=== PATIENT | female | born 1950 | race African-American/Black ===

== ENCOUNTER → 2016-12-27 | Outpatient (CLI) | payer MEDICARE ==
--- NOTE | 2016-12-28 09:18 | MM ---
Reason for exam: screening (asymptomatic). Last mammogram was performed 2 years and 7 months ago. History: Patient is postmenopausal. Benign cyst aspiration of the right breast, 2002. Took hormonal contraceptives for 1 year beginning at age 21. Took estrogen for 1 year beginning at age 46. Physical Findings: A clinical breast exam by your physician is recommended on an annual basis and results should be correlated with mammographic findings. MG 3D Screening Mammo W/Cad Bilateral CC and MLO view(s) were taken. Prior study comparison: June 09, 2014, bilateral MG screening mammo w CAD. May 09, 2012, CAD bilateral diagnostic mammogram. The breast tissue is heterogeneously dense. This may lower the sensitivity of mammography. There is chronic nodularity bilaterally. There is no dominant lesion. There is no discrete abnormality. No significant changes when compared with prior studies. ASSESSMENT: Benign, BI-RAD 2 RECOMMENDATION: Routine screening mammogram of both breasts in 1 year.
== END | disposition home or self-care (01) ==
LOC: RADMAMWWP 13:51
PROVIDERS: ATTEND Family Medicine
DX: Z12.31 Encounter for screening mammogram for malignant neoplasm of breast (principal)
CPT/HCPCS: 77063; G0202

== ENCOUNTER → 2017-04-26 | Outpatient (CLI) | payer MEDICARE ==
--- NOTE | 2017-04-26 22:14 | WWHP ---
[facility] - HISTORY AND PHYSICAL CHIEF COMPLAINT: The patient is here for her routine gynecologic exam. HPI: This is a 66-year-old G4, P3-0-1-3 with an LMP of 1996. She is status post TAE for endometriosis. She states it has been approximately 3 years since her last pelvic exam. She states that a cholesterol medication causes her to have urinary symptoms consisting of dysuria. She discontinued that cholesterol medication about 2 years ago and her symptoms improved. She states since then she has noticed some dropping of her bladder into the vagina. She states she can occasionally feel the bulge at the vaginal opening. She has states her urine flow and bowel movements seem to be slower than in the past. She occasionally has to get to the bathroom right away to urinate and sometimes she can leak if she does not get to the bathroom in time. She does not feel that she empties her bladder completely. PAST MEDICAL HISTORY: Anxiety, elevated cholesterol, type 2 diabetes, chronic hypertension, and hiatal hernia. MEDICATIONS: Alprazolam 0.25 mg daily, aspirin 81 mg q.h.s., Centrum Silver vitamin 1 daily, calcium citrate 250 mg b.i.d., fenofibrate 54 mg b.i.d., Jentadueto 2.10/999 mg daily, losartan 25 mg daily, omeprazole 40 mg daily. ALLERGIES: No known drug allergies. PAST SURGICAL HISTORY: Cholecystectomy 2006, ectopic surgery in the past, TAE in 1996, neck surgeries in 1992 and 1996, shoulder surgery 1996 and 2012. Back surgery 2016. Hernia repair 1967. Tubal ligation 1973. PAST HARDSCAPE FOREMAN HISTORY: She is status post hysterectomy for endometriosis. She has no history of STDs. SOCIAL HISTORY: She quit smoking in 2009 and has 0 to 1 alcohol-containing drink per month. She denies drug use. She has been since 1971 and is retired. FAMILY HISTORY: Brother and sister had an NH. Mother had diabetes. She denies family history of cancer of the breast, uterus or ovaries or colon. PAST OB HISTORY: Three vaginal deliveries and she did have 1 ectopic . REVIEW OF SYSTEMS: About a year ago she lost about 10 pounds but gained about 3 pounds back and this was lost with the diet and exercise. She denies respiratory, cardiac or GI problems. She denies maltreatment or falling. : Occasional leakage with coughing and sneezing. She also feels that she has to get to the bathroom right away on occasion, otherwise, she will leak. PHYSICAL EXAM: Blood pressure 141/86, height 5 feet 7 inches, weight 169 pounds, temperature 96.5, pulse 74. This is a well-developed, well-nourished, black female who is alert and oriented x3, in no acute distress. HEENT: Within normal limits. NECK: Supple without mass or thyromegaly. CHEST AND LUNGS: Clear to auscultation. HEART: Regular rate and rhythm. Breasts are without mass or discharge. Axillary exam is negative for adenopathy. Back negative for CVA tenderness. ABDOMEN: Soft, nontender, without palpable masses. PELVIC EXAM: External genitalia reveals moderate atrophy without lesions. At rest, there is vaginal mucosa at the introitus. This is consistent with a grade 3 cystocele. The vaginal cuff is well-supported. There is also grade 2 to 3 rectocele. There is slight thickening of the mucosal tissue overlying the cystocele at the introitus. This is reducible. Bimanual exam is negative for mass or tenderness. Rectovaginal exam confirms a rectocele but is negative for mass or tenderness. Stool was negative for occult blood. EXTREMITIES: Nontender. IMPRESSION: 1. 66-year-old menopausal female, status post TAE with mildly symptomatic grade 3 cystocele and grade 2 to 3 rectocele. 2. Multiple medical problems. PLAN: 1. Pap smears have been discontinued. 2. Self breast examination was discussed. 3. Mammogram was done on 12/27/2016 and was benign. She will repeat this in 1 year. 4. We have had a long discussion regarding her pelvic prolapse. We discussed options including surgical correction, conservative management and pessary use. At this time, we will proceed with conservative management. She will avoid holding her urine or stool longer than necessary. She will also avoid heavy repetitive lifting. She will try negative Valsalva exercises and this was explained to her. 5. The ACOG handout on pelvic relaxation was given to the patient. She will proceed with conservative management. If she would like to proceed with surgical correction, she will call for re-evaluation and referral. 6. She will return in 1 year and p.r.n. 7. Total time spent with the patient 50 minutes. MMODL / IJN: [id number] /
== END ==
LOC: WWCWWP 10:43
PROVIDERS: ATTEND Obstetrics & Gynecology
DX: Z01.419 Encounter for gynecological examination (general) (routine) without abnormal findings (principal)

== ENCOUNTER → 2017-10-04 | Outpatient (CLI) | payer MEDICARE ==
[2017-10-04 08:39] VITALS: BP 154/83; PULSE 88; RESP 18; TEMP 98.7; BMI 26.7
--- NOTE | 2017-10-04 09:46 | P.HPOB ---
History of Present Illness H&P Date: 10/04/17 Chief Complaint: Patient is here for her routine gynecologic exam. This is a 67-year-old with an LMP of 1996. She status post TAE for benign reasons. The patient has a history of a cystocele and rectocele. She believes she is noticing a greater bulge especially when standing for longer periods of time. She states it is difficult to completely empty out her rectum. She also notices some pelvic discomfort when she has been on her feet a long time. Review of Systems Weight has been stable. She denies respiratory or cardiac problems. G.I.: occasional gastric reflux. She denies maltreatment or falling. : it can be difficult to completely empty the bladder. She does have occasional urinary leakage. Past Medical History Past Medical History: Diabetes Mellitus, Hyperlipidemia, Hypertension, Osteoarthritis (OA) Additional Past Medical History / Comment(s): MIGRAINE HEADACHES, hiatal hernia. Past OB history: 3 vaginal deliveries and one ectopic . Past VIRTUAL CUSTOMER ASSISTANT history: she had endometriosis and underwent TAE for this. She has no history of STDs. History of Any Multi-Drug Resistant Organisms: None Reported Past Surgical History: Cholecystectomy, Hernia Repair, Hysterectomy (TAE in 1996 ), Orthopedic Surgery, Tubal Ligation Additional Past Surgical History / Comment(s): NECK FUSION X2, LEFT SHOULDER, UMBILICAL HERNIA. Surgery for ectopic . Colonoscopy 2013. Past Anesthesia/Blood Transfusion Reactions: No Reported Reaction Past Psychological History: No Psychological Hx Reported Smoking Status: Former smoker (Quit in 2009) Past Alcohol Use History: Rare (0-1 drink per month) Past Drug Use History: None Reported - Past Family History Mother Family Medical History: Diabetes Mellitus Brother(s) Family Medical History: Myocardial Infarction ([place]) Sister(s) Family Medical History: Myocardial Infarction ([place]) Medications and Allergies Home Medications Medication Instructions Recorded Confirmed Type ALPRAZolam [Xanax] 0.25 mg PO BID PRN 09/01/14 10/04/17 History Omeprazole 40 mg PO DAILY 09/07/16 10/04/17 History Calcium Citrate 250 mg PO DAILY 10/04/17 10/04/17 History Fenofibrate 54 mg PO BID 10/04/17 10/04/17 History Lisinopril [Zestril] 10/04/17 History Losartan [Cozaar] 25 mg PO DAILY 10/04/17 10/04/17 History Allergies Allergy/AdvReac Type Severity Reaction Status Date / Time No Known Allergies Allergy Verified 09/07/16 13:47 Exam - Vital Signs Vital signs: Vital Signs Temp Pulse Resp BP 10/04/17 08:19 98.7 F 88 18 154/83 Intake and Output 10/03/17 10/04/17 10/04/17 22:59 06:59 14:59 Other: Weight 77.467 kg Height 5'7", BMI 26.7. This is a well-developed well-nourished black female who is alert and oriented times 3 in no acute distress. HEENT: Within normal limits. NECK: Supple without mass or thyromegaly. CHEST AND LUNGS: Clear to auscultation. HEART: Regular rate and rhythm. BREASTS: Are without mass or discharge. AXILLARY EXAM: Negative for adenopathy. BACK: Negative for CVA tenderness. ABDOMEN: Soft, nontender, without palpable masses. PELVIC EXAM: External genitalia shows a bulge protruding to the introitus. The external genitalia reveals mild atrophy without lesions. Vaginal mucosa is slightly thickened in the area that is seen at the introitus. There is no vaginal excoriation or abnormal discharge. At rest there is a grade 3 cystocele and with Valsalva there is a grade 4 cystocele protruding past the introitus about 3 cm. A grade 2-3 rectocele is noted. The vaginal cuff is fairly well supported. Bimanual examination is negative for mass or tenderness. RECTAL EXAM: Rectovaginal exam is negative for mass or tenderness and is negative for occult blood. Rectal exam does confirm the rectocele. There is no evidence of any significant enterocele. EXTREMITIES: Nontender. IMPRESSION: 1. 57-year-old menopausal female status post TAE with symptomatic grade 4 cystocele and grade 2 to 3 rectocele. 2. History of osteopenia PLAN: 1. Pap smears have been discontinued. 2. Self breast awareness was discussed. 3. Screening mammogram will be due in 3 months and an order was given to the patient for this. 4. Bone density screening was recommended and an order slip was given the patient for this. She will do this at the time of her mammogram. 5. Because of her symptomatic cystocele and rectocele, she will be referred for possible surgical correction. 6. She will return in one year.
--- NOTE | 2017-10-24 08:34 | P.PN ---
Progress Note - Text Progress Note Date: 10/24/17 The patient has seen Dr. Blackwell regarding her pelvic prolapse. She was seen on 10/18/2017. She has been scheduled for cystocele and rectocele correction on . Please see her letter for additional details.
== END | disposition home or self-care (01) ==
LOC: WWCWWP 08:19
PROVIDERS: ATTEND Obstetrics & Gynecology
DX: Z53.9 Procedure and treatment not carried out, unspecified reason (principal)

== ENCOUNTER → 2017-11-10 | Outpatient (CLI) | payer MEDICARE ==
[2017-11-10 19:18] LABS: Blood Urea Nitrogen 17 mg/dL (7-17)
--- NOTE | 2017-11-10 23:49 | MR ---
EXAMINATION TYPE: MR lumbar spine wo/w con DATE OF EXAM: 11/10/2017 COMPARISON: 02/17/2011 HISTORY: LBP, LLE radic, surgery 03-07-17 TECHNIQUE: Multiplanar, multisequence images of the lumbar spine were acquired utilizing 7.5 mL intravenous Gada vist gadolinium contrast. The vertebra have fairly normal alignment. There is slight narrowing of the lumbar disc spaces. There is a small posterior disc bulge at L4-5. There is posterior disc bulging at T11-12. There is no lumb ar paraspinal mass. There is laminectomy defect at L5 on the left side. There is some mild epidural e nhancement at the surgery site. There is left-sided neural foraminal narrowing at L4-5 due to facet a rthropathy and disc bulging. IMPRESSION: There is new posterior disc bulging and herniation at L4-5 compared to old exam. There is new left-si ded neural foraminal stenosis due to disc bulging and facet arthropathy. No fracture. There is stable T11-12 disc bulging. There is some epidural scarring at the surgery site at left-sided L5 laminectom y.
== END | disposition home or self-care (01) ==
LOC: RADMRIMAIN 18:41
PROVIDERS: ATTEND Family Medicine
DX: M51.26 Other intervertebral disc displacement, lumbar region (principal); M99.73 Connective tissue and disc stenosis of intervertebral foramina of lumbar region; M46.96 Unspecified inflammatory spondylopathy, lumbar region; M46.86 Other specified inflammatory spondylopathies, lumbar region
CPT/HCPCS: 82565; 84520; 72158; 36415; A9581

== ENCOUNTER → 2017-11-14 | Outpatient (CLI) | payer MEDICARE ==
[2017-11-14 13:10] LABS: Basophils % (A) 1 %; Eosinophils # (A) 0.2 k/uL (0-0.7); Eosinophils % (A) 3 %; HCT 37.3 % (34.0-46.0); HGB 11.8 gm/dL (11.4-16.0); Lymphocytes % (A) 27 %; MCH 28.7 pg (25.0-35.0); MCHC 31.6 g/dL (31.0-37.0); MCV 90.8 fL (80.0-100.0); Monocytes # (A) 0.4 k/uL (0-1.0); Monocytes % (A) 5 %; Neutrophils # (A) 4.7 k/uL (1.3-7.7); Neutrophils % (A) 63 %; Platelet Count 345 k/uL (150-450); RBC 4.11 m/uL (3.80-5.40); RDW 13.2 % (11.5-15.5); WBC 7.4 k/uL (3.8-10.6)
[2017-11-14 13:23] LABS: Anion Gap 15 mmol/L; Blood Urea Nitrogen 17 mg/dL (7-17); Carbon Dioxide 24 mmol/L (22-30); Chloride 104 mmol/L (98-107); Glucose 186 mg/dL (74-99); Potassium 4.4 mmol/L (3.5-5.1); Sodium 143 mmol/L (137-145)
== END | disposition home or self-care (01) ==
LOC: LABPAT 12:13
PROVIDERS: ATTEND Obstetrics & Gynecology
DX: Z01.812 Encounter for preprocedural laboratory examination (principal); N81.6 Rectocele; E11.9 Type 2 diabetes mellitus without complications; I10 Essential (primary) hypertension
CPT/HCPCS: 36415; 80051; 82565; 82947; 84520; 85025; 87086

== ENCOUNTER 2017-11-21 06:03 | Day surgery (SDC) | payer MEDICARE ==
--- NOTE | 2017-11-16 10:48 | HP ---
HISTORY AND PHYSICAL H and P on this patient for surgery this coming November 21. This is a 67-year-old female who presents with an increasingly symptomatic bulge of the perineal body. This has been progressing over the past 2 years. She is status post hysterectomy for benign indications. She was initially seen and evaluated by Dr. Mendieta, and referred here with cystocele and rectocele. The patient is currently symptomatic, she denies dyspareunia. She does report symptoms of increasing pressure and bulge of the perineal body, worse with any activity, walking, lifting, or coughing. She denies vaginal bleeding. No other urinary or rectal symptoms. PAST MEDICAL HISTORY: Past medical history is significant for diabetes, heart murmur, hiatal hernia, hyperlipidemia, hypertension, migraine headaches, osteoarthritis, and ulcer ulcers. PAST SURGICAL HISTORY: Back surgery at the [facility] in 2016, cholecystectomy, colonoscopy, herniorrhaphy, neck surgery 1991 and 1996, shoulder surgery of the left shoulder x2, total abdominal hysterectomy for benign indications in 1996. CURRENT MEDICATIONS: 1. Centrum Silver vitamin daily. 2. Citracal daily. 3. Glipizide metformin 5/500 mg tablets twice daily. 4. Losartan 25 mg daily. 5. Omeprazole 40 mg once daily. 6. Baby aspirin daily. ALLERGIES: None known. FAMILY HISTORY: Significant for diabetes and myocardial infarction. REPRODUCTIVE HISTORY: Significant for 3 full-term vaginal deliveries as well as 1 miscarriage. SOCIAL HISTORY: The patient is a former smoker, quit 2009. She drinks 1 to 2 cups of coffee daily. She admits to social alcohol, denies any illicit drug use. REVIEW OF SYSTEMS: Review of systems is otherwise negative. PHYSICAL EXAMINATION: On exam, this is a pleasant black female, 5 feet 6 inches, 167 pounds, BMI is 27, blood pressure 140/70, afebrile. The HEENT exam reveals no thyromegaly, good dentition, no unusual cervical lymphadenopathy. Chest is clear to auscultation in all murcia anteriorly and posteriorly. Cardiac exam reveals regular rate and rhythm with no murmur, click, or rub. Abdomen is soft, mildly obese, no organosplenomegaly, active bowel sounds. Breast exam reveals them to be bilaterally symmetric to inspection with no skin dimpling, nipple discharge, axillary adenopathy, or discernible lesions or masses. Extremities reveal no edema. There are good peripheral pulses. On genital examination, the external genitalia appear normal for age. No unusual discharge. There is a grade 4 cystocele present, a grade 2 to 3 rectocele, good vaginal vault suspension. Rectal exam confirms the same, FIT negative stool. IMPRESSION: 1. Increasingly symptomatic grade 4 cystocele and grade 2 to 3 rectocele, patient choosing surgical repair. 2. Multiple medical problems including hypertension and diabetes. PLAN: We will proceed with cystocele and rectocele repair. The ACOG pamphlet on this procedure have been given to the patient and I have discussed the risks, benefits, and alternatives with her in detail. We reviewed the risks to include but not be exclusive of bleeding, infection, perforation or damage to bowel, bladder, ureters, or indeed any pelvic or abdominal organs. Second opinion has been offered and declined. I believe she understands the discussion with no further reservation. MMODL / IJN: [id number] /
[2017-11-20 08:28] VITALS: BMI 25.8
[~2017-11-21 06:03] MED LIST: DEXAMETHASONE SOD PHOSPHATE 10 MG/ML 1 ML VIAL IV ONE; LACTATED RINGERS 1,000 ML IV SCH; MIDAZOLAM 2 MG/2 ML VIAL IV PRN; ceFAZolin IN SWFI 2 GM/20 ML SYRINGE IVP ONE; fentaNYL (PF) 50 MCG/ML 2 ML AMP IV PRN
[2017-11-21] MEDS ORDERED: ONDANSETRON 4 MG/2 ML VIAL IVP ONE (06:50)
[2017-11-21] MEDS ORDERED: LIDOCAINE 1% 20 ML VIAL (10MG/ML) FOR IV START INTRADERMA ONE (06:50)
[2017-11-21 07:14] LABS: Glucose,Whole Blood 41 mg/dL (75-99)
[2017-11-21 07:14] LABS: Glucose,Whole Blood 85 mg/dL (75-99)
[2017-11-21] MEDS ORDERED: fentaNYL (PF) 50 MCG/ML 2 ML AMP ONE (07:27)
[2017-11-21] MEDS ORDERED: PROPOFOL 10 MG/ML 20 ML VIAL IV ONE (07:27)
[2017-11-21] MEDS ORDERED: MIDAZOLAM 2 MG/2 ML VIAL ONE (07:27)
[2017-11-21] MEDS ORDERED: BACITRACIN 500 UNIT/GM OINT 28.4 GM TUBE TOPICAL ONE (08:02)
[2017-11-21] MEDS ORDERED: VASOPRESSIN 20 UNIT/ML 1 ML VIAL SQ ONE (08:03)
[2017-11-21] MEDS ORDERED: IBUPROFEN 600 MG TAB PO PRN (08:43)
[2017-11-21] MEDS ORDERED: ZOLPIDEM 5 MG TAB PO PRN (08:43)
[2017-11-21] MEDS ORDERED: METOCLOPRAMIDE 5 MG/ML 2 ML VIAL IVP PRN (08:43)
--- NOTE | 2017-11-21 08:43 | P.OP ---
Date of Procedure: 11/21/17 Preoperative Diagnosis: Increasingly symptomatic grade 2-3 rectocele and grade 4 cystocele. Postoperative Diagnosis: same Procedure(s) Performed: anterior and posterior colporrhaphy Anesthesia: BAILEYA Surgeon: Rhoda Blackwell Command Post Superintendent #1: Elgin Bruno Estimated Blood Loss (ml): 10 IV fluids (ml): 600 Urine output (ml): 50 Pathology: none sent Condition: stable Disposition: PACU Description of Procedure: Patient is brought to the operating suite after a spinal with Duramorph is placed, she is positioned in the dorsal lithotomy position. The appropriate timeout is performed to assure proper patient and procedural identification. Antibiotics are given. The perineal body, vaginal vault, and lower abdomen are all prepped and draped in usual sterile fashion. Bladder is drained for 50 mL of clear yellow urine. Weighted speculum was placed into the vagina and the uterosacral cardinal ligament dimples are identified and grasped with Allis clamps. Scalpel was used to incise between the 2 Allis clamps. Anterior mucosa is injected with dilute Pitressin solution. Metzenbaum scissors are used in the midline to undermine and separate the mucosa from the underlying fascial plane. Metzenbaum scissors are used to incise this tissue to approximately 1.5 cm inferior to the urethra. The mucosal edges are grasped with Allis clamps and a fanlike fashion and a sponge rolled finger is used to separate the mucosa from the underlying fascial plane. 2-0 Vicryl sutures used in the midline to bring the fascial edges together thereby completely obliterating the cystocele. Dodge catheter is placed in the urine is clear. Metzenbaum scissors are used to trim the redundant mucosa and 2 -0 Vicryl is then used in a running locking stitch to repair the anterior vaginal wall. A triangular portion of tissue is then removed from the perineal body. The posterior peritoneum is injected with the same dilute Pitressin solution, Metzenbaum scissors are used in the midline to separate the mucosa from the underlying fascial plane. Metzenbaum scissors are used to trim this mucosa and the edges are grasped with Allis clamps again and a fanlike fashion. Sponge rolled finger is used to separate the fascial plane from the underlying mucosa. 2-0 Vicryl is used to bring the fascial edges together thereby completely obliterating the rectocele. The mucosa is trimmed, 2-0 Vicryl is used in a running locking stitch with an episiotomy-like closure to finish. Rectal exam reveals intact mucosa. Vagina is packed with one-inch iodophor gauze with basic tracing. Dodge is noted to be draining clear urine. All sponge needle and enhancement counts are correct. Patient is brought back to recovery room in excellent condition with stable vital signs, pulse 57, 100% O2 saturation, blood pressure 108/57.
[2017-11-21 09:42] LABS: Glucose,Whole Blood 110 mg/dL (75-99)
[2017-11-21] MEDS ORDERED: HYDROmorphone 0.5 MG/0.5 ML SYRINGE IVP PRN (09:47)
[2017-11-21] MEDS ORDERED: diphenhydrAMINE 50 MG/ML 1 ML VIAL IVP PRN (09:47)
[2017-11-21] MEDS ORDERED: NALOXONE 0.4 MG/ML 1 ML VIAL IV PRN (09:47)
[2017-11-21] MEDS ORDERED: NALBUPHINE 10 MG/ML AMPUL IV PRN (09:47)
[2017-11-21] MEDS ORDERED: LACTATED RINGERS 1,000 ML IV ONE (09:50)
[2017-11-21] MEDS: ONDANSETRON 4 MG/2 ML VIAL IVP ONE ×2 (11:32→16:56)
[2017-11-21] MEDS: diphenhydrAMINE 50 MG/ML 1 ML VIAL IVP PRN (18:43)
[2017-11-21] MEDS ORDERED: BISACODYL 5 MG TABLET.DR PO SCH (21:00)
--- NOTE | 2017-11-22 07:24 | P.PN ---
Progress Note - Text Progress Note Date: 11/22/17 Postoperative day 1 status post cystocele repair, under spinal anesthesia, and intrathecal morphine given for postoperative analgesia, patient doing well, there is no anesthesia related complications, Patient had no headache, vital signs stable , Assessment and plan= postop day 1 , doing well there is no anesthesia related complication.
[2017-11-22] MEDS ORDERED: glipiZIDE 5 MG TAB PO SCH (07:30)
[2017-11-22] MEDS ORDERED: PANTOPRAZOLE 40 MG TABLET PO SCH (07:30)
[2017-11-22] MEDS ORDERED: metFORMIN 500 MG TAB PO SCH (07:30)
[2017-11-22] MEDS: diphenhydrAMINE 50 MG/ML 1 ML VIAL IVP PRN (08:06)
--- NOTE | 2017-11-22 08:07 | P.DS ---
Providers Date of admission: 11/21/17 Expected date of discharge: 11/22/17 Attending physician: Rhoda Blackwell Primary care physician: [facility] Course: This is a 67-year-old black female who presented, status post hysterectomy many years ago, with an increasing perineal bulge. Evaluation was consistent with grade 4 cystocele, grade 2-3 rectocele. After thorough consultation patient elected to proceed with surgical repair. Please see my dictated history and physical for details. Patient was admitted yesterday and underwent an anterior and posterior colporrhaphy. She did very well, a spinal with Duramorph was utilized. Surgery was unremarkable, vagina packed with iodoform gauze, please see dictated operative note for details. This morning the patient is doing very well. Dodge catheter and vaginal packing been removed. She is passing flatus without difficulty, tolerating regular diet, and ambulating. Bladder training has commenced. Vital signs upon stable and the patient is afebrile. The extremities reveal no edema. The chest is clear in all murcia. Pending successful bladder training, my plan is for discharge home later today. She is in very good condition for discharge home. Patient will follow-up with me in the office in 2 weeks. I have reminded her no intercourse, tampons or douching. She will use [id number] ibuprofen products as needed for pain, 200 mg pills, 3 every 6 hours as needed. She will call with any fevers shakes or chills, bloody or copious vaginal drainage, with any issues with her extremities or breathing, or indeed with any questions or concerns. Patient Condition at Discharge: Good Plan - Discharge Summary Discharge Rx Participant: No New Discharge Prescriptions: No Action Losartan [Cozaar] 25 mg PO DAILY Fenofibrate 54 mg PO DAILY Calcium Citrate 250 mg PO DAILY Esomeprazole Magnesium [NexIUM] 40 mg PO DAILY glipiZIDE/METFORMIN HCL [glipiZIDE/METFORMIN HCL 5-500 mg] 1 each PO BID Vitamin E Acetate [Vitamin E] 200 unit PO DAILY Vitamin C/Biotin [Hair, Skin and Nails] 1 tab PO DAILY Multivit/Folic Acid/Vit K1 [One-A-Day Women's 50 Plus Tab] 1 each PO DAILY Discharge Medication List Calcium Citrate 250 mg PO DAILY 10/04/17 [History] Fenofibrate 54 mg PO DAILY 10/04/17 [History] Losartan [Cozaar] 25 mg PO DAILY 10/04/17 [History] Esomeprazole Magnesium [NexIUM] 40 mg PO DAILY 11/20/17 [History] Multivit/Folic Acid/Vit K1 [One-A-Day Women's 50 Plus Tab] 1 each PO DAILY 11/20 [History] Vitamin C/Biotin [Hair, Skin and Nails] 1 tab PO DAILY 11/20/17 [History] Vitamin E Acetate [Vitamin E] 200 unit PO DAILY 11/20/17 [History] glipiZIDE/METFORMIN HCL [glipiZIDE/METFORMIN HCL 5-500 mg] 1 each PO BID [History] Follow up Appointment(s)/Referral(s): Rhoda Blackwell MD [STAFF PHYSICIAN] - 2 Weeks Discharge Disposition: HOME SELF-CARE
[2017-11-22] MEDS ORDERED: GLIPIZIDE PO SCH (09:00)
[2017-11-22] MEDS ORDERED: METFORMIN HCL PO SCH (09:00)
[2017-11-22] MEDS ORDERED: LOSARTAN 25 MG TAB PO SCH (09:00)
[2017-11-22 09:16] VITALS: BP 148/67; PULSE 77; RESP 17; TEMP 98.6
[2017-11-22] MEDS ORDERED: FENOFIBRATE 54 MG TAB PO SCH (21:00)
== END 2017-11-22 10:47 | disposition home or self-care (01) ==
LOC: OR 06:03 → 6PED 08:50 → OR 11-22 10:47
PROVIDERS: ATTEND Obstetrics & Gynecology
DX: E11.9 Type 2 diabetes mellitus without complications (principal); Z79.84 Long term (current) use of oral hypoglycemic drugs; R01.1 Cardiac murmur, unspecified; E78.5 Hyperlipidemia, unspecified; I10 Essential (primary) hypertension; M19.90 Unspecified osteoarthritis, unspecified site; Z87.891 Personal history of nicotine dependence; K21.9 Gastro-esophageal reflux disease without esophagitis; Z79.899 Other long term (current) drug therapy; Z79.82 Long term (current) use of aspirin
CPT/HCPCS: 57260; J2250; J1200 ×2; J1100; J2765; J2405; J3010; J2704; J0690; 86850; 86900; 86901

== ENCOUNTER → 2017-12-06 | Outpatient (CLI) | payer MEDICARE ==
[2017-12-06 14:26] LABS: ALT 28 U/L (9-52); AST 23 U/L (14-36); Cholesterol 220 mg/dL (<200); HDL Cholesterol 41 mg/dL (40-60); LDL Cholesterol,Calculated 157 mg/dL (0-99); Triglycerides 108 mg/dL (<150)
== END | disposition home or self-care (01) ==
LOC: LABWHC1 13:33
PROVIDERS: ATTEND Internal Medicine Cardiovascular Disease
DX: E78.2 Mixed hyperlipidemia (principal)
CPT/HCPCS: 36415; 80061; 84450; 84460

== ENCOUNTER → 2018-02-07 | Outpatient (CLI) | payer MEDICARE ==
--- NOTE | 2018-02-07 17:26 | BD ---
EXAMINATION TYPE: Axial Bone Density DATE OF EXAM: 02/07/2018 COMPARISON: 2014 CLINICAL HISTORY: 67-year-old female post menopausal Height: 5'4 Weight: 163 FRAX RISK QUESTIONS: Secondary Osteoporosis: RISK FACTORS HISTORY OF: Postmenopausal woman: MEDICATIONS: Additional Medications: acid reflux, blood pressure, migraine pills Additional History: EXAM MEASUREMENTS: Bone mineral densitometry was performed using the RAREFORM System. Bone mineral density as measured about the Lumbar spine is: ----- L1-L4(G/cm2): 1.208 T Score Values are as follows: ----- L2: -0.7 ----- L3: 0.1 ----- L4: 1.9 ----- L1-L4:0.2 Bone mineral density has: Increased 6.5% since study of: 10/29/2014 Bone mineral density about the R hip (g/cm2): 0.947 Bone mineral density about the L hip (g/cm2): 0.787 T Score values are as follows: -----R Neck: -0.7 -----L Neck: -1.8 -----R Total: -1.1 -----L Total: -1.8 Bone mineral density has: Decreased -3.2% since study of: 10/29/2014 IMPRESSION: Osteopenia (T Score between -2.5 and -1). There is slightly increased risk of fracture and the patient may be considered for treatment. Re-Screen 2-5 years. NOTE: T-SCORE=SD OF THE YOUNG ADULT MEAN.
--- NOTE | 2018-02-13 12:03 | P.PN ---
Progress Note - Text Progress Note Date: 02/13/18 OUTPATIENT FOLLOW-UP NOTE TEST(S)/RESULTS: bone density test done on 02/07/2018 shows osteopenia. METHOD OF NOTIFICATION: the patient was notified by phone. PATIENT COMMENTS: the patient understands the results. DIAGNOSIS: osteopenia DISCUSSION: PLAN: I recommended that she worked hard on getting adequate amounts of calcium , vitamin D and regular exercise. A handout on calcium and vitamin D intake was mailed to the patient. We will plan on repeating the bone density testing in 2 to 3 years.
--- NOTE | 2018-02-13 17:16 | MM ---
Reason for exam: screening (asymptomatic). Last mammogram was performed 1 year and 1 month ago. History: Patient is postmenopausal. Benign cyst aspiration of the right breast, 2002. Took hormonal contraceptives for 1 year beginning at age 21. Took estrogen for 1 year beginning at age 46. MG 3D Screening Mammo W/Cad Bilateral CC and MLO view(s) were taken. Prior study comparison: December 27, 2016, bilateral MG 3d screening mammo w/cad. June 09, 2014, bilateral MG screening mammo w CAD. May 09, 2012, CAD bilateral diagnostic mammogram. The breast tissue is heterogeneously dense. This may lower the sensitivity of mammography. No suspicious abnormality. No significant new finding since prior exam. ASSESSMENT: Negative, BI-RAD 1 RECOMMENDATION: Routine screening mammogram of both breasts in 1 year.
== END | disposition home or self-care (01) ==
LOC: RADMAMWWP 13:55
PROVIDERS: ATTEND Obstetrics & Gynecology
DX: Z12.31 Encounter for screening mammogram for malignant neoplasm of breast (principal); M85.80 Other specified disorders of bone density and structure, unspecified site; Z78.0 Asymptomatic menopausal state
CPT/HCPCS: 77063; 77067; 77080

== ENCOUNTER → 2018-05-28 | Outpatient (CLI) | payer MEDICARE ==
--- NOTE | 2018-05-28 23:55 | CT ---
EXAMINATION TYPE: CT abdomen wo con DATE OF EXAM: 05/28/2018 COMPARISON: None HISTORY: 67-year-old female Epigastric pain, GERD TECHNIQUE: Contiguous axial scanning of the abdomen without IV contrast. Coronal and sagittal reconst ructions performed. CT DLP: 265.5 mGycm Automated exposure control for dose reduction was used. FINDINGS: The heart is normal size without pericardial effusion. Calcified granuloma posterior right base. Tiny calcified lymph node in the lower left paraesophageal region, also in keeping with prior granulomato us disease.. No pleural effusion. Tiny calcified granuloma in the hepatic dome. Otherwise, noncontrast appearance of the liver, adrenal glands, kidneys, and spleen show no gross abnormality. Lack of IV contrast decreases sensitivity. Ca lcified granuloma within the spleen with a hilar splenule noted. Gallbladder surgically absent. Mixture of ingested debris and oral contrast within the stomach. No dilated small bowel, free fluid, or free air. No mesenteric or retroperitoneal lymphadenopathy. Moderate stool burden without pericolonic inflammatory change seen within the upper abdomen. Postsurgical changes of L4-L5 posterior fusion with laminectomy. Fixed grade 1 anterolisthesis at thi s level. Degenerative disc disease lower thoracic spine. Note that the pelvis is not imaged study. IMPRESSION: 1. MODERATE STOOL BURDEN. 2. STATUS POST CHOLECYSTECTOMY. NO ACUTE INFLAMMATORY PROCESS IDENTIFIED IN THE UPPER ABDOMEN TO EXPL AIN THE PATIENT'S SYMPTOMS. LACK OF IV CONTRAST DECREASES SENSITIVITY.
== END | disposition home or self-care (01) ==
LOC: RADCTMAIN 13:38
PROVIDERS: ATTEND Family Medicine
DX: R10.13 Epigastric pain (principal); K21.9 Gastro-esophageal reflux disease without esophagitis; Z90.49 Acquired absence of other specified parts of digestive tract; Z88.8 Allergy status to other drugs, medicaments and biological substances
CPT/HCPCS: 74150

== ENCOUNTER → 2018-11-23 | Outpatient (CLI) | payer MEDICARE ==
--- NOTE | 2018-11-23 13:34 | CT ---
EXAMINATION TYPE: CT abdomen pelvis wo con DATE OF EXAM: 11/23/2018 COMPARISON: 05/28/2018 HISTORY: Left flank pain CT DLP: 563 mGycm Automated exposure control for dose reduction was used. TECHNIQUE: Helical acquisition of images was performed from the lung bases through the pelvis. FINDINGS: LUNG BASES: Lung bases are clear. Calcified lymph node in the paraesophageal region stable. Trace of pericardial fluid noted LIVER/GB: Calcified granuloma at the hepatic dome level is stable. Postcholecystectomy changes noted. PANCREAS: Slight fullness to the body of the pancreas and there is ill-definition the peripancreatic fat. SPLEEN: Tiny splenic granuloma noted. ADRENALS: Stable chronic thickening of left adrenal gland. KIDNEYS: No hydronephrosis or nephrolithiasis. Minimal cortical loss on the left is stable. ADENOPATHY: None visualized. OSSEOUS STRUCTURES: Postsurgical changes of L4-L5 posterior fusion with laminectomy. Fixed grade 1 a nterolisthesis at this level. Degenerative disc disease lower thoracic spine. BOWEL: Bowel gas pattern nonspecific. Retained: Content throughout the bowel. OTHER: Atherosclerotic change of the aorta. No evidence of aneurysm. Bladder somewhat low in position correlate for cystocele. IMPRESSION: 1. There is fullness to the pancreatic body and questionable ill definition the fat. No IV contrast w as administered. Recommend assessment with pancreatic enzymes to exclude a mild pancreatitis. Follow- up IVP study could be obtained to assess the pancreas to exclude underlying mass. 2. No hydronephrosis or nephrolithiasis. 3. Correlate for constipation. A [place] level critical message alert has been initiated for Fernandez Iraheta Jr, DO via the [employer] Critical Results System on 11/23/2018 1:31 PM. This message alert has been sent to Fernandez garcia Jr, DO via the preferences provided by the clinician for the receipt of Radiology Critical Finding s. Message ID [id number].
== END | disposition home or self-care (01) ==
LOC: RADCTMAIN 12:16
PROVIDERS: ATTEND Family Medicine
DX: R93.5 Abnormal findings on diagnostic imaging of other abdominal regions, including retroperitoneum (principal); R10.9 Unspecified abdominal pain
CPT/HCPCS: 74176

== ENCOUNTER → 2018-11-28 | Day surgery (SDC) | payer MEDICARE ==
[2018-11-27 13:18] VITALS: BMI 23.8
[~2018-11-28] MED LIST changes: -DEXAMETHASONE SOD PHOSPHATE 10 MG/ML 1 ML VIAL IV ONE; +LACTATED RINGERS 1,000 ML IV ONE; +LIDOCAINE 1% 20 ML VIAL (10MG/ML) FOR IV START INTRADERMA PRN; +LIDOCAINE 1% INJ 10MG/ML (20 ML MDV) ONE; -MIDAZOLAM 2 MG/2 ML VIAL IV PRN; +PROPOFOL 10 MG/ML 20 ML VIAL IV ONE; -ceFAZolin IN SWFI 2 GM/20 ML SYRINGE IVP ONE; -fentaNYL (PF) 50 MCG/ML 2 ML AMP IV PRN
[2018-11-28 07:40] VITALS: TEMP 97.9
[2018-11-28 07:53] LABS: Glucose,Whole Blood 77 mg/dL (75-99)
--- NOTE | 2018-11-28 08:24 | P.PCN ---
Date of Procedure: 11/28/18 Procedure(s) Performed: Brief history: Patient is a pleasant 68-year-old female, scheduled for an elective upper endoscopy as well as colonoscopy as a part of evaluation of abdominal pain, change in bowel habits, long-standing history of GERD. Procedure performed: Esophagogastroduodenoscopy with biopsy Colonoscopy Preoperative diagnosis: Chronic epigastric pain/GERD Change in bowel habits Anesthesia: MAC Procedure: After informed consent was obtained from the patient was brought into the endoscopy unit and IV sedation was administered by anesthesia under continuous monitoring. Initially upper endoscopy was done. The Olympus GF 160 video endoscope was inserted inserted into the mouth and esophagus intubated without any difficulty and was gradually advanced into the stomach and duodenum and carefully examined. The bulb and second part of the duodenum appeared normal. The scope was then withdrawn into the stomach adequately insufflated with air and upon careful examination the antrum and body, cardia and fundus appeared normal. Small gastric polyps noted in the proximal body which was biopsied. The scope was then withdrawn into the esophagus. The GE junction was located at 40 cm to the incisors. It appeared regular with no erythema erosions or ulcerations. Rest of the esophagus appeared normal. Patient tolerated the procedure well. At this time the patient continued to remain sedation. Initial digital rectal examination was normal. Olympus CF 160 video colonoscope was then inserted into the rectum and gradually advanced to the cecum without any difficulty. Careful examination was performed as the scope was gradually being withdrawn. The prep was excellent. The cecum, ascending colon, transverse colon, descending colon, sigmoid colon and rectum appeared normal. Retroflexion was performed in the rectum and grade 2 internal hemorrhoids were noted. Patient tolerated the procedure well. Impression: 1. Upper endoscopy revealed small gastric polyps. 2. Colonoscopy was essentially within normal limits with no evidence of colitis or colorectal neoplasia. Recommendations: Findings of this examination were discussed with the patient as well as a family. She was advised to follow with the biopsy results. She can have a repeat screening colonoscopy in 10 years
[2018-11-28 08:42] VITALS: BP 120/69; PULSE 57; RESP 18
== END | disposition home or self-care (01) ==
LOC: ORWHC2ENDO 07:21
PROVIDERS: ATTEND Internal Medicine Gastroenterology
DX: K31.7 Polyp of stomach and duodenum (principal); K64.8 Other hemorrhoids; R19.4 Change in bowel habit; G89.29 Other chronic pain; K21.9 Gastro-esophageal reflux disease without esophagitis; I10 Essential (primary) hypertension; Z79.899 Other long term (current) drug therapy
CPT/HCPCS: 88305; 43239; 45378; J2001; J2704

== ENCOUNTER → 2019-01-23 | Outpatient (CLI) | payer MEDICARE ==
--- NOTE | 2019-01-23 15:07 | US ---
EXAMINATION TYPE: US transvaginal DATE OF EXAM: 01/23/2019 COMPARISON: CT 11/23/2018 CLINICAL HISTORY: R10.2 Pelvic and perineal pain. Bowel issues. Patient states she had a hysterectomy but cannot remember if they took her ovaries out. TECHNIQUE: . Transvaginal sonographic images of the pelvis were acquired. Date of LMP: EXAM MEASUREMENTS: Uterus: Surgically absent Endometrial Stripe: Surgically absent Right Ovary: Not visualized Left Ovary: Not visualized 1. Uterus: Surgically absent 2. Endometrium: Surgically absent 3. Right Ovary: Not visualized 4. Left Ovary: Not visualized 5. Bilateral Adnexa: Within the right adnexa, there is an anechoic area visualized measuring 1.4 x 0 .5 x 1.1 cm of unknown etiology 6. Posterior cul-de-sac: wnl IMPRESSION: Oval hypoechoic anechoic area right adnexa favors remnant normal size right ovary. No def initive CT correlate identified but no suspicious lesions right adnexa noted on recent CT. Consider p recautionary follow-up ultrasound in 6 months time to reassess.
== END | disposition home or self-care (01) ==
LOC: RADUSWWP 14:11
PROVIDERS: ATTEND Nurse Practitioner Family
DX: R10.2 Pelvic and perineal pain (principal)
CPT/HCPCS: 76830

== ENCOUNTER → 2019-02-06 | Outpatient (CLI) | payer MEDICARE | END | disposition home or self-care (01) | LOC: LABWHC1 15:43 | PROVIDERS: ATTEND Obstetrics & Gynecology | DX: N83.201 Unspecified ovarian cyst, right side (principal) | CPT/HCPCS: 36415; 86304 ==

== ENCOUNTER 2019-02-07 08:52 | Observation (INO) | payer MEDICARE ==
[2019-02-07] MEDS ORDERED: ONDANSETRON 4 MG/2 ML VIAL IVP STA (09:27)
[2019-02-07] MEDS ORDERED: SODIUM CHLORIDE 0.9% 500 ML 500 ML IV STA (09:27)
--- NOTE | 2019-02-07 09:30 | ED ---
General Adult HPI - General Chief complaint: Abdominal Pain Stated complaint: Abd Pain Time Seen by Provider: 02/07/19 09:10 Source: patient, RN notes reviewed Mode of arrival: ambulatory Limitations: no limitations - History of Present Illness Initial comments: This is a 68-year-old female presents emergency Department complaining of abdominal pain. Patient states started back in May. Patient states it was coming once or twice a month and now is becoming much more frequent. Patient states she seen her primary medical care doctor but he has not been able to figure out what the problem is. Patient states she woke up this morning with severe lower abdominal pain and she says it radiates up her left flank. Patient states she vomited times one and is nauseated. Patient also had one episode of diarrhea today. Patient denies any fever chills. Patient states she's had hernia repair in her abdomen in the past and a cholecystectomy. Patient denies any chest pain difficulty breathing shortness of breath. Patient denies any dysuria hematuria urinary frequency. - Related Data Home Medications Medication Instructions Recorded Confirmed Calcium Citrate 250 mg PO DAILY 10/04/17 02/07/19 Fenofibrate 54 mg PO DAILY 10/04/17 02/07/19 Losartan [Cozaar] 25 mg PO DAILY 10/04/17 02/07/19 Multivit/Folic Acid/Vit K1 1 tab PO DAILY 11/20/17 02/07/19 [One-A-Day Women's 50 Plus Tab] Vitamin E Acetate [Vitamin E] 200 unit PO DAILY 11/20/17 02/07/19 Insulin Glargine [Lantus] 22 unit SQ HS 02/07/19 02/07/19 Allergies Allergy/AdvReac Type Severity Reaction Status Date / Time Dobhbut-Ekg-Zkz Reductase Allergy Swelling Verified 02/07/19 09:39 Inhibitor Review of Systems ROS Statement: Those systems with pertinent positive or pertinent negative responses have been documented in the HPI. ROS Other: All systems not noted in ROS Statement are negative. Past Medical History Past Medical History: Diabetes Mellitus, GERD/Reflux, Hyperlipidemia, Hypertension, Osteoarthritis (OA) Additional Past Medical History / Comment(s): MIGRAINE HEADACHES, hiatal hernia, weight loss, abd. pain after eating, constipation History of Any Multi-Drug Resistant Organisms: None Reported Past Surgical History: Back Surgery, Bladder Surgery, Cholecystectomy, Hernia Repair, Hysterectomy, Orthopedic Surgery, Tubal Ligation Additional Past Surgical History / Comment(s): NECK FUSION X2, LEFT SHOULDER,UMBILICAL HERNIA. Surgery for ectopic . back surg. x2 Past Anesthesia/Blood Transfusion Reactions: No Reported Reaction Past Psychological History: No Psychological Hx Reported Smoking Status: Former smoker Past Alcohol Use History: None Reported Past Drug Use History: None Reported - Past Family History Mother Family Medical History: Diabetes Mellitus Brother(s) Family Medical History: Myocardial Infarction ([place]) Sister(s) Family Medical History: Myocardial Infarction ([place]) General Exam - General Exam Comments Initial Comments: GENERAL: Patient is well-developed and well-nourished. Patient is nontoxic and well- hydrated and is in mild distress. ENT: Neck is soft and supple. No significant lymphadenopathy is noted. Oropharynx is clear. Moist mucous membranes. Neck has full range of motion without eliciting any pain. EYES: The sclera were anicteric and conjunctiva were pink and moist. Extraocular movements were intact and pupils were equal round and reactive to light. Eyelids were unremarkable. PULMONARY: Unlabored respirations. Good breath sounds bilaterally. No audible rales rhonchi or wheezing was noted. CARDIOVASCULAR: There is a regular rate and rhythm without any murmurs gallops or rubs. ABDOMEN: Soft and nontender with normal bowel sounds. No palpable organomegaly was noted. There is no palpable pulsatile mass. I was unable to palpate any area that elicited pain SKIN: Skin is clear with no lesions or rashes and otherwise unremarkable. NEUROLOGIC: Patient is alert and oriented x3. Cranial nerves II through XII are grossly intact. Motor and sensory are also intact. Normal speech, volume and content. Symmetrical smile. MUSCULOSKELETAL: Normal extremities with adequate strength and full range of motion. No lower extremity swelling or edema. No calf tenderness. LYMPHATICS: No significant lymphadenopathy is noted PSYCHIATRIC: Normal psychiatric evaluation. Limitations: no limitations Course Vital Signs 02/07/19 02/07/19 09:11 11:52 Temperature 98.1 F Pulse Rate 65 60 Respiratory 18 16 Rate Blood Pressure 170/74 149/74 O2 Sat by Pulse 99 97 Oximetry Medical Decision Making - Medical Decision Making Computed tomography scan showed possible pink tightness versus pancreatic mass. I spoke with Dr. Iraheta he agreed to admit the patient. I admitted the patient I wrote admitting orders I consult to GI. - Lab Data Result diagrams: 02/07/19 09:53 02/07/19 09:53 Lab Results 02/07/19 02/07/19 02/07/19 Range/Units 09:34 09:53 09:53 WBC 6.6 (3.8-10.6) k/uL RBC 3.81 (3.80-5.40) m/uL Hgb 10.7 L (11.4-16.0) gm/dL Hct 33.5 L (34.0-46.0) % MCV 87.9 (80.0-100.0) fL MCH 28.2 (25.0-35.0) pg MCHC 32.1 (31.0-37.0) g/dL RDW 14.1 (11.5-15.5) % Plt Count 235 (150-450) k/uL Neutrophils % 60 % Lymphocytes % 28 % Monocytes % 7 % Eosinophils % 2 % Basophils % 0 % Neutrophils # 3.9 (1.3-7.7) k/uL Lymphocytes # 1.9 (1.0-4.8) k/uL Monocytes # 0.5 (0-1.0) k/uL Eosinophils # 0.2 (0-0.7) k/uL Basophils # 0.0 (0-0.2) k/uL Sodium 140 (137-145) mmol/L Potassium 4.3 (3.5-5.1) mmol/L Chloride 102 (98-107) mmol/L Carbon Dioxide 29 (22-30) mmol/L Anion Gap 9 mmol/L BUN 18 H (7-17) mg/dL Creatinine 0.70 (0.52-1.04) mg/dL Est GFR (CKD-EPI)AfAm >90 (>60 ml/min/1.73 sqM) Est GFR (CKD-EPI)NonAf 89 (>60 ml/min/1.73 sqM) Glucose 242 H (74-99) mg/dL Calcium 10.6 H (8.4-10.2) mg/dL Total Bilirubin 0.3 (0.2-1.3) mg/dL AST 25 (14-36) U/L ALT 20 (9-52) U/L Alkaline Phosphatase 88 (38-126) U/L Total Protein 7.7 (6.3-8.2) g/dL Albumin 4.3 (3.5-5.0) g/dL Amylase 59 (30-110) U/L Lipase 322 H (23-300) U/L Urine Color Yellow Urine Appearance Cloudy H (Clear) Urine pH 7.0 (5.0-8.0) Ur Specific [place] 1.021 (1.001-1.035) Urine Protein Negative (Negative) Urine Glucose (UA) 4+ H (Negative) Urine Ketones Negative (Negative) Urine Blood Negative (Negative) Urine Nitrite Negative (Negative) Urine Bilirubin Negative (Negative) Urine Urobilinogen <2.0 (<2.0) mg/dL Ur Leukocyte Esterase Negative (Negative) Urine WBC 2 (0-5) /hpf Ur Squamous Epith Cells <1 (0-4) /hpf Amorphous Sediment Occasional H (None) /hpf Urine Mucus Rare H (None) /hpf Disposition Clinical Impression: Abdominal pain, Pancreatic mass Disposition: ADMITTED IP TO THIS HOSP Referrals: Fernandez Iraheta Jr, [Primary Care Provider] - 1-2 days Time of Disposition: 12:54
[2019-02-07 10:09] LABS: Basophils % (A) 0 %; Eosinophils # (A) 0.2 k/uL (0-0.7); Eosinophils % (A) 2 %; HCT 33.5 % (34.0-46.0); HGB 10.7 gm/dL (11.4-16.0); Lymphocytes # (A) 1.9 k/uL (1.0-4.8); Lymphocytes % (A) 28 %; MCH 28.2 pg (25.0-35.0); MCHC 32.1 g/dL (31.0-37.0); MCV 87.9 fL (80.0-100.0); Mean Platelet Volume 7.7; Monocytes # (A) 0.5 k/uL (0-1.0); Monocytes % (A) 7 %; Neutrophils # (A) 3.9 k/uL (1.3-7.7); Neutrophils % (A) 60 %; Platelet Count 235 k/uL (150-450); RBC 3.81 m/uL (3.80-5.40); RDW 14.1 % (11.5-15.5); WBC 6.6 k/uL (3.8-10.6)
[2019-02-07 10:09] LABS: Amorphous Sediment,Urine Occasional /hpf; Appearance,Urine Cloudy (Clear); Bilirubin,Urine Negative (Negative); Blood,Urine Negative (Negative); Color,Urine Yellow; Glucose,Urine (UA) 4+ (Negative); Ketones,Urine Negative (Negative); Leukocyte Esterase,Urine Negative (Negative); Mucus,Urine Rare /hpf; Nitrite,Urine Negative (Negative); Protein,Urine Negative (Negative); Specific Gravity,Urine 1.021 (1.001-1.035); Squamous Epithelial Cell,Urine <1 /hpf (0-4); Urobilinogen,Urine <2.0 mg/dL (<2.0); WBC,Urine 2 /hpf (0-5)
[2019-02-07 10:19] LABS: ALT 20 U/L (9-52); AST 25 U/L (14-36); African American GFR (CKD) >90 (>60 ml/min/1.73 sqM); Albumin 4.3 g/dL (3.5-5.0); Alkaline Phosphatase 88 U/L (38-126); Amylase 59 U/L (30-110); Anion Gap 9 mmol/L; Blood Urea Nitrogen 18 mg/dL (7-17); Calcium 10.6 mg/dL (8.4-10.2); Carbon Dioxide 29 mmol/L (22-30); Chloride 102 mmol/L (98-107); Glucose 242 mg/dL (74-99); Non-African American GFR(CKD) 89 (>60 ml/min/1.73 sqM); Potassium 4.3 mmol/L (3.5-5.1); Sodium 140 mmol/L (137-145); Total Bilirubin 0.3 mg/dL (0.2-1.3); Total Protein 7.7 g/dL (6.3-8.2)
--- NOTE | 2019-02-07 11:04 | CT ---
EXAMINATION TYPE: CT abdomen pelvis w con DATE OF EXAM: 02/07/2019 COMPARISON: 11/23/2018 HISTORY: Generalized pain with nausea, vomiting and diarrhea CT DLP: 646.6 mGycm Automated exposure control for dose reduction was used. CONTRAST: CT scan of the abdomen pelvis is performed with IV Contrast, patient injected with 100 mL of Isovue 3 00. FINDINGS- LUNG BASES-5 mm nodule posterior segment right lower lobe. Heart is enlarged.. LIVER/GB-surgical clips involving the gallbladder fossa noted. Tiny hepatic granuloma incidentally no saundra. PANCREAS-there is thickening and marked ill-definition of the body of the pancreas. Pancreatitis or p ancreatic neoplasm differential diagnosis. Soft tissue attenuation surrounds the celiac axis and may represent adjacent mass or adenopathy. SPLEEN-splenic granuloma noted there is an accessory spleen. ADRENALS- No gross abnormality is seen. KIDNEYS/BLADDER- no hydronephrosis nephrolithiasis or renal mass. BOWEL-bowel gas pattern is nonspecific. There is mild prominence of the gastric wall. Correlate for g astritis. LYMPH NODES- No greater than 1cm abdominal or pelvic lymph nodes areappreciated. OSSEOUS STRUCTURES-surgical change involving the vertebral column with multilevel hypertrophic and de generative disc disease. Grade 1 anterolisthesis L4 on L5. OTHER- atherosclerotic change of the aorta with no evidence of aneurysm. IMPRESSION- 1. As noted on the recent previous CT there is enlargement and abnormal attenuation involving the bod y of the pancreas. Differential diagnosis includes pancreatitis as well as pancreatic malignancy. 2. Thickening of the wall the stomach can be associated with gastritis correlate clinically.
[2019-02-07] MEDS ORDERED: HYDROmorphone 0.5 MG/0.5 ML SYRINGE IVP STA (11:48)
[2019-02-07] MEDS ORDERED: traMADol 50 MG TAB PO PRN (14:52)
--- NOTE | 2019-02-07 15:09 | P.CONS ---
History of Present Illness - Reason for Consult Consult date: 02/07/19 Pancreatic mass Requesting physician: Fernandez Iraheta Jr - Chief Complaint Abdominal pain - History of Present Illness 68-year-old female history of cholecystectomy, diabetes mellitus, GERD, admitted with persistent abdominal pain constipation unintentional weight loss for at least 9 months but has exacerbated 3 months. Pain is described as very generalized sharp radiating along midline sometimes in the upper abdomen over to the left flank region. White count 6.6. Hemoglobin 10.7. Platelet 235. CEA 125 111.9. Lipase 322. Amylase 59. LFTs normal. Calcium 10.6. Glucose 242. History of known pancreatic or liver disorders. No history of alcoholism. No history of pancreatic surgery. Noncontrast CT abdomen May 2018 reported moderate stool burden lack of IV contrast decreased the sensitivity of the exam. No acute inflammatory process identified in the upper abdomen. Noncontrast CT abdomen October 2018 reported slight fullness to the body of the sin creas questionable ill-defined peripancreatic fat. EGD colonoscopy October 2018 upper endoscopy small gastric polyps. Colonoscopy normal limits. Patient reports undergoing an MRI of the pancreas December 2018 at [facility] and was told it was within normal limits. Contrast CT abdomen today reported thickening and marked ill-definition of the body of the pancreas. Pancreatic neoplasm or pancreatitis within the differential. Soft tissue attenuation surrounding the celiac axis and may represent adjacent mass or adenopathy. 5 mm posterior segment right lower lobe lung nodule. Transvaginal ultrasound December 2018 no suspicious lesions. Review of Systems Constitutional: Denies fever, chills, sweats, unintentional weight loss. HEENT: Negative for migraines, blurred vision or loss, earaches, drainage, tinnitus, oral mucosal lesions, dysphagia, or odynophagia. CARDIAC: Negative for chest pain, arrhythmias, or palpitation. RESPIRATORY: Negative for shortness of breath, hemoptysis, cough, or sputum production. GI: See HPI for pertinent findings. : Negative for hematuria, urgency, frequency, polyuria, or dysuria. GYNc: Negative vaginal discharge. MUSCULOSKELETAL: Negative for muscle aches, swelling, arthritis, and arthralgias. NEUROLOGIC: Negative for stroke or TIA. ENDOCRINE: Negative for thyroid problems. SKIN: Negative for rash or itching. PSYCHIATRIC: Negative history for depression and anxiety Past Medical History Past Medical History: Diabetes Mellitus, GERD/Reflux, Hyperlipidemia, Hypertension, Osteoarthritis (OA) Additional Past Medical History / Comment(s): MIGRAINE HEADACHES, hiatal hernia, weight loss, abd. pain after eating, constipation History of Any Multi-Drug Resistant Organisms: None Reported Past Surgical History: Back Surgery, Bladder Surgery, Cholecystectomy, Hernia Repair, Hysterectomy, Orthopedic Surgery, Tubal Ligation Additional Past Surgical History / Comment(s): NECK FUSION X2, LEFT SHOULDER,UMBILICAL HERNIA. Surgery for ectopic . back surg. x2 Past Anesthesia/Blood Transfusion Reactions: No Reported Reaction Past Psychological History: No Psychological Hx Reported Smoking Status: Former smoker Past Alcohol Use History: None Reported Past Drug Use History: None Reported - Past Family History Mother Family Medical History: Diabetes Mellitus Brother(s) Family Medical History: Myocardial Infarction ([place]) Sister(s) Family Medical History: Myocardial Infarction ([place]) Medications and Allergies Home Medications Medication Instructions Recorded Confirmed Type Calcium Citrate 250 mg PO DAILY 10/04/17 02/07/19 History Fenofibrate 54 mg PO DAILY 10/04/17 02/07/19 History Losartan [Cozaar] 25 mg PO DAILY 10/04/17 02/07/19 History Multivit/Folic Acid/Vit K1 1 tab PO DAILY 11/20/17 02/07/19 History [One-A-Day Women's 50 Plus Tab] Vitamin E Acetate [Vitamin E] 200 unit PO DAILY 11/20/17 02/07/19 History Insulin Glargine [Lantus] 22 unit SQ HS 02/07/19 02/07/19 History Allergies Allergy/AdvReac Type Severity Reaction Status Date / Time Qvcwwuu-[id number]-Vbz Reductase Allergy Swelling Verified 02/07/19 09:39 Inhibitor Physical Exam Vitals: Vital Signs Temp Pulse Pulse Resp BP BP Pulse Ox 02/07/19 14:15 98.4 F 56 L 15 147/71 99 02/07/19 14:07 98.1 F 60 16 149/74 97 02/07/19 11:52 60 16 149/74 97 02/07/19 09:11 98.1 F 65 18 170/74 99 Intake and Output 02/07/19 02/07/19 02/07/19 06:59 14:59 22:59 Intake Total 500 Balance 500 Intake: Amount of Fluid Infused ( 500 ml) Other: Weight 65.408 kg General appearance: The patient is alert, oriented, in no acute distress. HET: Head is normocephalic and atraumatic. Pupils are equal and reactive. Oropharynx is clear without lesions. Neck: Supple without lymphadenopathy. Trachea midline. Heart: S1 S2. Regular rate and rhythm. Lungs: No crackles or wheezes are heard. Abdomen: Soft, diffuse mild tenderness along midline of the abdomen as well as left upper abdomen extending to the left flank, nondistended with bowel sounds. No peritoneal signs. No palpable organomegaly or masses. Extremities: Normal skin color and turgor. No cyanosis, rash, ulceration, clubbing, or edema. Radial and pedal pulses are 2/4 bilaterally. Neurological: No focal deficits. Strength and sensation are grossly intact. Results CBC & Chem 7: 02/07/19 09:53 02/07/19 09:53 Labs: Abnormal Lab Results - Last 24 Hours (Table) 02/07/19 02/07/19 02/07/19 Range/Units 09:34 09:53 09:53 Hgb 10.7 L (11.4-16.0) gm/dL Hct 33.5 L (34.0-46.0) % BUN 18 H (7-17) mg/dL Glucose 242 H (74-99) mg/dL Calcium 10.6 H (8.4-10.2) mg/dL Lipase 322 H (23-300) U/L Urine Appearance Cloudy H (Clear) Urine Glucose (UA) 4+ H (Negative) Amorphous Sediment Occasional H (None) /hpf Urine Mucus Rare H (None) /hpf CT scan - abdomen: report reviewed (Dr. De Anda) Assessment and Plan (1) Abdominal pain Narrative/Plan: 68-year-old female admitted with persistent abdominal pain and unintentional weight loss at least 6 months duration with current CT of the abdomen reporting abnormality within the pancreatic body underlying neoplasm could not be excluded possible pancreatitis. Current Visit: Yes Status: Acute Code(s): R10.9 - UNSPECIFIED ABDOMINAL PAIN SNOMED Code(s): 94414421 (2) Abnormal CT of the abdomen Current Visit: Yes Status: Acute Code(s): R93.5 - ABN FINDINGS ON DX IMAGING OF ABD REGIONS, INC RETROPERITON SNOMED Code(s): [id number] Plan: 1. Outpatient [facility] office has initiated referral. CA-19-9. GI prophylaxis Supportive measures. IV hydration. Thank you for this kind referral and the opportunity to participate in the care of your patient. This consultation was discussed with Dr. De Anda. The impression and plan of care have been directed as dictated.
[2019-02-07] MEDS: PANTOPRAZOLE 40 MG/10 ML VIAL IVP SCH (16:26)
[2019-02-07] MEDS: SODIUM CHLORIDE 0.9% 1,000 ML IV ONE (16:28)
[2019-02-07 16:49] VITALS: BMI 22.6
[2019-02-07 17:19] LABS: Glucose,Whole Blood 111 mg/dL (75-99)
[2019-02-07] MEDS: INSULIN ASPART (NovoLOG) 100 UNIT/ML VIAL SQ SCH ×2 (17:25→21:11)
[2019-02-07 20:54] LABS: Glucose,Whole Blood 165 mg/dL (75-99)
[2019-02-07] MEDS ORDERED: INSULIN DETEMIR (LEVEMIR) 100 UNIT/ML SYR SQ SCH (21:00)
[2019-02-07] MEDS: ONDANSETRON 4 MG/2 ML VIAL IVP PRN (21:11)
[2019-02-07] MEDS: HYDROmorphone 0.5 MG/0.5 ML SYRINGE IVP PRN (21:12)
[2019-02-08] MEDS: SODIUM CHLORIDE 0.9% 1,000 ML IV ONE (01:45)
[2019-02-08] MEDS: ONDANSETRON 4 MG/2 ML VIAL IVP PRN (03:35)
[2019-02-08] MEDS: HYDROmorphone 0.5 MG/0.5 ML SYRINGE IVP PRN (03:36)
[2019-02-08 07:31] LABS: Glucose,Whole Blood 169 mg/dL (75-99)
[2019-02-08] MEDS: INSULIN ASPART (NovoLOG) 100 UNIT/ML VIAL SQ SCH ×2 (08:25→12:03)
[2019-02-08] MEDS: PANTOPRAZOLE 40 MG/10 ML VIAL IVP SCH (08:25)
[2019-02-08] MEDS ORDERED: LOSARTAN 25 MG TAB PO SCH (09:00)
[2019-02-08 09:12] VITALS: BP 146/77; PULSE 62; RESP 14; TEMP 98.6
[2019-02-08 10:05] LABS: Basophils % (A) 1 %; Eosinophils # (A) 0.1 k/uL (0-0.7); Eosinophils % (A) 2 %; HCT 31.6 % (34.0-46.0); HGB 9.8 gm/dL (11.4-16.0); Hypochromasia Moderate; Lymphocytes # (A) 2.2 k/uL (1.0-4.8); Lymphocytes % (A) 33 %; MCH 28.4 pg (25.0-35.0); MCHC 31.1 g/dL (31.0-37.0); MCV 91.3 fL (80.0-100.0); Mean Platelet Volume 8.1; Monocytes # (A) 0.4 k/uL (0-1.0); Monocytes % (A) 6 %; Neutrophils # (A) 3.7 k/uL (1.3-7.7); Neutrophils % (A) 56 %; Platelet Count 224 k/uL (150-450); RBC 3.46 m/uL (3.80-5.40); RDW 14.4 % (11.5-15.5); WBC 6.6 k/uL (3.8-10.6)
[2019-02-08 10:08] LABS: ALT 18 U/L (9-52); AST 23 U/L (14-36); African American GFR (CKD) >90 (>60 ml/min/1.73 sqM); Albumin 3.7 g/dL (3.5-5.0); Alkaline Phosphatase 71 U/L (38-126); Anion Gap 8 mmol/L; Blood Urea Nitrogen 12 mg/dL (7-17); Calcium 9.7 mg/dL (8.4-10.2); Carbon Dioxide 26 mmol/L (22-30); Chloride 108 mmol/L (98-107); Glucose 119 mg/dL (74-99); Non-African American GFR(CKD) >90 (>60 ml/min/1.73 sqM); Sodium 142 mmol/L (137-145); Total Bilirubin 0.3 mg/dL (0.2-1.3); Total Protein 6.8 g/dL (6.3-8.2)
[2019-02-08 11:35] LABS: Glucose,Whole Blood 125 mg/dL (75-99)
--- NOTE | 2019-02-08 12:13 | P.PN ---
Subjective Progress Note Date: 02/08/19 Principal diagnosis: Abdominal pain 68-year-old female admitted with acute upper abdominal pain with CT imaging reporting abnormality within the body of the pancreas, pancreas versus neoplasm. Feels better this point. Afebrile. CA-19-9 pending. LFTs within normal limits. Objective - Vital Signs Vital signs: Vital Signs Temp 98.6 F 02/08/19 07:00 Pulse 62 02/08/19 07:00 Resp 14 02/08/19 07:00 BP 146/77 02/08/19 07:00 Pulse Ox 99 02/08/19 07:00 Intake & Output 02/07/19 02/08/19 02/08/19 18:59 06:59 18:59 Intake Total 1400 995 296 Balance 1400 995 296 Weight 65.408 kg Intake: Amount of Fluid Infused ( 500 ml) Intake, IV Titration 300 875 Amount Sodium Chloride 0.9% 1, 300 875 000 ml @ 75 mls/hr IV . [id number] ONE Rx#:[id number] Oral 600 120 296 Other: Voiding Method Toilet Toilet # Voids 1 2 - Exam General appearance: The patient is alert, oriented, in no acute distress. HET: Head is normocephalic and atraumatic. Pupils are equal and reactive. Ellen pharynx is clear without lesions. Neck: Supple without lymphadenopathy. Trachea midline. Heart: S1 S2. Regular rate and rhythm. Lungs: No crackles or wheezes are heard. Abdomen: Soft, mildly tender left upper abdomen extending down to left flank, nondistended with bowel sounds. No peritoneal signs. No palpable organomegaly or masses. Extremities: Normal skin color and turgor. No cyanosis, rash, ulceration, clubbing, or edema. Radial and pedal pulses are 2/4 bilaterally. Neurological: No focal deficits. Strength and sensation are grossly intact. - Labs CBC & Chem 7: 02/08/19 09:27 02/08/19 09:27 Labs: Abnormal Lab Results - Last 24 Hours (Table) 02/07/19 02/07/19 02/08/19 Range/Units 17:18 20:53 07:30 RBC (3.80-5.40) m/uL Hgb (11.4-16.0) gm/dL Hct (34.0-46.0) % Chloride (98-107) mmol/L Glucose (74-99) mg/dL POC Glucose (mg/dL) 111 H 165 H 169 H (75-99) mg/dL 02/08/19 02/08/19 02/08/19 Range/Units 09:27 09:27 11:34 RBC 3.46 L (3.80-5.40) m/uL Hgb 9.8 L (11.4-16.0) gm/dL Hct 31.6 L (34.0-46.0) % Chloride 108 H (98-107) mmol/L Glucose 119 H (74-99) mg/dL POC Glucose (mg/dL) 125 H (75-99) mg/dL Assessment and Plan (1) Abdominal pain Narrative/Plan: 68-year-old female admitted with persistent abdominal pain and unintentional weight loss at least 6 months [address] with current [address] of the abdomen reporting abnormality within the pancreatic body underlying neoplasm could not be excluded possible pancreatitis. Current Visit: Yes Status: Acute Code(s): R10.9 - UNSPECIFIED ABDOMINAL PAIN SNOMED Code(s): 74567079 (2) Abnormal CT of the abdomen Current Visit: Yes Status: Acute Code(s): R93.5 - ABN FINDINGS ON DX IMAGING OF ABD REGIONS, INC RETROPERITON SNOMED Code(s): 50105687480622863 Plan: 1. Outpatient EUS referral has been initiated by the GI office. Plan of care discussed with attending Dr. Mendoza. Discharge per medicine. Follow up in GI office in 4-6 weeks. Assessment and plan a care discussed with Dr. De Anda
--- NOTE | 2019-02-08 17:57 | P.HPIM ---
History of Present Illness H&P Date: 02/08/19 Chief Complaint: Abdominal pain History and Physical and Discharge Summary This is a pleasant 68-year-old female with history of known pancreatic / liver disorders cholecystectomy, hernia repair, hypertension, hyperlipidemia , prior nicotine dependence ,gastroesophageal reflux disease, diabetes mellitus, and multiple other medical issues complaining of worsening abdominal pain that originated in May with unintentional weight loss of 25 pounds since July 2018. States in July she weighed 168 pounds and is now down to 143 pounds. Reports worsening sharp umbilical area abdominal pain since this morning radiating to left flank, accompanied by nausea vomiting and diarrhea 1. Denies fever or chills. Denies any chest pain, palpitations or shortness of breath. Denies any lightheadedness dizziness or focal deficits. CT of abdomen without contrast May 2018 reported lack of IV contrast decreases sensitivity, moderate stool burden without pericolonic inflammatory changes within the upper abdomen. Patient reports PCP, Dr. Iraheta had recommended she proceed to [facility] specialist at that time. She reports that she requested to follow-up with GI first. Another CT of abdomen without contrast performed October 2018 reported slight fullness to the body of the pancreas questionable ill-defined, peripancreatic fat. Patient completed EGD and colonoscopy in October 2018; reported as small gastric polyps, essentially normal colonoscopy with no evidence of colitis or colorectal neoplasia. Patient reports recently completed MRI of the pancreas December 2018 at [facility] and was told that it was within normal limits .CT of abdomen and pelvis today, reporting 5 mm nodule right lower lobe, liver with hepatic granuloma, thickening, marked ill definition of the body of the pancreas -pancreatitis or pancreatic neoplasm within the differential,soft tissue attenuation surrounds the celiac axis and possibly representing adjacent mass or adenopathy, splenic granuloma nonspecific bowel gas pattern, mild prominence of the gastric wall possible gastritis, no greater than 1 cm abdominal or pelvic lymph nodes, WBC 6.6, hemoglobin 10.7, platelets 235, CA 199 4372.5 , lipase 322, amylase 59, LFTs normal, calcium 10.6. GI consulted. IV fluids and pain management initiated. Significant clinical improvement. Review of Systems ROS Statement: Those systems with pertinent positive or pertinent negative responses have been documented in the HPI. ROS Other: All systems not noted in ROS Statement are negative. Past Medical History Past Medical History: Diabetes Mellitus, GERD/Reflux, Hyperlipidemia, Hypertension, Osteoarthritis (OA) Additional Past Medical History / Comment(s): MIGRAINE HEADACHES, hiatal hernia, weight loss, abd. pain after eating, constipation History of Any Multi-Drug Resistant Organisms: None Reported Past Surgical History: Back Surgery, Bladder Surgery, Cholecystectomy, Hernia Repair, Hysterectomy, Orthopedic Surgery, Tubal Ligation Additional Past Surgical History / Comment(s): NECK FUSION X2, LEFT SHOULDER,UMBILICAL HERNIA. Surgery for ectopic . back surg. x2 Past Anesthesia/Blood Transfusion Reactions: No Reported Reaction Past Psychological History: No Psychological Hx Reported Smoking Status: Former smoker Past Alcohol Use History: None Reported Past Drug Use History: None Reported - Past Family History Mother Family Medical History: Diabetes Mellitus Brother(s) Family Medical History: Myocardial Infarction (AL) Sister(s) Family Medical History: Myocardial Infarction (AL) Medications and Allergies Home Medications Medication Instructions Recorded Confirmed Type Calcium Citrate 250 mg PO DAILY 10/04/17 02/07/19 History Fenofibrate 54 mg PO DAILY 10/04/17 02/07/19 History Losartan [Cozaar] 25 mg PO DAILY 10/04/17 02/07/19 History Multivit/Folic Acid/Vit K1 1 tab PO DAILY 11/20/17 02/07/19 History [One-A-Day Women's 50 Plus Tab] Vitamin E Acetate [Vitamin E] 200 unit PO DAILY 11/20/17 02/07/19 History Insulin Glargine [Lantus] 22 unit SQ HS 02/07/19 02/07/19 History Acetaminophen with Codeine 1 tab PO Q6H PRN 3 Days #12 tab 02/08/19 Rx [Tylenol w/codeine #3] Pantoprazole [Protonix] 40 mg PO DAILY #30 tablet. 02/08/19 Rx Allergies Allergy/AdvReac Type Severity Reaction Status Date / Time Vcowrdz-Kiw-Ojo Reductase Allergy Swelling Verified 02/07/19 09:39 Inhibitor Physical Exam Vitals: Vital Signs Temp Pulse Pulse Resp BP BP Pulse Ox 02/07/19 14:15 98.4 F 56 L 15 147/71 99 02/07/19 14:07 98.1 F 60 16 149/74 97 02/07/19 11:52 60 16 149/74 97 02/07/19 09:11 98.1 F 65 18 170/74 99 Intake and Output 02/06/19 02/07/19 02/07/19 22:59 06:59 14:59 Intake Total 500 Balance 500 Intake: Amount of Fluid Infused ( 500 ml) Other: Weight 65.408 kg PHYSICAL EXAM: VITAL SIGNS: As above GENERAL: Sitting up in bed, no acute distress HEENT: Conjunctivae normal. eyes normal. NECK: No JVD. No thyroid enlargement. No lymphadenopathy CARDIOVASCULAR: S1, S2 regular. No murmur RESPIRATION: Breath sounds diminished in the bases. No rhonchi or crackles. No bronchial breathing. ABDOMEN: Soft, mild mid periumbilical tenderness extending to left upper quadrant extending to left flank. Nondistended .No guarding. no masses palpable. Bowel sounds heard. LEGS: No edema. no swelling. No clubbing, no cyanosis PSYCHIATRY: Alert and oriented X3, mood and affect normal. NERVOUS SYSTEM: Cranial N 2-12 grossly normal. Moves all 4 limbs. No focal deficits. Strength and sensation grossly intact.. Skin: no lesions, no rash. Results CBC & Chem 7: 02/08/19 09:27 02/08/19 09:27 Labs: Abnormal Lab Results - Last 24 Hours (Table) 02/07/19 02/07/19 02/07/19 Range/Units 09:34 09:53 09:53 Hgb 10.7 L (11.4-16.0) gm/dL Hct 33.5 L (34.0-46.0) % BUN 18 H (7-17) mg/dL Glucose 242 H (74-99) mg/dL Calcium 10.6 H (8.4-10.2) mg/dL Lipase 322 H (23-300) U/L Urine Appearance Cloudy H (Clear) Urine Glucose (UA) 4+ H (Negative) Amorphous Sediment Occasional H (None) /hpf Urine Mucus Rare H (None) /hpf Assessment and Plan Assessment: -Abdominal pain, with abnormal CT of the abdomen reporting possible pancreatic mass, neoplasm. -5 mm nodule right lower lobe - liver with hepatic granuloma -Hypertension -Hyperlipidemia -Diabetes mellitus Plan: Continue current medication regime ,monitoring and symptomatic treatment. Pain management, IV fluid hydration. Advance diet as tolerated. Recommend Adrian Olivier outpatient EUS; GI consulted, evaluated patient with referral initiated. Rajeev Olivier will contact patient for appointment.Significant clinical improvement, pain subsided, Cleared by GI for discharge. Patient is being discharged home in a stable condition with guarded prognosis. Patient to follow-up with PCP in 2-3 days after EUS completed at [facility]. Patient to follow-up with GI in 4 -6 weeks. Discharge Medication List Calcium Citrate 250 mg PO DAILY 10/04/17 [History] Fenofibrate 54 mg PO DAILY 10/04/17 [History] Losartan [Cozaar] 25 mg PO DAILY 10/04/17 [History] Multivit/Folic Acid/Vit K1 [One-A-Day Women's 50 Plus Tab] 1 tab PO DAILY 11/20/17 [History] Vitamin E Acetate [Vitamin E] 200 unit PO DAILY 11/20/17 [History] Insulin Glargine [Lantus] 22 unit SQ HS 02/07/19 [History] Acetaminophen with Codeine [Tylenol w/codeine #3] 1 tab PO Q6H PRN 3 Days #12 tab 02/08/19 [Rx] Pantoprazole [Protonix] 40 mg PO DAILY #30 tablet. 02/08/19 [Rx] The impression and plan of care has been dictated as directed. .: I performed a history and examination of this patient, discussed the same with the dictator. I agree with the dictator's note ,documented as a scribe. Any additional findings or plans will be noted. Time taken: 35 minutes
[2019-02-08 21:43] LABS: Hemoglobin A1C 5.7 % (4.0-6.0)
[2019-02-09] MEDS ORDERED: PANTOPRAZOLE 40 MG TABLET PO SCH (09:00)
== END 2019-02-08 16:09 ==
LOC: EC 08:52 → 4SSUR 12:55
PROVIDERS: ADMIT Family Medicine; ATTEND Family Medicine
DX: R10.10 Upper abdominal pain, unspecified (principal); R10.33 Periumbilical pain; R11.2 Nausea with vomiting, unspecified; R19.7 Diarrhea, unspecified; R63.4 Abnormal weight loss; I10 Essential (primary) hypertension; E78.5 Hyperlipidemia, unspecified; E11.9 Type 2 diabetes mellitus without complications; K21.9 Gastro-esophageal reflux disease without esophagitis; K75.3 Granulomatous hepatitis, not elsewhere classified; R94.8 Abnormal results of function studies of other organs and systems; K59.00 Constipation, unspecified; G43.909 Migraine, unspecified, not intractable, without status migrainosus; R91.1 Solitary pulmonary nodule; M19.90 Unspecified osteoarthritis, unspecified site; Z88.8 Allergy status to other drugs, medicaments and biological substances; Z79.899 Other long term (current) drug therapy; Z79.4 Long term (current) use of insulin; Z87.891 Personal history of nicotine dependence; Z90.49 Acquired absence of other specified parts of digestive tract; Z98.1 Arthrodesis status; Z82.49 Family history of ischemic heart disease and other diseases of the circulatory system; Z83.3 Family history of diabetes mellitus
CPT/HCPCS: 96376 ×2; 96375 ×2; 96361; 96374; 99285; 36415; 80053 ×2; 82150; 83690 ×2; 85025 ×2; 81001; 86301; 83036; 74177; G0378 ×2; J2405 ×2; C9113 ×2; J1170 ×2; Q9967

== ENCOUNTER → 2019-04-05 | Outpatient (CLI) | payer MEDICARE ==
--- NOTE | 2019-04-05 14:36 | US ---
EXAMINATION TYPE: US transvaginal DATE OF EXAM: 04/05/2019 COMPARISON: 01/23/2019 CLINICAL HISTORY: N83.201 right ovarian cyst. Partial hysterectomy TECHNIQUE: Transvaginal (TV). Date of LMP: unknown EXAM MEASUREMENTS: Uterus: Surgically absent Endometrial Stripe: Surgically absent Right Ovary: unable to visualize Left Ovary: unable to visualize 1. Uterus: Surgically absent 2. Endometrium: Surgically absent 3. Right Ovary: Obscured by overlying bowel gas 4. Left Ovary: Obscured by overlying bowel gas 5. Bilateral Adnexa: appears wnl IMPRESSION: Uterus is surgically absent. The ovaries are not identified likely partially due to atrop hy and partially due to overlying bowel gas. No solid or cystic masses seen on the current exam.
== END | disposition home or self-care (01) ==
LOC: RADUSWWP 13:44
PROVIDERS: ATTEND Obstetrics & Gynecology
DX: N83.201 Unspecified ovarian cyst, right side (principal); Z90.710 Acquired absence of both cervix and uterus
CPT/HCPCS: 76830

== ENCOUNTER → 2020-01-07 | Outpatient (CLI) | payer MEDICARE ==
[2020-01-07 14:04] LABS: African American GFR (CKD) >90 (>60 ml/min/1.73 sqM); Blood Urea Nitrogen 12 mg/dL (7-17); Non-African American GFR(CKD) >90 (>60 ml/min/1.73 sqM)
--- NOTE | 2020-01-07 15:49 | CT ---
EXAMINATION TYPE: CT abdomen w con DATE OF EXAM: 01/07/2020 COMPARISON: 02/07/2019 HISTORY: 69-year-old female Generalized abdominal pain, stomach pains TECHNIQUE: Contiguous axial scanning of the abdomen following administration of 100 ml Isovue 300 IV contrast. Delayed images through the kidneys and coronal/sagittal reconstructions performed. CT DLP: 647.7 mGycm Automated exposure control for dose reduction was used. FINDINGS: Mild generalized anasarca change, new from prior exam. Heart normal size without pericardial effusion. Lung bases clear without pleural effusion. Calcified granuloma right hepatic dome. New suspicious hypodense lesion left liver lobe measuring 2.0 cm and in the right liver lobe measurin g 1.4 cm. There is a stenosis involving the lower portal vein down to 3 mm no improvement from 02/07/2019. Soft tissue density along the upper retroperitoneum with some surgical clips. There seems to have bee n interval resection of the pancreatic body and tail. Interval splenectomy. Small-caliber celiac axis is visualized. The proper hepatic artery branch is not well seen and there may be prominent collateralization from SMA pancreaticoduodenal branches. Gallbladder surgically absent. Adrenal glands and kidneys appear within normal limits. No dilated small bowel, free fluid, or free air. Large stool burden. No definite suspicious mesenteric or retroperitoneal lymphadenopathy. Moderate apical scarring calcifications infrarenal abdominal aorta and visualized common iliac arteri es. Pelvis is not imaged. Bones: Degenerative changes at the SI joints. Status post L4-L5 posterior fusion with a fixed grade 1 anterolisthesis here. Moderate degenerative disc disease lower thoracic spine. IMPRESSION: 1. INTERVAL RESECTION OF THE PANCREATIC BODY AND TAIL. THERE IS SOFT TISSUE DENSITY IN THE PORTAHEPAT IC AND PERICELIAC REGION, PROBABLY POSTSURGICAL CHANGE. FOLLOW-UP IS RECOMMENDED TO REASSESS THIS ARE A. SATISFACTORY APPEARANCE TO THE RESIDUAL PANCREATIC HEAD. 2. SEVERE FOCAL STENOSIS LOWER PORTAL VEIN WITH THE PATENT LUMEN REDUCED DOWN TO 3 MM. THIS IS IMPROV ED FROM THE PRIOR 02/07/2019 EXAM. 3. NOW DIMINUTIVE APPEARANCE TO THE CELIAC AXIS. THE PROPER HEPATIC ARTERY BRANCH IS NOT WELL VISUALI ZED. THERE MAY BE PROMINENT COLLATERALIZATION FROM SMA PANCREATICODUODENAL BRANCHES. 4. NOTE TWO NEW HYPODENSE LESIONS IN THE LIVER MEASURING UP TO 2.0 CM. UNABLE TO EXCLUDE NEW HEPATIC METASTASES. 5. LARGE STOOL BURDEN. INTERVAL SPLENECTOMY.
== END | disposition home or self-care (01) ==
LOC: RADCTMAIN 13:13
PROVIDERS: ATTEND Internal Medicine
DX: K76.89 Other specified diseases of liver (principal); I87.8 Other specified disorders of veins; Z90.81 Acquired absence of spleen; Z90.410 Acquired total absence of pancreas
CPT/HCPCS: 82565; 84520; 74160; 36415; Q9967

== ENCOUNTER 2020-02-10 08:46 | Day surgery (SDC) | payer MEDICARE ==
[2020-02-10 09:29] VITALS: RESP 16; TEMP 98.7
[2020-02-10] MEDS ORDERED: ALPRAZolam 0.25 MG TAB PO STA (09:33)
[2020-02-10 09:47] LABS: Mean Platelet Volume 7.8; Platelet Count 323 k/uL (150-450)
[2020-02-10 09:50] LABS: Prothrombin Time 10.7 sec (9.0-12.0)
[2020-02-10] MEDS ORDERED: HYDROmorphone 0.5 MG/0.5 ML SYRINGE IVP STA (10:24)
--- NOTE | 2020-02-10 10:51 | CT ---
EXAMINATION TYPE: CT biopsy liver DATE OF EXAM: 02/10/2020 COMPARISON: 01/07/2020 HISTORY: Liver mass and pancreatic mass CT DLP: 909mGycm The procedure was explained to the patient. The risks, complications, benefits, and alternatives wer e discussed and any questions were answered. Informed consent was obtained. Patient was placed supi ne on the CT table and prepped and draped in the usual sterile fashion. All elements of maximal barrier and sterile technique utilized. Utilizing CT guidance, an 18 gauge core biopsy needle access into the right lobe of the liver was ac hieved and a single 18 gauge core sample was obtained. The patient was stable throughout the procedu re and remained stable upon discharge. IMPRESSION: 1. Successful 18 gauge core biopsy of the liver. Note is made the mass appears necrotic which may low er diagnostic yield.
[2020-02-10 14:56] VITALS: BP 132/62; PULSE 63
== END 2020-02-10 14:37 | disposition home or self-care (01) ==
LOC: RADPROMAIN 08:46
PROVIDERS: ATTEND Internal Medicine Hematology & Oncology
DX: C78.7 Secondary malignant neoplasm of liver and intrahepatic bile duct (principal)
CPT/HCPCS: 82947; 85049; 85610; 88342; 88307; 88341; 96374; 36415; 47000; 77012; J1170

== ENCOUNTER → 2020-03-06 | Outpatient (CLI) | payer MEDICARE ==
--- NOTE | 2020-03-06 14:30 | US ---
EXAMINATION TYPE: US carotid duplex BILAT DATE OF EXAM: 03/06/2020 COMPARISON: NONE CLINICAL HISTORY: F03.90 Dementia. EXAM MEASUREMENTS: RIGHT: Peak Systolic Velocity (PSV) cm/sec ----- Right CCA: 102.2 ----- Right ICA: 167.4 ----- Right ECA: 144.0 ICA/CCA ratio: 1.6 RIGHT: End Diastole cm/sec ----- Right CCA: 23.9 ----- Right ICA: 28.2 ----- Right ECA: 10.0 LEFT: Peak Systolic Velocity (PSV) cm/sec ----- Left CCA: 56.6 ----- Left ICA: 129.2 ----- Left ECA: 291.7 ICA/CCA ratio: 2.3 LEFT: End Diastole cm/sec ----- Left CCA: 12.1 ----- Left ICA: 25.2 ----- Left ECA: 24.2 VERTEBRALS (direction of flow): Right Vertebral: Antegrade Left Vertebral: Antegrade Rhythm: Normal Mild to moderate atherosclerotic changes with slight velocity increase seen on left. Grayscale, color Doppler, spectral Doppler imaging performed of the carotid arteries. Waveform analys is does not show significant stenosis of the proximal internal carotid arteries, elevated velocity ma y be technical within the proximal right internal carotid artery which shows a deep appearance, poor angle signal to the probe. IMPRESSION: No hemodynamic significant stenosis the proximal internal carotid arteries by Doppler cr iteria, an indirect measurement of carotid stenosis with technical limitations as described. CTA or M RA could be confirmatory. Criteria for Assigning % of Stenosis / Diameter reduction (Estimation based on the indirect measurements of the internal carotid artery velocities (ICA PSV). 1. Normal (no stenosis)=ICA PSV < 125 cm/s: ratio < 2.0: ICA EDV<40 cm/s. 2. Less than 50% stenosis=ICA PSV < 125 cm/s: ratio < 2.0: ICA EDV<40 cm/s. 3. 50 to 69% stenosis=ICA PSV of 125 to 230 cm/s: ration 2.0 ? 4.0: ICA EDV 40-100 cm/s. 4. Greater than 70% stenosis to near occlusion= ICA PSV > 230 cm/s: ratio > 4.0: ICA EDV > 100 cm/s. 5. Near occlusion= ICA PSV velocities may be low or undetectable: variable ratio and ICA EDV. 6. Total occlusion=unable to detect flow.
--- NOTE | 2020-03-06 16:31 | CT ---
EXAMINATION TYPE: CT brain wo con DATE OF EXAM: 03/06/2020 HISTORY: Dementia. CT DLP: 1004.1 mGycm. Automated Exposure Control for Dose Reduction was Utilized. TECHNIQUE: CT scan of the head is performed without contrast. COMPARISON: None FINDINGS: There is no acute intracranial hemorrhage, midline shift, or mass effect identified. Generalized volu me loss. Patchy periventricular white matter hypodensities likely sequela of chronic microvascular is chemic change. The ventricles, sulci, and cisterns are normal in size and configuration. No extra-axial fluid collection. Bones and extracranial soft tissues are intact. The globes are gross ly symmetric. Visualized sinuses and mastoid air cells are clear. IMPRESSION: 1. No acute intracranial hemorrhage, midline shift, or mass effect. 2. Generalized volume loss and periventricular white matter hypodensities likely sequela of chronic m icrovascular ischemic change.
== END | disposition home or self-care (01) ==
LOC: RADCTMAIN 12:43
PROVIDERS: ATTEND Internal Medicine
DX: F03.90 Unspecified dementia, unspecified severity, without behavioral disturbance, psychotic disturbance, mood disturbance, and anxiety (principal)
CPT/HCPCS: 70450; 93880

== ENCOUNTER 2020-03-26 15:59 | Inpatient (IN) | payer MEDICARE ==
[2020-03-26] MEDS ORDERED: HYDROmorphone 0.5 MG/0.5 ML SYRINGE IVP STA (16:38)
[2020-03-26] MEDS ORDERED: SODIUM CHLORIDE 0.9% 500 ML 500 ML IV STA (16:38)
--- NOTE | 2020-03-26 17:28 | ED ---
General Adult HPI - General Source: patient, RN notes reviewed Mode of arrival: wheelchair Limitations: no limitations <Hira Meeks - Last Filed: 03/26/20 18:28> <Alen Pruitt - Last Filed: 03/26/20 19:52> - General Chief complaint: Abdominal Pain Stated complaint: abd pain Time Seen by Provider: 03/26/20 16:29 - History of Present Illness Initial comments: 69-year-old female with a past medical history of pancreatic cancer with resection followed by liver cancer presents to the emergency room for nausea vomiting diarrhea. Patient states she received her third round of chemo yesterday. She states that after chemo she always gets nausea vomiting and diarrhea. She reports she also has abdominal pain with this. Patient saw her doctor who thought she was dehydrated and needed fluids. She was sent to the emergency room. Patient has not had fevers at home.Patient has no other complaints at this time including shortness of breath, chest pain, nausea or vomiting, headache, or visual changes. (Hira Meeks) - Related Data Home Medications Medication Instructions Recorded Confirmed Fenofibrate 54 mg PO DAILY 10/04/17 03/26/20 Losartan [Cozaar] 25 mg PO DAILY 10/04/17 03/26/20 Apixaban [Eliquis] 5 mg PO BID 01/31/20 03/26/20 Dicyclomine [Bentyl] 20 mg PO QID 03/26/20 03/26/20 Fluconazole [Diflucan] 150 mg PO ONCE 03/26/20 03/26/20 Latanoprost/Pf [Latanoprost 0.005% 1 drop BOTH EYES HS 03/26/20 03/26/20 Eye Drop] Lidocaine-Prilocaine Cream [Emla 1 applic TOPICAL DAILY PRN 03/26/20 03/26/20 Cream 2.5%/2.5%] Lipase/Protease/Amylase [Jose Francisco Gibbs 12,000 units PO DAILY PRN 03/26/20 03/26/20 6,000 Units Capsule] Lipase/Protease/Amylase [Jose Francisco Gibsb 18,000 units PO AC-TID 03/26/20 03/26/20 6,000 Units Capsule] Magic Mouthwash 15 ml PO QID PRN 03/26/20 03/26/20 Megestrol [Megace] 400 mg PO BID 03/26/20 03/26/20 Metoprolol Tartrate [Lopressor] 25 mg PO BID 03/26/20 03/26/20 Mirtazapine 7.5 mg PO HS 03/26/20 03/26/20 Ondansetron HCl [Zofran] 4 mg PO Q6H PRN 03/26/20 03/26/20 Pioglitazone [Actos] 15 mg PO DAILY 03/26/20 03/26/20 Sucralfate [Carafate] 1 gm PO ACHS 03/26/20 03/26/20 oxyCODONE HCL [OxyIR] 5 mg PO TID 03/26/20 03/26/20 Previous Rx's Medication Instructions Recorded Pantoprazole [Protonix] 40 mg PO DAILY #30 tablet. 02/08/19 Allergies Allergy/AdvReac Type Severity Reaction Status Date / Time lisinopril Allergy Unknown Verified 03/26/20 19:29 Zamnkps-Chz-Fij Reductase Allergy Swelling Verified 03/26/20 19:29 Inhibitor Review of Systems ROS Other: All systems not noted in ROS Statement are negative. <Hira Meeks P - Last Filed: 03/26/20 18:28> ROS Other: All systems not noted in ROS Statement are negative. <Alen Pruitt - Last Filed: 03/26/20 19:52> ROS Statement: Those systems with pertinent positive or pertinent negative responses have been documented in the HPI. Past Medical History Past Medical History: Cancer, Diabetes Mellitus, GERD/Reflux, Hyperlipidemia, Hypertension, Osteoarthritis (OA) Additional Past Medical History / Comment(s): MIGRAINE HEADACHES, hiatal hernia, weight loss, abd. pain after eating, constipation, cancer pancreatic History of Any Multi-Drug Resistant Organisms: None Reported Past Surgical History: Back Surgery, Bladder Surgery, Cholecystectomy, Hernia Repair, Hysterectomy, Orthopedic Surgery, Tubal Ligation Additional Past Surgical History / Comment(s): NECK FUSION X2, LEFT SHOULDER,UMBILICAL HERNIA. Surgery for ectopic . back surg. x2, pancreatic surgery 2019. Past Anesthesia/Blood Transfusion Reactions: No Reported Reaction Past Psychological History: No Psychological Hx Reported Smoking Status: Former smoker Past Alcohol Use History: None Reported Past Drug Use History: None Reported - Past Family History Mother Family Medical History: Diabetes Mellitus Brother(s) Family Medical History: Myocardial Infarction ([place]) Sister(s) Family Medical History: Myocardial Infarction ([place]) <Hira Meeks - Last Filed: 03/26/20 18:28> General Exam Limitations: no limitations General appearance: alert, in no apparent distress Head exam: Present: atraumatic, normocephalic, normal inspection Eye exam: Present: normal appearance, PERRL, EOMI. Absent: scleral icterus, conjunctival injection, periorbital swelling ENT exam: Present: normal exam, mucous membranes moist Neck exam: Present: normal inspection, full ROM. Absent: tenderness, meningismus Respiratory exam: Present: normal lung sounds bilaterally. Absent: respiratory distress, wheezes, rales, rhonchi, stridor Cardiovascular Exam: Present: regular rate, normal rhythm, normal heart sounds. Absent: systolic murmur, diastolic murmur, rubs, gallop, clicks GI/Abdominal exam: Present: soft, tenderness (generalized abdominal tenderness), normal bowel sounds. Absent: distended, guarding, rebound, rigid Neurological exam: Present: alert <Hira Meeks - Last Filed: 03/26/20 18:28> Course <Hira Meeks - Last Filed: 03/26/20 18:28> Vital Signs 03/26/20 03/26/20 16:14 18:43 Temperature 100.7 F H Pulse Rate 66 67 Respiratory 20 18 Rate Blood Pressure 126/65 145/79 O2 Sat by Pulse 99 100 Oximetry - Reevaluation(s) Reevaluation #1: 03/26/20 18:27 Dr. Velez did call the emergency room to mention to me that patient did have a positive E. coli urine culture 2 days ago (Hira Meeks) Medical Decision Making - Lab Data Result diagrams: 03/26/20 16:55 03/26/20 16:55 <Hira Meeks - Last Filed: 03/26/20 18:28> - Lab Data Result diagrams: 03/26/20 16:55 03/26/20 16:55 <Alen Pruitt - Last Filed: 03/26/20 19:52> - Medical Decision Making Chest x-ray shows no acute process. (Jeanna,Hira P) CT showing enlarged hepatic lesion, constipation, no specific infectious findings. Patient is pancytopenic although her absolute neutrophil count is 1.5. She started on broad-spectrum antibiotics. According to the patient's primary care physician she did have a positive urine culture. She is covered with vancomycin and Zosyn. I discussed case with Dr. Ocampo who will admit. (Alen Pruitt) - Lab Data Lab Results 03/26/20 03/26/20 03/26/20 Range/Units 16:55 16:55 16:55 WBC 2.3 L (3.8-10.6) k/uL RBC 3.05 L (3.80-5.40) m/uL Hgb 9.2 L (11.4-16.0) gm/dL Hct 29.0 L (34.0-46.0) % MCV 95.1 (80.0-100.0) fL MCH 30.1 (25.0-35.0) pg MCHC 31.7 (31.0-37.0) g/dL RDW 13.8 (11.5-15.5) % Plt Count 127 L D (150-450) k/uL Neutrophils % 65 % Lymphocytes % 27 % Monocytes % 6 % Eosinophils % 0 % Basophils % 0 % Neutrophils # 1.5 (1.3-7.7) k/uL Lymphocytes # 0.6 L (1.0-4.8) k/uL Monocytes # 0.1 (0-1.0) k/uL Eosinophils # 0.0 (0-0.7) k/uL Basophils # 0.0 (0-0.2) k/uL Sodium 134 L (137-145) mmol/L Potassium 4.9 (3.5-5.1) mmol/L Chloride 102 (98-107) mmol/L Carbon Dioxide 21 L (22-30) mmol/L Anion Gap 11 mmol/L BUN 16 (7-17) mg/dL Creatinine 0.73 (0.52-1.04) mg/dL Est GFR (CKD-EPI)AfAm >90 (>60 ml/min/1.73 sqM) Est GFR (CKD-EPI)NonAf 85 (>60 ml/min/1.73 sqM) Glucose 253 H (74-99) mg/dL Plasma Lactic Acid Zeyad (0.7-2.0) mmol/L Calcium 9.7 (8.4-10.2) mg/dL Total Bilirubin 0.6 (0.2-1.3) mg/dL AST 28 (14-36) U/L ALT 14 (4-34) U/L Alkaline Phosphatase 78 (38-126) U/L Total Protein 7.8 (6.3-8.2) g/dL Albumin 4.5 (3.5-5.0) g/dL Amylase 46 (30-110) U/L Lipase 16 L (23-300) U/L Urine Color Yellow Urine Appearance Clear (Clear) Urine pH 5.5 (5.0-8.0) Ur Specific [place] 1.018 (1.001-1.035) Urine Protein Trace H (Negative) Urine Glucose (UA) 4+ H (Negative) Urine Ketones Negative (Negative) Urine Blood Negative (Negative) Urine Nitrite Negative (Negative) Urine Bilirubin Negative (Negative) Urine Urobilinogen <2.0 (<2.0) mg/dL Ur Leukocyte Esterase Negative (Negative) 03/26/20 Range/Units 16:55 WBC (3.8-10.6) k/uL RBC (3.80-5.40) m/uL Hgb (11.4-16.0) gm/dL Hct (34.0-46.0) % MCV (80.0-100.0) fL MCH (25.0-35.0) pg MCHC (31.0-37.0) g/dL RDW (11.5-15.5) % Plt Count (150-450) k/uL Neutrophils % % Lymphocytes % % Monocytes % % Eosinophils % % Basophils % % Neutrophils # (1.3-7.7) k/uL Lymphocytes # (1.0-4.8) k/uL Monocytes # (0-1.0) k/uL Eosinophils # (0-0.7) k/uL Basophils # (0-0.2) k/uL Sodium (137-145) mmol/L Potassium (3.5-5.1) mmol/L Chloride (98-107) mmol/L Carbon Dioxide (22-30) mmol/L Anion Gap mmol/L BUN (7-17) mg/dL Creatinine (0.52-1.04) mg/dL Est GFR (CKD-EPI)AfAm (>60 ml/min/1.73 sqM) Est GFR (CKD-EPI)NonAf (>60 ml/min/1.73 sqM) Glucose (74-99) mg/dL Plasma Lactic Acid Zeyad 3.3 H* (0.7-2.0) mmol/L Calcium (8.4-10.2) mg/dL Total Bilirubin (0.2-1.3) mg/dL AST (14-36) U/L ALT (4-34) U/L Alkaline Phosphatase (38-126) U/L Total Protein (6.3-8.2) g/dL Albumin (3.5-5.0) g/dL Amylase (30-110) U/L Lipase (23-300) U/L Urine Color Urine Appearance (Clear) Urine pH (5.0-8.0) Ur Specific [place] (1.001-1.035) Urine Protein (Negative) Urine Glucose (UA) (Negative) Urine Ketones (Negative) Urine Blood (Negative) Urine Nitrite (Negative) Urine Bilirubin (Negative) Urine Urobilinogen (<2.0) mg/dL Ur Leukocyte Esterase (Negative) Disposition <Hira Meeks P - Last Filed: 03/26/20 18:28> Is patient prescribed a controlled substance at d/c from ED?: No Decision to Admit Reason: Admit from EC Decision Date: 03/26/20 Decision Time: 19:52 <Alen Pruitt - Last Filed: 03/26/20 19:52> Clinical Impression: Abdominal pain, Liver mass, Pancytopenia Disposition: ADMITTED IP TO THIS HOSP Condition: Stable Referrals: Glenny Velez MD [Primary Care Provider] - 1-2 days
[2020-03-26 17:38] LABS: ALT 14 U/L (4-34); AST 28 U/L (14-36); African American GFR (CKD) >90 (>60 ml/min/1.73 sqM); Albumin 4.5 g/dL (3.5-5.0); Alkaline Phosphatase 78 U/L (38-126); Amylase 46 U/L (30-110); Anion Gap 11 mmol/L; Blood Urea Nitrogen 16 mg/dL (7-17); Calcium 9.7 mg/dL (8.4-10.2); Carbon Dioxide 21 mmol/L (22-30); Chloride 102 mmol/L (98-107); Glucose 253 mg/dL (74-99); Lipase 16 U/L (23-300); Non-African American GFR(CKD) 85 (>60 ml/min/1.73 sqM); Potassium 4.9 mmol/L (3.5-5.1); Sodium 134 mmol/L (137-145); Total Bilirubin 0.6 mg/dL (0.2-1.3); Total Protein 7.8 g/dL (6.3-8.2)
[2020-03-26 17:44] LABS: Basophils % (A) 0 %; Eosinophils % (A) 0 %; HGB 9.2 gm/dL (11.4-16.0); Lymphocytes # (A) 0.6 k/uL (1.0-4.8); Lymphocytes % (A) 27 %; MCH 30.1 pg (25.0-35.0); MCHC 31.7 g/dL (31.0-37.0); MCV 95.1 fL (80.0-100.0); Monocytes # (A) 0.1 k/uL (0-1.0); Monocytes % (A) 6 %; Neutrophils # (A) 1.5 k/uL (1.3-7.7); Neutrophils % (A) 65 %; RBC 3.05 m/uL (3.80-5.40); RDW 13.8 % (11.5-15.5); WBC 2.3 k/uL (3.8-10.6)
[2020-03-26 17:47] LABS: Platelet Count 127 k/uL (150-450)
--- NOTE | 2020-03-26 18:00 | XR ---
EXAMINATION: XR chest 2V DATE AND TIME: 03/26/2020 5:28 PM CLINICAL INDICATION: PHH; abdominal pain, nausea TECHNIQUE: PA and lateral COMPARISON: 10/28/2015 FINDINGS: Right IJ portacatheter tip superimposed over the cavoatrial junction. The lungs are clear. The pleural spaces are negative. The cardiac silhouette is not enlarged. The remainder of the mediastinal silhouette is unremarkable. The skeletal structures and soft tissues are negative for acute findings. IMPRESSION: NO ACUTE PROCESS.
[2020-03-26 18:12] LABS: Appearance,Urine Clear (Clear); Bilirubin,Urine Negative (Negative); Blood,Urine Negative (Negative); Color,Urine Yellow; Glucose,Urine (UA) 4+ (Negative); Ketones,Urine Negative (Negative); Leukocyte Esterase,Urine Negative (Negative); Nitrite,Urine Negative (Negative); PH, Urine 5.5 (5.0-8.0); Protein,Urine Trace (Negative); Specific Gravity,Urine 1.018 (1.001-1.035); Urobilinogen,Urine <2.0 mg/dL (<2.0)
[2020-03-26] MEDS ORDERED: VANCOMYCIN IV PER PHARMACY 1 EACH MISC MISCELLANE PRN (18:13)
[2020-03-26] MEDS ORDERED: PIPERACILLIN-TAZOBACTAM 3.375 GM in SODIUM CHLORIDE 0.9% 100 ML IVPB STA (18:13)
[2020-03-26] MEDS ORDERED: VANCOMYCIN 750 MG in SODIUM CHLORIDE 0.9% 250 ML IVPB STA (18:21)
--- NOTE | 2020-03-26 19:37 | CT ---
EXAMINATION TYPE: CT abdomen pelvis w con DATE OF EXAM: 03/26/2020 COMPARISON: 01/07/2020 CT HISTORY: ABDOMINAL PAIN CT DLP: 500.2 mGycm Automated exposure control for dose reduction was used. TECHNIQUE: Helical acquisition of images was performed from the lung bases through the pelvis. CONTRAST: Performed without Oral Contrast and with IV Contrast, patient injected with 100 mL of Isovu e 300. FINDINGS: LUNG BASES: No acute findings. No pulmonary nodules. LIVER/GB: The previously seen right hepatic lobe 1.4 cm lesion now measures 3.7 x 3.0 cm (axial image ). Previously seen left hepatic lobe lesion is similar in appearance. No definite new CT liver lesions. PANCREAS: Post procedural architectural distortion is redemonstrated. On the current study scanned th e stomach is not particularly distended. Oral contrast was not utilized. SPLEEN: No significant abnormality is seen. ADRENALS: No significant abnormality is seen. KIDNEYS: No significant abnormality is seen. PERITONEAL CAVITY: No pneumoperitoneum or peritoneal fluid. RETROPERITONEAL ADENOPATHY: None visualized REPRODUCTIVE ORGANS: No significant abnormality is seen URINARY BLADDER: No significant abnormality is seen. PELVIC ADENOPATHY: None visualized. OSSEOUS STRUCTURES: No significant abnormality is seen. BOWEL: There is no bowel obstruction. There is prominent fecal material seen throughout the colon. T here is a gas distended loop of bowel deep in the midline pelvis, just caudal to the sacral promontor y. Would suggest consideration of follow-up oral contrast with [address] oral contrast CT scanning of the abdomen and pelvis to delineate the bowel. OTHER: No acute vascular findings. IMPRESSION: 1. PROMINENT ENLARGEMENT OF THE RIGHT HEPATIC LESION SINCE THE 01/20/2020 CT. 2. FINDINGS SUGGEST CONSTIPATION; NONSPECIFIC GAS DISTENDED BOWEL LOOP IN THE PELVIS DISCUSSED.
[2020-03-26] MEDS ORDERED: NALOXONE 0.4 MG/ML 1 ML VIAL IV PRN (19:49)
[2020-03-26] MEDS ORDERED: ACETAMINOPHEN TAB 325 MG TAB PO PRN (19:49)
[2020-03-26] MEDS: SODIUM CHLORIDE 0.9% 1,000 ML IV SCH (23:08)
[2020-03-26 23:10] LABS: Glucose,Whole Blood 202 mg/dL (75-99)
[2020-03-27] MEDS: PIPERACILLIN-TAZOBACTAM 3.375 GM in SODIUM CHLORIDE 0.9% 100 ML IVPB SCH ×3 (00:11→17:48)
[2020-03-27] MEDS: HYDROmorphone 0.5 MG/0.5 ML SYRINGE IVP PRN ×5 (00:21→22:28)
[2020-03-27 07:23] LABS: Glucose,Whole Blood 137 mg/dL (75-99)
[2020-03-27] MEDS ORDERED: LIPASE 5,000/PROTEASE 17,000/AMYLASE 24,000 PO PRN (07:43)
[2020-03-27] MEDS ORDERED: ONDANSETRON 4 MG TAB PO PRN (07:43)
[2020-03-27] MEDS ORDERED: MAGIC MOUTHWASH PO PRN (07:43)
[2020-03-27] MEDS: VANCOMYCIN 750 MG in SODIUM CHLORIDE 0.9% 250 ML IVPB SCH ×2 (08:45→18:18)
[2020-03-27] MEDS: LIPASE 5,000/PROTEASE 17,000/AMYLASE 24,000 PO SCH ×3 (08:48→17:42)
[2020-03-27] MEDS: PANTOPRAZOLE 40 MG TABLET PO SCH (08:48)
[2020-03-27] MEDS: PIOGLITAZONE 15 MG TAB PO SCH (08:48)
[2020-03-27] MEDS: METOPROLOL TARTRATE 25 MG TAB PO SCH ×2 (08:48→21:44)
[2020-03-27] MEDS: LOSARTAN 25 MG TAB PO SCH (08:50)
[2020-03-27] MEDS: DICYCLOMINE 20 MG TAB PO SCH ×4 (08:50→21:43)
[2020-03-27] MEDS: FENOFIBRATE 54 MG TAB PO SCH (08:50)
[2020-03-27] MEDS: APIXABAN 5 MG TAB PO SCH ×2 (08:51→21:45)
[2020-03-27] MEDS: SUCRALFATE 1 GM TAB PO SCH ×4 (08:53→21:43)
[2020-03-27] MEDS: MEGESTROL 40 MG TAB PO SCH ×2 (08:55→21:45)
[2020-03-27] MEDS ORDERED: MEGESTROL 400 MG/10 ML CUP PO SCH (09:00)
[2020-03-27 09:12] LABS: African American GFR (CKD) 87.2 (60.0-200.0); Non-African American GFR(CKD) 75.2 (60.0-200.0)
--- NOTE | 2020-03-27 11:45 | P.HPIM ---
History of Present Illness H&P Date: 03/27/20 Chief Complaint: abdominal pain HISTORY OF PRESENT ILLNESS This is a 69-year-old black female patient of Dr. Velez with past medical history of pancreatic cancer initially diagnosed in the fall of 2018 status post Whipple procedure done in October 2019 at [facility] in [place]. She was subsequently diagnosed with metastatic disease to the liver, under the care of Dr. Herman and undergoing chemotherapy. History of diabetes mellitus type 2, hyperlipidemia, hypertension, paroxysmal atrial fibrillation on eliquis, gastroesophageal reflux disease, osteoarthritis, migraine headaches, remote history of tobacco use and dependence. Patient states that she was at clinic to have chemotherapy yesterday and was thought to be dehydrated and also expe riencing abdominal pain for the past week along with nausea and vomiting. Pain located in the lower suprapubic area and then radiated to the upper right quadrant. She also developed diarrhea over the past week and was instructed to come in the hospital for evaluation. Patient is also treated for E. coli UTI recently. She has had some mental status changes since diagnosis of cancer and CAT scan of the brain done as an outpatient on March 06 revealed no acute intracranial hemorrhage, midline shift or mass. Chronic microvascular ischemic changes only. Patient presented to [facility] emergency center found to have a temperature 100.7, heart rate 66, blood pressure 126/65, pulse ox 99% on room air. WBC 2.3, hemoglobin 9.2, platelet count 127. Sodium 134, potassium 4.9, chloride 102, CO2 21, BUN 16, creatinine 0.73. Blood sugar 253. Liver function tests were normal. Lipase 16. Urinalysis clear with nitrate and leukoesterase negative. Lactic acid 3.3. CAT scan of the abdomen and pelvis revealed prominent enlargement of the right hepatic lesions since CAT scan of January 20, 2020. Findings suggestive of constipation. Nonspecific distended bowel loop in the pelvis. Patient was admitted to the MedSurg floor, consult added for oncol iesha. She is on antibiotics in form of Zosyn and vancomycin. Blood culture and urine culture are in progress. She is on a regular diet and Glucerna added. Patient states that her abdominal pain is improved REVIEW OF SYSTEMS Constitutional: No fever, no chills, no night sweats. Reports weight change. Reports weakness, Reports fatigue. EENT: No headache. No blurred vision or double vision, no loss of vision. No loss of Hearing, no dizziness. No epistaxis. No sore throat. Lungs: No shortness of breath, cough, no sputum production. No wheezing. Cardiovascular: No chest pain, no lower extremity edema. No palpitations. No paroxysmal nocturnal dyspnea. No orthopnea. No lightheadedness or dizziness. No syncopal episodes. Abdominal: Reports abdominal pain. Reports nausea, Reportsvomiting. Reports diarrhea. No constipation. No bloody or tarry stools. Reports loss of appetite. Genitourinary: No dysuria, increased frequency, urgency. No urinary retention. Musculoskeletal: No myalgias. Reports muscle weakness, no gait dysfunction, no frequent falls. No back pain. No neck pain. Integumentary: No wounds, no lesions. No rash or pruritus. No unusual bruising. No change in hair or nails. Neurologic: No aphasia. No facial droop. No change in mentation. No head injury. No headache. No paralysis. No paresthesia. Psychiatric: No depression. No anxiety. No mood swings. Endocrine: No abnormal blood sugars. SOCIAL HISTORY Patient was a smoker for 20-30 years and quit 11 years ago. She denies any marijuana or illicit drug use. No alcohol use. She is and lives at home with her . FAMILY HISTORY Mother at age 62 from diabetes complications. Father in his late 60s from some type of cancer. Patient has a total of 4 siblings and one brother has from a myocardial infarction. Patient has 3 children one daughter and son are alive with no major medical problems. One son has passed due to complications from [place] war. PHYSICAL EXAMINATION Gen: This is a 69-year-old black female. She is resting in bed and appears to be comfortable and in no acute distress. HEENT: Head is atraumatic, normocephalic. Pupils equal, round. Sclerae is anicteric. NECK: Supple. No JVD. No lymphadenopathy. No thyromegaly. LUNGS: Clear to auscultation. No wheezes or rhonchi. No intercostal retractions. HEART: Regular rate and rhythm. No murmur. ABDOMEN: Soft. Bowel sounds are present. No masses. Generalized tenderness. EXTREMITIES: No pedal edema. No calf tenderness. Dorsalis pedis +2 bilaterally. NEUROLOGICAL: Patient is awake, alert and oriented x3. Cranial nerves 2 through 12 are grossly intact. ASSESSMENT AND PLAN 1. Abdominal pain, nausea, vomiting, diarrhea with dehydration secondary to chemotherapy. Patient admitted to the MedSur floor, IV fluids 0.9 normal saline. 2. Febrile neutropenia. Patient is on Zosyn and vancomycin. Consult with oncology. Urinalysis negative and chest x-ray negative. Blood culture is in progress. 3. Lactic acidosis secondary to dehydration. 4. Pancreatic cancer status post Whipple procedure, metastatic disease to the liver, currently undergoing chemotherapy. CAT scan shows progression of hepatic lesions. Continue Zenpep at home dosing. 6 GERD 5. Diabetes mellitus type 2. Continue Actos 15 mg daily, add NovoLog scale before meals and at bedtime. 6. Hyperlipidemia. Continue fenofibrate. 7. Hypertension. Continue losartan 25 mg daily, Lopressor 8. Paroxysmal atrial fibrillation. Continue eliquis, Lopressor. 9. GERD. Continue Protonix 40 mg daily and Carafate. 10. Severe protein calorie malnutrition. Continue Megace 40 mg twice daily, Glucerna twice daily. 11. DVT prophylaxis. Eliquis. Patient will be admitted to the hospital for a minimum of 2 night stay. Discharge plan: Most likely return home. Impression and plan of care have been directed as dictated by the signing physician. Ellie Subramanian nurse practitioner acting as scribe for signing physician. Past Medical History Past Medical History: Atrial Fibrillation, Cancer, Diabetes Mellitus, GERD/Reflux, Hyperlipidemia, Hypertension, Osteoarthritis (OA) Additional Past Medical History / Comment(s): MIGRAINE HEADACHES, , weight loss, abd. pain after eating, constipation, cancer pancreatic mets to 2 spots on liver History of Any Multi-Drug Resistant Organisms: None Reported Past Surgical History: Back Surgery, Bladder Surgery, Cholecystectomy, Hernia Repair, Hysterectomy, Orthopedic Surgery, Tubal Ligation Additional Past Surgical History / Comment(s): NECK FUSION X2, LEFT SHOULDERx 2,UMBILICAL HERNIA. Surgery for ectopic . back surg. x2, pancreatic surgery 2019, whipple October 15 2019. Past Anesthesia/Blood Transfusion Reactions: No Reported Reaction Past Psychological History: Anxiety, Depression Additional Psychological History / Comment(s): "chemo brain" Smoking Status: Former smoker Past Alcohol Use History: None Reported Additional Past Alcohol Use History / Comment(s): STARTED SMOKING AT AGE 18 QUIT IN 2009 Past Drug Use History: None Reported - Past Family History Mother Family Medical History: Diabetes Mellitus Brother(s) Family Medical History: Myocardial Infarction ([place]) Sister(s) Family Medical History: Myocardial Infarction ([place]) Medications and Allergies Home Medications Medication Instructions Recorded Confirmed Type Fenofibrate 54 mg PO DAILY 10/04/17 03/26/20 History Losartan [Cozaar] 25 mg PO DAILY 10/04/17 03/26/20 History Pantoprazole [Protonix] 40 mg PO DAILY #30 tablet. 02/08/19 03/26/20 Rx Apixaban [Eliquis] 5 mg PO BID 01/31/20 03/26/20 History Dicyclomine [Bentyl] 10 mg PO QID 03/26/20 03/26/20 History Fluconazole [Diflucan] 150 mg PO ONCE 03/26/20 03/26/20 History Latanoprost/Pf [Latanoprost 0.005% 1 drop BOTH EYES HS 03/26/20 03/26/20 History Eye Drop] Lidocaine-Prilocaine Cream [Emla 1 applic TOPICAL DAILY PRN 03/26/20 03/26/20 History Cream 2.5%/2.5%] Lipase/Protease/Amylase [Jose Francisco Gibbs 12,000 units PO DAILY PRN 03/26/20 03/26/20 History 6,000 Units Capsule] Lipase/Protease/Amylase [Jose Francisco Gibbs 18,000 units PO AC-TID 03/26/20 03/26/20 History 6,000 Units Capsule] Magic Mouthwash 15 ml PO QID PRN 03/26/20 03/26/20 History Megestrol [Megace] 40 mg PO BID 03/26/20 03/26/20 History Metoprolol Tartrate [Lopressor] 25 mg PO BID 03/26/20 03/26/20 History Mirtazapine 7.5 mg PO HS 03/26/20 03/26/20 History Ondansetron HCl [Zofran] 4 mg PO Q6H PRN 03/26/20 03/26/20 History Pioglitazone [Actos] 15 mg PO DAILY 03/26/20 03/26/20 History Sucralfate [Carafate] 1 gm PO ACHS 03/26/20 03/26/20 History oxyCODONE HCL [OxyIR] 5 mg PO TID 03/26/20 03/26/20 History Allergies Allergy/AdvReac Type Severity Reaction Status Date / Time lisinopril Allergy Unknown Verified 03/26/20 19:29 Jcxcfez-Nsm-Moh Reductase Allergy Swelling Verified 03/26/20 19:29 Inhibitor Physical Exam Vitals: Vital Signs Temp Pulse Pulse Resp BP BP Pulse Ox 03/27/20 05:00 98.4 F 68 18 156/68 100 03/26/20 23:13 171/74 03/26/20 22:01 98.9 F 70 18 165/73 100 03/26/20 20:51 99.6 F 67 19 149/59 100 03/26/20 19:40 81 19 126/77 100 03/26/20 18:43 67 18 145/79 100 03/26/20 16:14 100.7 F H 66 20 126/65 99 Intake and Output 03/26/20 03/27/20 03/27/20 22:59 06:59 14:59 Intake Total 490 950 Balance 490 950 Intake: Intake, IV Titration 650 Amount Piperacillin-Tazobactam 3 100 .375 gm In Sodium Chloride 0.9% 100 ml @ 25 mls/hr IVPB Q8HR RACHANA Rx# :[id number] Sodium Chloride 0.9% 1, 550 000 ml @ 50 mls/hr IV . Q20H RACHANA Rx#:[id number] Oral 490 300 Other: Voiding Method Toilet # Voids 1 2 Weight 49.442 kg Results CBC & Chem 7: 03/26/20 16:55 03/27/20 06:15 Labs: Abnormal Lab Results - Last 24 Hours (Table) 03/26/20 03/26/20 03/26/20 Range/Units 16:55 16:55 16:55 WBC 2.3 L (3.8-10.6) k/uL RBC 3.05 L (3.80-5.40) m/uL Hgb 9.2 L (11.4-16.0) gm/dL Hct 29.0 L (34.0-46.0) % Plt Count 127 L D (150-450) k/uL Lymphocytes # 0.6 L (1.0-4.8) k/uL Sodium 134 L (137-145) mmol/L Carbon Dioxide 21 L (22-30) mmol/L Glucose 253 H (74-99) mg/dL POC Glucose (mg/dL) (75-99) mg/dL Plasma Lactic Acid Zeyad (0.7-2.0) mmol/L Lipase 16 L (23-300) U/L Urine Protein Trace H (Negative) Urine Glucose (UA) 4+ H (Negative) 03/26/20 03/26/20 03/27/20 Range/Units 16:55 23:06 07:20 WBC (3.8-10.6) k/uL RBC (3.80-5.40) m/uL Hgb (11.4-16.0) gm/dL Hct (34.0-46.0) % Plt Count (150-450) k/uL Lymphocytes # (1.0-4.8) k/uL Sodium (137-145) mmol/L Carbon Dioxide (22-30) mmol/L Glucose (74-99) mg/dL POC Glucose (mg/dL) 202 H 137 H (75-99) mg/dL Plasma Lactic Acid Zeyad 3.3 H* (0.7-2.0) mmol/L Lipase (23-300) U/L Urine Protein (Negative) Urine Glucose (UA) (Negative) Microbiology - Last 24 Hours (Table) 03/26/20 16:55 Urine Culture - Preliminary Urine,Clean Catch Thrombosis Risk Factor Assmnt - Choose All That Apply Any of the Below Risk Factors Present?: No Other Risk Factors: Yes Each Risk Factor Represents 2 Points: Age 61-74 years, Malignancy Other congenital or acquired thrombophilia - If yes, enter type in comment: No Thrombosis Risk Factor Assessment Total Risk Factor Score: 4 Thrombosis Risk Factor Assessment Level: Moderate Risk
[2020-03-27 12:12] LABS: Glucose,Whole Blood 160 mg/dL (75-99)
[2020-03-27] MEDS: INSULIN ASPART (NovoLOG) 100 UNIT/ML VIAL SQ SCH ×3 (12:23→21:38)
[2020-03-27 14:15] VITALS: BMI 18.7
--- NOTE | 2020-03-27 14:54 | P.CONS ---
History of Present Illness - Reason for Consult Consult date: 03/27/20 Pancreatic Cancer, Pancytopenia Requesting physician: Ellie Subramanian - History of Present Illness Mrs. Carrera is a pleasant female patient known to Dr. Herman as primary Oncologist for treatment of metastatic Pancreatic cancer. She was recently started on second line therapy with Gemsar and Abraxane and status post cycle one on 03/25/20. No growth factor was given after this treatment. Review of Systems All systems: negative (hpi) Past Medical History Past Medical History: Atrial Fibrillation, Cancer, Diabetes Mellitus, GERD/Reflux, Hyperlipidemia, Hypertension, Osteoarthritis (OA) Additional Past Medical History / Comment(s): MIGRAINE HEADACHES, , weight loss, abd. pain after eating, constipation, cancer pancreatic mets to 2 spots on liver History of Any Multi-Drug Resistant Organisms: None Reported Past Surgical History: Back Surgery, Bladder Surgery, Cholecystectomy, Hernia Repair, Hysterectomy, Orthopedic Surgery, Tubal Ligation Additional Past Surgical History / Comment(s): NECK FUSION X2, LEFT SHOULDERx 2,UMBILICAL HERNIA. Surgery for ectopic . back surg. x2, pancreatic surgery 2019, whipple October 15 2019. Past Anesthesia/Blood Transfusion Reactions: No Reported Reaction Past Psychological History: Anxiety, Depression Additional Psychological History / Comment(s): "chemo brain" Smoking Status: Former smoker Past Alcohol Use History: None Reported Additional Past Alcohol Use History / Comment(s): STARTED SMOKING AT AGE 18 QUIT IN 2009 Past Drug Use History: None Reported - Past Family History Mother Family Medical History: Diabetes Mellitus Brother(s) Family Medical History: Myocardial Infarction ([place]) Sister(s) Family Medical History: Myocardial Infarction ([place]) Medications and Allergies Home Medications Medication Instructions Recorded Confirmed Type Fenofibrate 54 mg PO DAILY 10/04/17 03/26/20 History Losartan [Cozaar] 25 mg PO DAILY 10/04/17 03/26/20 History Pantoprazole [Protonix] 40 mg PO DAILY #30 tablet. 02/08/19 03/26/20 Rx Apixaban [Eliquis] 5 mg PO BID 01/31/20 03/26/20 History Dicyclomine [Bentyl] 10 mg PO QID 03/26/20 03/26/20 History Fluconazole [Diflucan] 150 mg PO ONCE 03/26/20 03/26/20 History Latanoprost/Pf [Latanoprost 0.005% 1 drop BOTH EYES HS 03/26/20 03/26/20 History Eye Drop] Lidocaine-Prilocaine Cream [Emla 1 applic TOPICAL DAILY PRN 03/26/20 03/26/20 History Cream 2.5%/2.5%] Lipase/Protease/Amylase [Jose Francisco Gibbs 12,000 units PO DAILY PRN 03/26/20 03/26/20 History 6,000 Units Capsule] Lipase/Protease/Amylase [Jose Francisco Gibbs 18,000 units PO AC-TID 03/26/20 03/26/20 History 6,000 Units Capsule] Magic Mouthwash 15 ml PO QID PRN 03/26/20 03/26/20 History Megestrol [Megace] 40 mg PO BID 03/26/20 03/26/20 History Metoprolol Tartrate [Lopressor] 25 mg PO BID 03/26/20 03/26/20 History Mirtazapine 7.5 mg PO HS 03/26/20 03/26/20 History Ondansetron HCl [Zofran] 4 mg PO Q6H PRN 03/26/20 03/26/20 History Pioglitazone [Actos] 15 mg PO DAILY 03/26/20 03/26/20 History Sucralfate [Carafate] 1 gm PO ACHS 03/26/20 03/26/20 History oxyCODONE HCL [OxyIR] 5 mg PO TID 03/26/20 03/26/20 History Allergies Allergy/AdvReac Type Severity Reaction Status Date / Time lisinopril Allergy Unknown Verified 03/26/20 19:29 [id number] Reductase Allergy Swelling Verified 03/26/20 19:29 Inhibitor Physical Exam Vitals: Vital Signs Temp Pulse Pulse Resp BP BP Pulse Ox 03/27/20 12:10 98.9 F 60 16 124/66 100 03/27/20 08:00 68 18 03/27/20 05:00 98.4 F 68 18 156/68 100 03/26/20 23:13 171/74 03/26/20 22:01 98.9 F 70 18 165/73 100 03/26/20 20:51 99.6 F 67 19 149/59 100 03/26/20 19:40 81 19 126/77 100 03/26/20 18:43 67 18 145/79 100 03/26/20 16:14 100.7 F H 66 20 126/65 99 Intake and Output 03/26/20 03/27/20 03/27/20 22:59 06:59 14:59 Intake Total 490 950 Balance 490 950 Intake: Intake, IV Titration 650 Amount Piperacillin-Tazobactam 3 100 .375 gm In Sodium Chloride 0.9% 100 ml @ 25 mls/hr IVPB Q8HR [facility] Rx# :[id number] Sodium Chloride 0.9% 1, 550 000 ml @ 50 mls/hr IV . Q20H [facility] Rx#:[id number] Oral 490 300 Other: Voiding Method Toilet Toilet # Voids 1 2 1 Weight 49.442 kg 49.442 kg - Constitutional General appearance: cooperative, no acute distress - EENT Eyes: EOMI, PERRLA ENT: NA/AT, normal oropharynx - Respiratory Respiratory: bilateral: diminished - Cardiovascular Rhythm: regular Heart sounds: normal: S1, S2 leg Peripheral Edema: bilateral: Trace - Gastrointestinal General gastrointestinal: distended, soft, tenderness - Integumentary Integumentary: pale - Neurologic Neurologic: CNII-XII intact - Musculoskeletal Musculoskeletal: generalized weakness - Psychiatric Psychiatric: A&O x's 3, appropriate affect, intact judgment & insight Results CBC & Chem 7: 03/27/20 15:13 03/27/20 15:13 Labs: Abnormal Lab Results - Last 24 Hours (Table) 03/26/20 03/26/20 03/26/20 Range/Units 16:55 16:55 16:55 WBC 2.3 L (3.8-10.6) k/uL RBC 3.05 L (3.80-5.40) m/uL Hgb 9.2 L (11.4-16.0) gm/dL Hct 29.0 L (34.0-46.0) % Plt Count 127 L D (150-450) k/uL Lymphocytes # 0.6 L (1.0-4.8) k/uL Sodium 134 L (137-145) mmol/L Carbon Dioxide 21 L (22-30) mmol/L Glucose 253 H (74-99) mg/dL POC Glucose (mg/dL) (75-99) mg/dL Plasma Lactic Acid Zeyad (0.7-2.0) mmol/L Lipase 16 L (23-300) U/L Urine Protein Trace H (Negative) Urine Glucose (UA) 4+ H (Negative) 03/26/20 03/26/20 03/27/20 Range/Units 16:55 23:06 07:20 WBC (3.8-10.6) k/uL RBC (3.80-5.40) m/uL Hgb (11.4-16.0) gm/dL Hct (34.0-46.0) % Plt Count (150-450) k/uL Lymphocytes # (1.0-4.8) k/uL Sodium (137-145) mmol/L Carbon Dioxide (22-30) mmol/L Glucose (74-99) mg/dL POC Glucose (mg/dL) 202 H 137 H (75-99) mg/dL Plasma Lactic Acid Zeyad 3.3 H* (0.7-2.0) mmol/L Lipase (23-300) U/L Urine Protein (Negative) Urine Glucose (UA) (Negative) 03/27/20 Range/Units 11:51 WBC (3.8-10.6) k/uL RBC (3.80-5.40) m/uL Hgb (11.4-16.0) gm/dL Hct (34.0-46.0) % Plt Count (150-450) k/uL Lymphocytes # (1.0-4.8) k/uL Sodium (137-145) mmol/L Carbon Dioxide (22-30) mmol/L Glucose (74-99) mg/dL POC Glucose (mg/dL) 160 H (75-99) mg/dL Plasma Lactic Acid Zeyad (0.7-2.0) mmol/L Lipase (23-300) U/L Urine Protein (Negative) Urine Glucose (UA) (Negative) Microbiology - Last 24 Hours (Table) 03/26/20 16:55 Urine Culture - Preliminary Urine,Clean Catch Chest x-ray: report reviewed CT scan - abdomen: report reviewed CT scan - pelvis: report reviewed Assessment and Plan Plan: Assessment and recommendations: Metastatic Pancreatic Cancer - Liver - Status Post Cycle 1 (3 treatments) of Gemsar and Abraxane (2nd line) - No Growth Factor noted prophylaxic - Last infusion on 03/25/20 Abdominal Pain/Nausea/Vomiting/Diarrhea: - Initial Presentation with above - CT scan noted Constipation PLan: Monitor conservatively and with aggressive supportive care Will see prior to next treatment and defer change in treatment or dose reduction to primary oncologist Physician Attest: I have completed full history andp hysical and agree with above dictation, dictated as a scribe.
[2020-03-27 15:31] LABS: Basophils % (A) 0 %; Eosinophils % (A) 1 %; HCT 25.8 % (34.0-46.0); HGB 8.4 gm/dL (11.4-16.0); Lymphocytes # (A) 0.9 k/uL (1.0-4.8); Lymphocytes % (A) 32 %; MCHC 32.4 g/dL (31.0-37.0); MCV 95.6 fL (80.0-100.0); Mean Platelet Volume 9.9; Monocytes # (A) 0.1 k/uL (0-1.0); Monocytes % (A) 3 %; Neutrophils # (A) 1.8 k/uL (1.3-7.7); Neutrophils % (A) 63 %; Platelet Count 119 k/uL (150-450); RDW 13.8 % (11.5-15.5); WBC 2.9 k/uL (3.8-10.6)
[2020-03-27 15:44] LABS: ALT 10 U/L (4-34); AST 25 U/L (14-36); African American GFR (CKD) >90 (>60 ml/min/1.73 sqM); Albumin 3.7 g/dL (3.5-5.0); Albumin/Globulin Ratio 1.2; Alkaline Phosphatase 67 U/L (38-126); Anion Gap 5 mmol/L; Blood Urea Nitrogen 9 mg/dL (7-17); Calcium 9.4 mg/dL (8.4-10.2); Carbon Dioxide 25 mmol/L (22-30); Chloride 104 mmol/L (98-107); Glucose 164 mg/dL (74-99); Magnesium 1.9 mg/dL (1.6-2.3); Non-African American GFR(CKD) >90 (>60 ml/min/1.73 sqM); Potassium 4.2 mmol/L (3.5-5.1); Sodium 134 mmol/L (137-145); Total Bilirubin 0.7 mg/dL (0.2-1.3); Total Protein 6.7 g/dL (6.3-8.2)
[2020-03-27 17:05] LABS: Glucose,Whole Blood 168 mg/dL (75-99)
[2020-03-27] MEDS: SODIUM CHLORIDE 0.9% 1,000 ML IV SCH ×2 (17:49→22:29)
[2020-03-27] MEDS ORDERED: MIRTAZAPINE 15 MG TAB PO SCH (21:00)
[2020-03-27 21:35] LABS: Glucose,Whole Blood 99 mg/dL (75-99)
[2020-03-27] MEDS: LATANOPROST 0.005% OPHTH DROPS 2.5 ML BTL BOTH EYES SCH (22:17)
[2020-03-28] MEDS: PIPERACILLIN-TAZOBACTAM 3.375 GM in SODIUM CHLORIDE 0.9% 100 ML IVPB SCH ×3 (00:40→16:16)
[2020-03-28 05:45] LABS: Basophils % (A) 1 %; Eosinophils # (A) 0.1 k/uL (0-0.7); Eosinophils % (A) 2 %; HCT 26.5 % (34.0-46.0); HGB 8.5 gm/dL (11.4-16.0); Lymphocytes # (A) 0.9 k/uL (1.0-4.8); Lymphocytes % (A) 26 %; MCH 30.5 pg (25.0-35.0); MCV 95.2 fL (80.0-100.0); Mean Platelet Volume 9.2; Monocytes # (A) 0.1 k/uL (0-1.0); Monocytes % (A) 2 %; Neutrophils # (A) 2.3 k/uL (1.3-7.7); Neutrophils % (A) 69 %; Platelet Count 128 k/uL (150-450); RBC 2.78 m/uL (3.80-5.40); RDW 14.1 % (11.5-15.5); WBC 3.3 k/uL (3.8-10.6)
[2020-03-28] MEDS ORDERED: VANCOMYCIN TROUGH DUE 1 EACH MISC MISCELLANE ONE (06:00)
[2020-03-28 07:05] LABS: Glucose,Whole Blood 149 mg/dL (75-99)
[2020-03-28] MEDS: APIXABAN 5 MG TAB PO SCH ×2 (07:25→21:10)
[2020-03-28] MEDS: VANCOMYCIN 750 MG in SODIUM CHLORIDE 0.9% 250 ML IVPB SCH (07:25)
[2020-03-28] MEDS: DICYCLOMINE 20 MG TAB PO SCH ×4 (07:25→20:56)
[2020-03-28] MEDS: PANTOPRAZOLE 40 MG TABLET PO SCH (07:26)
[2020-03-28] MEDS: LOSARTAN 25 MG TAB PO SCH (07:26)
[2020-03-28] MEDS: METOPROLOL TARTRATE 25 MG TAB PO SCH ×2 (07:26→21:10)
[2020-03-28] MEDS: SUCRALFATE 1 GM TAB PO SCH ×4 (07:27→21:10)
[2020-03-28] MEDS: INSULIN ASPART (NovoLOG) 100 UNIT/ML VIAL SQ SCH ×4 (07:27→22:33)
[2020-03-28] MEDS: LIPASE 5,000/PROTEASE 17,000/AMYLASE 24,000 PO SCH ×3 (07:28→18:07)
[2020-03-28] MEDS: MEGESTROL 40 MG TAB PO SCH ×2 (07:28→21:10)
[2020-03-28] MEDS: PIOGLITAZONE 15 MG TAB PO SCH (07:29)
[2020-03-28] MEDS: FENOFIBRATE 54 MG TAB PO SCH (07:29)
[2020-03-28] MEDS: HYDROmorphone 0.5 MG/0.5 ML SYRINGE IVP PRN (07:35)
[2020-03-28 09:35] LABS: African American GFR (CKD) 87.2 (60.0-200.0); Albumin 3.7 g/dL (3.80-4.90); Albumin/Globulin Ratio 1.76 (1.60-3.17); Anion Gap 7.7 mmol/L (4.00-12.00); BUN/Creat Ratio 8.75 Ratio (12.00-20.00); Calcium 9.2 mg/dL (8.7-10.3); Carbon Dioxide 23.3 mmol/L (21.6-31.8); Globulin 2.1 g/dL (1.6-3.3); Magnesium 1.6 mg/dL (1.5-2.4); Non-African American GFR(CKD) 75.2 (60.0-200.0); Potassium 3.7 mmol/L (3.5-5.5); Total Bilirubin 0.6 mg/dL (0.2-1.2); Total Protein 5.8 g/dL (6.2-8.2)
[2020-03-28 11:42] LABS: Glucose,Whole Blood 175 mg/dL (75-99)
[2020-03-28] MEDS ORDERED: bisacodyL 10 MG SUPP RECTAL STA (11:52)
--- NOTE | 2020-03-28 12:34 | P.PN ---
Subjective Progress Note Date: 03/28/20 Principal diagnosis: Chemotherapy induced intractable vomiting and diarrhea Nausea/vomiting and diarrhea much improved. Continues to have abdominal pain especially with PO intake. Objective - Vital Signs Vital signs: Vital Signs Temp 98.7 F 03/28/20 05:54 Pulse 70 03/28/20 05:54 Resp 16 03/28/20 05:54 BP 153/70 03/28/20 05:54 Pulse Ox 100 03/28/20 05:54 Intake & Output 03/27/20 03/28/20 03/28/20 18:59 06:59 18:59 Intake Total 1470 840 Balance 1470 840 Weight 49.442 kg Intake: Intake, IV Titration 550 Amount Piperacillin-Tazobactam 3 100 .375 gm In Sodium Chloride 0.9% 100 ml @ 25 mls/hr IVPB Q8HR [facility] Rx# :[id number] Sodium Chloride 0.9% 1, 450 000 ml @ 50 mls/hr IV . Q20H [facility] Rx#:[id number] Oral 1470 290 Other: Voiding Method Toilet Toilet # Voids 1 1 1 - Exam Gen.: No acute distress HEENT: No conjunctival pallor or scleral icterus. Neck: Supple. Lungs: No respiratory distress. Heart: Regular rate. No lower extremity edema. Abdomen: Soft. MSK: 4/4 strength in all 4 extremities. Neuro: Alert and oriented. Skin: No jaundice. Psych: Appropriate affect. - Labs CBC & Chem 7: 03/28/20 05:40 03/28/20 05:40 Labs: Abnormal Lab Results - Last 24 Hours (Table) 03/27/20 03/27/20 03/27/20 Range/Units 15:13 15:13 17:03 WBC 2.9 L (3.8-10.6) k/uL RBC 2.70 L (3.80-5.40) m/uL Hgb 8.4 L (11.4-16.0) gm/dL Hct 25.8 L (34.0-46.0) % Plt Count 119 L (150-450) k/uL Lymphocytes # 0.9 L (1.0-4.8) k/uL Sodium 134 L (137-145) mmol/L BUN (9.0-27.0) mg/dL BUN/Creatinine Ratio (12.00-20.00) Ratio Glucose 164 H (74-99) mg/dL POC Glucose (mg/dL) 168 H (75-99) mg/dL Total Protein (6.2-8.2) g/dL Albumin (3.80-4.90) g/dL 03/28/20 03/28/20 03/28/20 Range/Units 05:40 05:40 07:03 WBC 3.3 L (3.8-10.6) k/uL RBC 2.78 L (3.80-5.40) m/uL Hgb 8.5 L (11.4-16.0) gm/dL Hct 26.5 L (34.0-46.0) % Plt Count 128 L (150-450) k/uL Lymphocytes # 0.9 L (1.0-4.8) k/uL Sodium (137-145) mmol/L BUN 7.0 L (9.0-27.0) mg/dL BUN/Creatinine Ratio 8.75 L (12.00-20.00) Ratio Glucose 153 H (74-99) mg/dL POC Glucose (mg/dL) 149 H (75-99) mg/dL Total Protein 5.8 L (6.2-8.2) g/dL Albumin 3.70 L (3.80-4.90) g/dL 03/28/20 Range/Units 11:38 WBC (3.8-10.6) k/uL RBC (3.80-5.40) m/uL Hgb (11.4-16.0) gm/dL Hct (34.0-46.0) % Plt Count (150-450) k/uL Lymphocytes # (1.0-4.8) k/uL Sodium (137-145) mmol/L BUN (9.0-27.0) mg/dL BUN/Creatinine Ratio (12.00-20.00) Ratio Glucose (74-99) mg/dL POC Glucose (mg/dL) 175 H (75-99) mg/dL Total Protein (6.2-8.2) g/dL Albumin (3.80-4.90) g/dL Microbiology - Last 24 Hours (Table) 03/26/20 16:55 Blood Culture - Preliminary Blood No Growth after 24 hours 03/26/20 16:55 Urine Culture - Final Urine,Clean Catch Assessment and Plan Assessment: Pancreatic cancer Chemotherapy induced intractable vomiting and diarrhea Abdominal pain due to cancer and chemotherapy Plan: Ms. Carrera is a very pleasant 69-year-old female with a history of pancreatic cancer on chemotherapy with second line Gemzar and Abraxane. Status post cycle 1. Here for intractable vomiting and diarrhea. Also with abdominal pain and fevers. Most of her symptoms have resolved however she continues to have abdominal pain. Especially with PO intake. Continue supportive care. CBC without neutropenia. No G-CSF needed. She will need to follow-up prior to cycle 2. Discussed with patient and she is agreeable to the plan. All of her questions were answered.
[2020-03-28] MEDS: polyethylene glycoL 3350 17 GM POWD.PACK PO SCH (14:07)
[2020-03-28] MEDS ORDERED: VANCOMYCIN 750 MG in SODIUM CHLORIDE 0.9% 250 ML IVPB SCH (16:00)
--- NOTE | 2020-03-28 16:00 | P.PN ---
Subjective Progress Note Date: 03/28/20 (Abdominal pain, nausea and vomiting) HISTORY OF PRESENT ILLNESS This is a 69-year-old black female patient of Dr. Velez with past medical history of pancreatic cancer initially diagnosed in the fall of 2018 status post Whipple procedure and chemoradiation done in October 2019 at [facility] in [place]. She was subsequently diagnosed with metastatic pancreatic disease to the liver, under the care of Dr. Herman and undergoing chemotherapy with second line therapy with Gemzar and Abraxane status post cycle 1 on 03/25. History of diabetes mellitus type 2, hyperlipidemia, hypertension, paroxysmal atrial fibrillation on eliquis, gastroesophageal reflux disease, osteoarthritis, migraine headaches, remote history of tobacco use and dependence. Patient states that she was at clinic to have chemotherapy yesterday and was thought to be dehydrated and also experiencing abdominal pain for the past week along with nausea and vomiting. Pain located in the lower suprapubic area and then radiated to the upper right quadrant. She also developed diarrhea over the past week and was instructed to come in the hospital for evaluation. Patient is also treated for E. coli UTI recently. She has had some mental status changes since diagnosis of cancer and CAT scan of the brain done as an outpatient on March 06 revealed no acute intracranial hemorrhage, midline shift or mass. Chronic microvascular ischemic changes only. Patient presented to [facility] emergency center found to have a temperature 100.7, heart rate 66, blood pressure 126/65, pulse ox 99% on room air. WBC 2.3, hemoglobin 9.2, platelet count 127. Sodium 134, potassium 4.9, chloride 102, CO2 21, BUN 16, creatinine 0.73. Blood sugar 253. Liver function tests were normal. Lipase 16. Urinalysis clear with nitrate and leukoesterase negative. Lactic acid 3.3. CAT scan of the abdomen and pelvis revealed prominent enlargement of the right hepatic lesions since CAT scan of January 20, 2020. Findings suggestive of constipation. Nonspecific distended bowel loop in the pelvis. Patient was admitted to the MedSurg floor, consult added for oncology. She is on antibiotics in form of Zosyn and vancomycin. Blood culture and urine culture are in progress. She is on a regular diet and Glucerna added. Patient states that her abdominal pain is improved 03/28 no episodes of fever noted overnight. Patient continues to have abdominal pain and nausea. Pain is controlled with dilaudid and OxyContin. Patient had no bowel movement. She does take MiraLAX at home but has not had any bowel movement for the past few days. Abdominal x-ray ordered. Dulcolax suppository ordered with MiraLAX to be given daily. Vancomycin will be discontinued as no episodes of fever noted. No source of infection found blood cultures and urine culture has been negative so far. According to the at bedside patient did not get any antibiotic for the urinary tract infection but did have positive urine cultures on 03/24 done at the oncology office. REVIEW OF SYSTEMS Constitutional: No fever, no chills, no night sweats. Reports weight change. Reports weakness, Reports fatigue. EENT: No headache. No blurred vision or double vision, no loss of vision. No loss of Hearing, no dizziness. No epistaxis. No sore throat. Lungs: No shortness of breath, cough, no sputum production. No wheezing. Cardiovascular: No chest pain, no lower extremity edema. No palpitations. No paroxysmal nocturnal dyspnea. No orthopnea. No lightheadedness or dizziness. No syncopal episodes. Abdominal: Reports abdominal pain. Reports nausea, Reportsvomiting. Reports diarrhea. No constipation. No bloody or tarry stools. Reports loss of appetite. Genitourinary: No dysuria, increased frequency, urgency. No urinary retention. Musculoskeletal: No myalgias. Reports muscle weakness, no gait dysfunction, no frequent falls. No back pain. No neck pain. Integumentary: No wounds, no lesions. No rash or pruritus. No unusual br uising. No change in hair or nails. Neurologic: No aphasia. No facial droop. No change in mentation. No head injury. No headache. No paralysis. No paresthesia. Psychiatric: No depression. No anxiety. No mood swings. Endocrine: No abnormal blood sugars. Objective - Vital Signs Vital signs: Vital Signs Temp 99.5 F 03/28/20 12:48 Pulse 63 03/28/20 12:48 Resp 18 03/28/20 12:48 BP 157/64 03/28/20 12:48 Pulse Ox 100 03/28/20 12:48 Intake & Output 03/27/20 03/28/20 03/28/20 18:59 06:59 18:59 Intake Total 1470 840 Balance 1470 840 Weight 49.442 kg Intake: Intake, IV Titration 550 Amount Piperacillin-Tazobactam 3 100 .375 gm In Sodium Chloride 0.9% 100 ml @ 25 mls/hr IVPB Q8HR [facility] Rx# :[id number] Sodium Chloride 0.9% 1, 450 000 ml @ 50 mls/hr IV . Q20H [facility] Rx#:[id number] Oral 1470 290 Other: Voiding Method Toilet Toilet # Voids 1 1 1 - Exam - Constitutional General appearance: cooperative, no acute distress, cachectic - EENT Eyes: anicteric sclerae, PERRLA, normal appearance ENT: hearing grossly normal - Neck Neck: no lymphadenopathy, normal ROM, no other, no rigidity, no stridor, no thyromegaly - Respiratory Respiratory: bilateral: CTA, negative: diminished, dullness, rales, rhonchi - Cardiovascular Rhythm: regular Heart sounds: normal: S1, S2 Abnormal Heart Sounds: no systolic murmur, no diastolic murmur, no rub, no S3 Gallop, no S4 Gallop, no click, no other - Gastrointestinal General gastrointestinal: normal bowel sounds, soft tender to palpate diffusely - Integumentary Integumentary: no rash - Neurologic Neurologic: CNII-XII intact - Musculoskeletal Musculoskeletal: gait normal, strength equal bilaterally - Psychiatric Psychiatric: A&O x's 3, appropriate affect - Labs CBC & Chem 7: 03/28/20 05:40 03/28/20 05:40 Labs: Abnormal Lab Results - Last 24 Hours (Table) 03/27/20 03/28/20 03/28/20 Range/Units 17:03 05:40 05:40 WBC 3.3 L (3.8-10.6) k/uL RBC 2.78 L (3.80-5.40) m/uL Hgb 8.5 L (11.4-16.0) gm/dL Hct 26.5 L (34.0-46.0) % Plt Count 128 L (150-450) k/uL Lymphocytes # 0.9 L (1.0-4.8) k/uL BUN 7.0 L (9.0-27.0) mg/dL BUN/Creatinine Ratio 8.75 L (12.00-20.00) Ratio Glucose 153 H (70-110) mg/dL POC Glucose (mg/dL) 168 H (75-99) mg/dL Total Protein 5.8 L (6.2-8.2) g/dL Albumin 3.70 L (3.80-4.90) g/dL 03/28/20 03/28/20 Range/Units 07:03 11:38 WBC (3.8-10.6) k/uL RBC (3.80-5.40) m/uL Hgb (11.4-16.0) gm/dL Hct (34.0-46.0) % Plt Count (150-450) k/uL Lymphocytes # (1.0-4.8) k/uL BUN (9.0-27.0) mg/dL BUN/Creatinine Ratio (12.00-20.00) Ratio Glucose (70-110) mg/dL POC Glucose (mg/dL) 149 H 175 H (75-99) mg/dL Total Protein (6.2-8.2) g/dL Albumin (3.80-4.90) g/dL Microbiology - Last 24 Hours (Table) 03/26/20 16:55 Blood Culture - Preliminary Blood No Growth after 24 hours 03/26/20 16:55 Urine Culture - Final Urine,Clean Catch Assessment and Plan Plan: 1. Abdominal pain, nausea, vomiting, diarrhea with dehydration secondary to chemotherapy. Patient admitted to the MedSur floor, IV fluids 0.9 normal saline. 2. Febrile neutropenia. Possible source urinary tract infection and a urine culture has been negative Patient is on Zosyn. Vancomycin will be discontinued Consult with oncology. Urinalysis negative and chest x-ray negative. Blood culture is in progress. 3. Lactic acidosis secondary to dehydration. 4. Pancreatic cancer status post Whipple procedure and chemoradiation in October 2019 , with recent diagnosis of metastatic pancreatic disease to the liver, cu rrently undergoing chemotherapy. Has completed cycle 1 on 03/25 CAT scan shows progression of hepatic lesions. Continue Zenpep at home dosing. 5. Diabetes mellitus type 1 post subtotal pancreatectomy for the pancreatic surgery. C-peptide low Continue Actos 15 mg daily and has recently been s tarted on insulin as outpatient by her wool dyer Dr. Velez, add NovoLog scale before meals and at bedtime. 6. Hyperlipidemia. Continue fenofibrate. 7. Hypertension. Continue losartan 25 mg daily, Lopressor 8. Paroxysmal atrial fibrillation. Continue eliquis, Lopressor. 9. GERD. Continue Protonix 40 mg daily and Carafate. 10. Severe protein calorie malnutrition. Continue Megace 40 mg twice daily, Glucerna twice daily. 11. DVT prophylaxis. Eliquis. 12 Pancytopenia secondary to chemotherapy no growth factor received after completion of cycle 1 on chemotherapy continue to monitor patient will follow with oncology as outpatient 13. Loss of appetite with depression. Continue Remeron at 15 mg at bedtime 14 acute on chronic abdominal pain on OxyContin 1 tab 3 times a day at home. Pain worsened with constipation. Continue diet added 0.5 mg every 3 hours for pain control. Dulcolax suppository given today. MiraLAX added for constipation 15. Constipation MiraLAX added. Abdominal x-ray to rule out obstruction Dulcolax suppository start Discharge plan: Most likely return home.
--- NOTE | 2020-03-28 17:01 | XR ---
EXAMINATION TYPE: XR abdomen 1V DATE OF EXAM: 03/28/2020 COMPARISON: 10/28/2015 HISTORY: Abdominal pain TECHNIQUE: Single view FINDINGS: There is no sign of intestinal obstruction or pneumoperitoneum. Fecal pattern is normal. Th ere are clips from cholecystectomy. Lung bases appear clear. There is lower lumbar spine fusion surge ry. Bony structures are intact. IMPRESSION: Nonacute abdomen. No adverse change.
[2020-03-28 17:26] LABS: Glucose,Whole Blood 86 mg/dL (75-99)
[2020-03-28] MEDS ORDERED: MIRTAZAPINE 15 MG TAB PO SCH (21:00)
[2020-03-28] MEDS: LATANOPROST 0.005% OPHTH DROPS 2.5 ML BTL BOTH EYES SCH (21:10)
[2020-03-28 22:01] LABS: Glucose,Whole Blood 80 mg/dL (75-99)
[2020-03-28] MEDS: SODIUM CHLORIDE 0.9% 1,000 ML IV SCH (22:37)
[2020-03-29] MEDS: PIPERACILLIN-TAZOBACTAM 3.375 GM in SODIUM CHLORIDE 0.9% 100 ML IVPB SCH ×2 (00:21→08:23)
[2020-03-29] MEDS: HYDROmorphone 0.5 MG/0.5 ML SYRINGE IVP PRN (00:24)
[2020-03-29 04:42] VITALS: RESP 16
[2020-03-29 07:21] LABS: Glucose,Whole Blood 87 mg/dL (75-99)
[2020-03-29] MEDS: DICYCLOMINE 20 MG TAB PO SCH (08:08)
[2020-03-29] MEDS: INSULIN ASPART (NovoLOG) 100 UNIT/ML VIAL SQ SCH ×2 (08:08→12:29)
[2020-03-29] MEDS: PIOGLITAZONE 15 MG TAB PO SCH (08:23)
[2020-03-29] MEDS: FENOFIBRATE 54 MG TAB PO SCH (08:23)
[2020-03-29] MEDS: LIPASE 5,000/PROTEASE 17,000/AMYLASE 24,000 PO SCH ×2 (08:24→12:29)
[2020-03-29] MEDS: polyethylene glycoL 3350 17 GM POWD.PACK PO SCH (08:24)
[2020-03-29] MEDS: APIXABAN 5 MG TAB PO SCH (08:25)
[2020-03-29] MEDS: LOSARTAN 25 MG TAB PO SCH (08:26)
[2020-03-29] MEDS: METOPROLOL TARTRATE 25 MG TAB PO SCH (08:26)
[2020-03-29] MEDS: PANTOPRAZOLE 40 MG TABLET PO SCH (08:26)
[2020-03-29] MEDS: SUCRALFATE 1 GM TAB PO SCH ×2 (08:26→12:30)
[2020-03-29] MEDS: MEGESTROL 40 MG TAB PO SCH (08:26)
[2020-03-29 09:42] LABS: African American GFR (CKD) 102.5 (60.0-200.0); Non-African American GFR(CKD) 88.4 (60.0-200.0)
[2020-03-29 11:51] LABS: Glucose,Whole Blood 156 mg/dL (75-99)
[2020-03-29] MEDS ORDERED: MAG HYDROX/AL HYDROX/SIMETH 30 ML CUP PO PRN (12:31)
--- NOTE | 2020-03-29 13:21 | P.DS ---
Providers Date of admission: 03/26/20 19:50 Attending physician: Kendell Ocampo Consults: 03/27/20 08:03 Consult Physician Routine Consulting Provider: Geovany Flores Consult Reason/Comments: panreatic ca, pancytopenia Do you want consulting provider notified?: Yes Primary care physician: Glenny Velez MD Hospital Course: This is a 69-year-old black female patient of Dr. Velez with past medical history of pancreatic cancer initially diagnosed in the fall of 2018 status post Whipple procedure and chemoradiation done in October 2019 at [facility] in [place]. She was subsequently diagnosed with metastatic pancreatic disease to the liver, under the care of Dr. Herman and undergoing chemotherapy with second line therapy with Gemzar and Abraxane status post cycle 1 on 03/25. History of diabetes mellitus type 2, hyperlipidemia, hypertension, paroxysmal atrial fibrillation on eliquis, gastroesophageal reflux disease, osteoarthritis, migraine headaches, remote history of tobacco use and dependence. Patient states that she was at clinic to have chemotherapy yesterday and was thought to be dehydrated and also experiencing abdominal pain for the past week along with nausea and vomiting. Pain located in the lower suprapubic area and then radiated to the upper right quadrant. She also developed diarrhea over the past week and was instructed to come in the hospital for evaluation. Patient is also treated for E. coli UTI recently. She has had some mental status changes since diagnosis of cancer and CAT scan of the brain done as an outpatient on March 06 revealed no acute intracranial hemorrhage, midline shift or mass. Chronic microvascular ischemic changes only. Patient presented to [facility] emergency center found to have a temperature 100.7, heart rate 66, blood pressure 126/65, pulse ox 99% on room air. WBC 2.3, hemoglobin 9.2, platelet count 127. Sodium 134, potassium 4.9, chloride 102, CO2 21, BUN 16, creatinine 0.73. Blood sugar 253. Liver function tests were normal. Lipase 16. Urinalysis clear with nitrate and leukoesterase negative. Lactic acid 3.3. CAT scan of the abdomen and pelvis revealed prominent enlargement of the right hepatic lesions since CAT scan of January 20, 2020. Findings suggestive of constipation. Nonspecific distended bowel loop in the pelvis. Patient was admitted to the [facility] floor, consult added for oncology. She is on antibiotics in form of Zosyn and vancomycin. Blood culture and urine culture are in progress. She is on a regular diet and Glucerna added. Patient states that her abdominal pain is improved 03/28 no episodes of fever noted overnight. Patient continues to have abdominal pain and nausea. Pain is controlled with dilaudid and OxyContin. Patient had no bowel movement. She does take MiraLAX at home but has not had any bowel movement for the past few days. Abdominal x-ray ordered. Dulcolax suppository ordered with MiraLAX to be given daily. Vancomycin will be discontinued as no episodes of fever noted. No source of infection found blood cultures and urine culture has been negative so far. According to the at bedside patient did not get any antibiotic for the urinary tract infection but did have positive urine cultures on 03/24 done at the oncology office. evaluated the patient bedside. Appears comfortable but does complain of 7 out of 10 pain in the left lower quadrant. Abdominal x-ray obtained yesterday did not suggest any sign of obstruction. Patient has some improvement of pain with Dilaudid and OxyContin. She did have a bowel movement yesterday with improvement in symptoms. Will try Maalox to help with gas relief. Patient has not been eating as much due to concern for burning in her abdomen. Abdominal pain is nonspecific and is diffuse in nature. Abdomen exam. We will increase pantoprazole to 40 mg twice a day with plans to set patient up for EGD as outpatient. Continue MiraLAX 17 g daily to help with constipation. Continue sucralfate 4 times a day. Urine culture and blood culture has been negative. No antibiotics on discharge needed Discharge exam - Constitutional General appearance: cooperative, no acute distress, cachectic - EENT Eyes: anicteric sclerae, pupil are equal and round , normal appearance ENT: hearing grossly normal - Neck Neck: no lymphadenopathy, normal ROM - Respiratory Respiratory: bilateral: CTA, negative: diminished, dullness, rales, rhonchi - Cardiovascular Rhythm: regular Heart sounds: normal: S1, S2 Abnormal Heart Sounds: no systolic murmur, no diastolic murmur, no rub, no S3 Gallop, no S4 Gallop, no click, no other - Gastrointestinal General gastrointestinal: normal bowel sounds, soft tender to palpate diffusely - Integumentary Integumentary: no rash - Neurologic Neurologic: CNII-XII intact - Musculoskeletal Musculoskeletal: gait normal, strength equal bilaterally - Psychiatric Psychiatric: A&O x's 3, appropriate affect Discharge diagnosis 1. Abdominal pain, nausea, vomiting, diarrhea with dehydration secondary to chemotherapy , constipation and symptomatic GERD 2. Febrile neutropenia. urine and blood culture negative, no sourse of infection found 3. Lactic acidosis secondary to dehydration. 4. Pancreatic cancer status post Whipple procedure and chemoradiation in October 2019 , with recent diagnosis of metastatic pancreatic disease to the liver, currently undergoing chemotherapy. Has completed cycle 1 on 03/25 CAT scan shows progression of hepatic lesions. Continue Zenpep at home dosing. 5. Diabetes mellitus type 1 post subtotal pancreatectomy for the pancreatic surgery. C-peptide low 6. Hyperlipidemia. 7. Hypertension 8. Paroxysmal atrial fibrillation 9. Symptomatic GERD. 10. Severe protein calorie malnutrition. 11. DVT prophylaxis. Eliquis. 12 Pancytopenia secondary to chemotherapy 13. Loss of appetite with depression. 14 acute on chronic abdominal pain 15. Constipation MiraLAX added. Discharge plan: Most likely return home with home care . Patient Condition at Discharge: Stable Plan - Discharge Summary Discharge Rx Participant: Yes New Discharge Prescriptions: New Mag Hydrox/Al Hydrox/Simeth [Maalox] 30 ml PO Q4HR PRN #250 ml PRN Reason: Gi Upset polyethylene glycoL 3350 [Miralax] 17 gm PO DAILY powd.pack Continue Losartan [Cozaar] 25 mg PO DAILY Fenofibrate 54 mg PO DAILY Apixaban [Eliquis] 5 mg PO BID Latanoprost/Pf [Latanoprost 0.005% Eye Drop] 1 drop BOTH EYES HS Megestrol [Megace] 40 mg PO BID Pioglitazone [Actos] 15 mg PO DAILY Ondansetron HCl [Zofran] 4 mg PO Q6H PRN PRN Reason: Nausea And Vomiting oxyCODONE HCL [OxyIR] 5 mg PO TID Metoprolol Tartrate [Lopressor] 25 mg PO BID Magic Mouthwash 15 ml PO QID PRN PRN Reason: Pain Lidocaine-Prilocaine Cream [Emla Cream 2.5%/2.5%] 1 applic TOPICAL DAILY PRN PRN Reason: port access Lipase/Protease/Amylase [Creon Dr 6,000 Units Capsule] 18,000 units PO AC-TID Sucralfate [Carafate] 1 gm PO ACHS Lipase/Protease/Amylase [Jose Francisco Gibbs 6,000 Units Capsule] 12,000 units PO DAILY PRN PRN Reason: snacks Changed Dicyclomine [Bentyl] 10 mg PO QID PRN #0 PRN Reason: abd pain Mirtazapine 15 mg PO HS #0 Pantoprazole [Protonix] 40 mg PO BID #30 tablet.dr Discontinued Fluconazole [Diflucan] 150 mg PO ONCE Discharge Medication List Fenofibrate 54 mg PO DAILY 10/04/17 [History] Losartan [Cozaar] 25 mg PO DAILY 10/04/17 [History] Apixaban [Eliquis] 5 mg PO BID 01/31/20 [History] Latanoprost/Pf [Latanoprost 0.005% Eye Drop] 1 drop BOTH EYES HS 03/26/20 [History] Lidocaine-Prilocaine Cream [Emla Cream 2.5%/2.5%] 1 applic TOPICAL DAILY PRN 03/26/20 [History] Lipase/Protease/Amylase [Jose Francisco Gibbs 6,000 Units Capsule] 12,000 units PO DAILY PRN 03/26/20 [History] Lipase/Protease/Amylase [Jose Francisco Gibbs 6,000 Units Capsule] 18,000 units PO AC-TID 03/26/20 [History] Magic Mouthwash 15 ml PO QID PRN 03/26/20 [History] Megestrol [Megace] 40 mg PO BID 03/26/20 [History] Metoprolol Tartrate [Lopressor] 25 mg PO BID 03/26/20 [History] Ondansetron HCl [Zofran] 4 mg PO Q6H PRN 03/26/20 [History] Pioglitazone [Actos] 15 mg PO DAILY 03/26/20 [History] Sucralfate [Carafate] 1 gm PO ACHS 03/26/20 [History] oxyCODONE HCL [OxyIR] 5 mg PO TID 03/26/20 [History] Dicyclomine [Bentyl] 10 mg PO QID PRN #0 03/29/20 [Rx] Mag Hydrox/Al Hydrox/Simeth [Maalox] 30 ml PO Q4HR PRN #250 ml 03/29/20 [Rx] Mirtazapine 15 mg PO HS #0 03/29/20 [Rx] Pantoprazole [Protonix] 40 mg PO BID #30 tablet.dr 03/29/20 [Rx] polyethylene glycoL 3350 [Miralax] 17 gm PO DAILY powd.pack 03/29/20 [Rx] Follow up Appointment(s)/Referral(s): Glenny Velez MD [Primary Care Provider] - 1-2 days Discharge Disposition: HOME WITH HOME HEALTH SERVICES
[2020-03-29 13:22] VITALS: BP 175/77; PULSE 73; TEMP 98.6
== END 2020-03-29 14:48 | disposition home or self-care (01) | DRG 391 ==
LOC: EC 15:59 → 6NMEDSUR 19:50
PROVIDERS: ADMIT Internal Medicine Geriatric Medicine; ATTEND Internal Medicine Geriatric Medicine
DX: R10.84 Generalized abdominal pain (principal); D61.810 Antineoplastic chemotherapy induced pancytopenia; E43 Unspecified severe protein-calorie malnutrition; C78.7 Secondary malignant neoplasm of liver and intrahepatic bile duct; Z68.1 Body mass index [BMI] 19.9 or less, adult; D70.9 Neutropenia, unspecified; E10.9 Type 1 diabetes mellitus without complications; T45.1X5A Adverse effect of antineoplastic and immunosuppressive drugs, initial encounter; E86.0 Dehydration; K59.00 Constipation, unspecified; G89.3 Neoplasm related pain (acute) (chronic); E78.5 Hyperlipidemia, unspecified; F32.9 Major depressive disorder, single episode, unspecified; F41.9 Anxiety disorder, unspecified; I10 Essential (primary) hypertension; I48.0 Paroxysmal atrial fibrillation; K21.9 Gastro-esophageal reflux disease without esophagitis; R50.81 Fever presenting with conditions classified elsewhere; G43.909 Migraine, unspecified, not intractable, without status migrainosus; K44.9 Diaphragmatic hernia without obstruction or gangrene; M19.90 Unspecified osteoarthritis, unspecified site; R10.32 Left lower quadrant pain; R19.7 Diarrhea, unspecified; R11.2 Nausea with vomiting, unspecified; G89.29 Other chronic pain; Z79.01 Long term (current) use of anticoagulants; Z79.84 Long term (current) use of oral hypoglycemic drugs; Z79.899 Other long term (current) drug therapy; Z79.891 Long term (current) use of opiate analgesic; Z91.09 Other allergy status, other than to drugs and biological substances; Z98.1 Arthrodesis status; Z90.710 Acquired absence of both cervix and uterus; Z90.411 Acquired partial absence of pancreas; Z87.891 Personal history of nicotine dependence; Z87.440 Personal history of urinary (tract) infections; Z85.07 Personal history of malignant neoplasm of pancreas; Z98.51 Tubal ligation status; Z90.49 Acquired absence of other specified parts of digestive tract; Z98.890 Other specified postprocedural states; Z87.19 Personal history of other diseases of the digestive system; Z87.39 Personal history of other diseases of the musculoskeletal system and connective tissue; Z82.49 Family history of ischemic heart disease and other diseases of the circulatory system; Z83.3 Family history of diabetes mellitus; Z80.9 Family history of malignant neoplasm, unspecified; Y92.9 Unspecified place or not applicable
CPT/HCPCS: 36415; 71046; 74018; 74177; 80053; 80202; 81001; 81003; 82150; 82565; 83605; 83690; 83735; 85025; 87040; 87077; 87086; 87186; 96365; 96366; 96367; 96375; 99285

== ENCOUNTER → 2020-04-27 | Outpatient (CLI) | payer MEDICARE ==
[2020-04-27 14:27] VITALS: BP 127/74; PULSE 65; RESP 14; TEMP 98
--- NOTE | 2020-04-27 14:35 | P.PAINCN ---
History of Present Illness - Reason for Consult Consult date: 04/27/20 - History of Present Illness Mrs. Carrera 69-year-old female with a history of pancreatic cancer status post Whipple procedure. She's been seen by oncology. She was recently diagnosed with metastatic disease to the liver. She has been in hospital recently for acute diarrhea and was treated with hydration and empiric antibiotics. She is most recently been started on fentanyl 25 g patch on April 10. She was given a 30 day supply with refills. She was also started on Lyrica 50 mg 3 times a day. At this point she continues to complain of abdominal pain mostly burning sensation when she tries to eat anything. She is scheduled to see oncology next week. She has not started any chemotherapy at this time. Past Medical History Past Medical History: Atrial Fibrillation, Cancer, Diabetes Mellitus, GERD/Reflux, Hyperlipidemia, Hypertension, Osteoarthritis (OA) Additional Past Medical History / Comment(s): MIGRAINE HEADACHES, , weight loss, abd. pain after eating, constipation, cancer pancreatic mets to 2 spots on liver History of Any Multi-Drug Resistant Organisms: None Reported Past Surgical History: Back Surgery, Bladder Surgery, Cholecystectomy, Hernia Repair, Hysterectomy, Orthopedic Surgery, Tubal Ligation Additional Past Surgical History / Comment(s): NECK FUSION X2, LEFT SHOULDERx 2,UMBILICAL HERNIA. Surgery for ectopic . back surg. x2, pancreatic surgery 2019, whipple October 15 2019. Past Anesthesia/Blood Transfusion Reactions: No Reported Reaction Past Psychological History: Anxiety, Depression Additional Psychological History / Comment(s): "chemo brain" Smoking Status: Former smoker Past Alcohol Use History: None Reported Additional Past Alcohol Use History / Comment(s): STARTED SMOKING AT AGE 18 QUIT IN 2009 Past Drug Use History: None Reported - Past Family History Mother Family Medical History: Diabetes Mellitus Brother(s) Family Medical History: Myocardial Infarction ([place]) Sister(s) Family Medical History: Myocardial Infarction ([place]) Medications and Allergies Home Medications Medication Instructions Recorded Confirmed Type Fenofibrate 54 mg PO DAILY 10/04/17 03/26/20 History Losartan [Cozaar] 25 mg PO DAILY 10/04/17 03/26/20 History Apixaban [Eliquis] 5 mg PO BID 01/31/20 03/26/20 History Latanoprost/Pf [Latanoprost 0.005% 1 drop BOTH EYES HS 03/26/20 03/26/20 History Eye Drop] Lidocaine-Prilocaine Cream [Emla 1 applic TOPICAL DAILY PRN 03/26/20 03/26/20 History Cream 2.5%/2.5%] Lipase/Protease/Amylase [Jose Francisco Gibbs 12,000 units PO DAILY PRN 03/26/20 03/26/20 History 6,000 Units Capsule] Lipase/Protease/Amylase [Jose Francisco Gibbs 18,000 units PO AC-TID 03/26/20 03/26/20 History 6,000 Units Capsule] Magic Mouthwash 15 ml PO QID PRN 03/26/20 03/26/20 History Megestrol [Megace] 40 mg PO BID 03/26/20 03/26/20 History Metoprolol Tartrate [Lopressor] 25 mg PO BID 03/26/20 03/26/20 History Ondansetron HCl [Zofran] 4 mg PO Q6H PRN 03/26/20 03/26/20 History Pioglitazone [Actos] 15 mg PO DAILY 03/26/20 03/26/20 History Sucralfate [Carafate] 1 gm PO ACHS 03/26/20 03/26/20 History oxyCODONE HCL [OxyIR] 5 mg PO TID 03/26/20 03/26/20 History Dicyclomine [Bentyl] 10 mg PO QID PRN #0 03/29/20 03/26/20 Rx Mag Hydrox/Al Hydrox/Simeth 30 ml PO Q4HR PRN #250 ml 03/29/20 Rx [Maalox] Mirtazapine 15 mg PO HS #0 03/29/20 03/26/20 Rx Pantoprazole [Protonix] 40 mg PO BID #30 tablet.dr 03/29/20 03/26/20 Rx polyethylene glycoL 3350 [Miralax] 17 gm PO DAILY powd.pack 03/29/20 Rx Allergies Allergy/AdvReac Type Severity Reaction Status Date / Time lisinopril Allergy Unknown Verified 04/27/20 14:15 [id number]-[id number] Reductase Allergy Swelling Verified 04/27/20 14:15 Inhibitor Physical Exam PHYSICAL EXAM: Constitutional: Awake and alert no distress Cardiovascular exam: Regular rate, no lower extremity edema, palpable pulses bilaterally Respiratory exam: No audible wheezing, no accessory muscle usage Abdominal exam: Thin, tender to palpation, incision healing. Muscular skeletal exam: - Cervical spine: Nontender to palpation bilaterally. Range of motion is not limited. Spurling is negative bilateral. Facet loading is negative bilaterally - Lumbar spine: Preserved lumbar lordosis. No changes in skin. Nontender palpation bilateral. Neuro exam: Normal sensation bilateral upper and lower extremities. Deep tendon reflexes are 2+ bilaterally. Rice's is negative Psychiatric exam: Cooperative, good insight Assessment and Plan Assessment: #1 pancreatic cancer with metastasis #2 abdominal pain #3 opioid dependence Plan: Spent a lot of time with the patient and her discussing celiac plexus block. We discussed doing under light sedation as both diagnostic and therapeutic in nature. If she wants to have deep sedation we will have to do just local anesthetic with steroid and send her off with a pain diary to evaluate if it has any improvement. Given her pancreatic cancer with metastasis, I believe a neurolysis would be beneficial to the patient. If we are able to perform both on one day, we can potentially use phenol or alcohol for more permanent celiac plexus neurolysis. They want to think about it some more give us a call back to determine if he wanted move forward. I discussed in detail with the patient and her the risks, benefits, and alternatives to the procedure. With discussed nerve damage, infection, bleeding, as well as damage to the major blood vessels. PQRS Measure Charge Sheet Measure #130: Documentation of Current Meds in Medical Chart: Patient's medications documented in chart Measure #226: Tobacco Use: Screen & Cessation Intervention: Pt not a tobacco user Measure #111: Pneumonia Vaccination: Pneumococcal vaccine administered or previously received Measure #47: Advance Care Plan: Advance care planning discussed & documented, plan or surrogate given Measure #412: Opioid Treatment Agreement: No documentation of signed opioid treatment agreement Measure #408: Opioid Therapy Follow-up Evaluation: Patient had NO f/u eval minimum every 3 months during opioid therapy Measure #317: Preventitive Care & Scrn High Bld Press & F/U: Normal blood pressure, f/u not required Measure #128: Body Mass Index (BMI) Screening & Follow-up: BMI documented within normal parameters Measure #131: Pain Assessment & Follow-up: Pain positive & plan documented Measure #431: Unhealthy Alcohol Use Preventative Care & Scrn: Patient not identified as an unhealthy alcohol user PQRS Narrative: Smoking Status Former smoker Home Medications: Ambulatory Orders Fenofibrate 54 mg PO DAILY 10/04/17 Losartan [Cozaar] 25 mg PO DAILY 10/04/17 Apixaban [Eliquis] 5 mg PO BID 01/31/20 Latanoprost/Pf [Latanoprost 0.005% Eye Drop] 1 drop BOTH EYES HS 03/26/20 Lidocaine-Prilocaine Cream [Emla Cream 2.5%/2.5%] 1 applic TOPICAL DAILY PRN 03/26/20 Lipase/Protease/Amylase [Jose Francisco Gibbs 6,000 Units Capsule] 12,000 units PO DAILY PRN 03/26/20 Lipase/Protease/Amylase [Jose Francisco Gibbs 6,000 Units Capsule] 18,000 units PO AC-TID 03/26/20 Magic Mouthwash 15 ml PO QID PRN 03/26/20 Megestrol [Megace] 40 mg PO BID 03/26/20 Metoprolol Tartrate [Lopressor] 25 mg PO BID 03/26/20 Ondansetron HCl [Zofran] 4 mg PO Q6H PRN 03/26/20 Pioglitazone [Actos] 15 mg PO DAILY 03/26/20 Sucralfate [Carafate] 1 gm PO ACHS 03/26/20 oxyCODONE HCL [OxyIR] 5 mg PO TID 03/26/20 Dicyclomine [Bentyl] 10 mg PO QID PRN #0 03/29/20 Mag Hydrox/Al Hydrox/Simeth [Maalox] 30 ml PO Q4HR PRN #250 ml 03/29/20 Mirtazapine 15 mg PO HS #0 03/29/20 Pantoprazole [Protonix] 40 mg PO BID #30 tablet.dr 03/29/20 polyethylene glycoL 3350 [Miralax] 17 gm PO DAILY powd.pack 03/29/20
== END | disposition home or self-care (01) ==
LOC: PNWHC3 13:52
PROVIDERS: ATTEND Hospitalist
DX: R10.9 Unspecified abdominal pain (principal); C80.1 Malignant (primary) neoplasm, unspecified; E11.9 Type 2 diabetes mellitus without complications; K21.9 Gastro-esophageal reflux disease without esophagitis; E78.5 Hyperlipidemia, unspecified; I10 Essential (primary) hypertension; M19.90 Unspecified osteoarthritis, unspecified site; G43.909 Migraine, unspecified, not intractable, without status migrainosus; F11.20 Opioid dependence, uncomplicated; Z88.8 Allergy status to other drugs, medicaments and biological substances; Z79.899 Other long term (current) drug therapy; Z79.84 Long term (current) use of oral hypoglycemic drugs; Z87.891 Personal history of nicotine dependence; Z79.818 Long term (current) use of other agents affecting estrogen receptors and estrogen levels
CPT/HCPCS: 99211

== ENCOUNTER → 2020-05-26 | Outpatient (CLI) | payer MEDICARE ==
[2020-05-26 14:03] LABS: African American GFR (CKD) >90 (>60 ml/min/1.73 sqM); Blood Urea Nitrogen 14 mg/dL (7-17); Non-African American GFR(CKD) >90 (>60 ml/min/1.73 sqM)
--- NOTE | 2020-05-26 15:25 | CT ---
EXAMINATION TYPE: CT abdomen w con DATE OF EXAM: 05/26/2020 COMPARISON: 03/26/2020 HISTORY: f/u pancreatic ca CT DLP: 306.4 mGycm CONTRAST: CT scan of the abdomen is performed with Oral Contrast and with IV Contrast, patient injected with 10 0 mL of Isovue 300. FINDINGS: LUNG BASES-: No visible nodule. No infiltrate. LIVER/GB: No calcified gallstones. Dominant mass right hepatic lobe is again noted and currently me asures 3.4 cm versus approximately 3.5 cm previously. Additional peripheral nodule measures 1.7 cm. L esion within the left hepatic lobe measures 1.4 cm versus 1.4 cm previously. Underlying hepatic steat osis is now identified. Biliary tree is of normal caliber. PANCREAS: Partial pancreatectomy changes are redemonstrated. Remaining pancreatic head and uncinate p rocess have a similar appearance to prior examination. Postsurgical changes about the remaining pancr eatic bed. SPLEEN: No splenic enlargement. No lesion seen. ADRENALS: No nodule. No thickening. KIDNEYS/BLADDER: No hydronephrosis. No nephrolithiasis. No distinct renal mass. Urinary bladder g rossly unremarkable. BOWEL: Normal appendix. Normal bowel caliber. No inflammation. LYMPH NODES: No greater than 1cm abdominal or pelvic lymph nodes are appreciated. AORTA: No significant abnormality. OSSEOUS STRUCTURES: No fixation lumbar spine. OTHER: No significant additional abnormality is seen. IMPRESSION: 1. No acute process identified. 2. Hepatic metastases with underlying fatty hepatic infiltration. 3. Postsurgical changes of partial pancreatectomy.
== END | disposition home or self-care (01) ==
LOC: RADCTMAIN 12:56
PROVIDERS: ATTEND Internal Medicine Hematology & Oncology
DX: Z03.89 Encounter for observation for other suspected diseases and conditions ruled out (principal); C25.1 Malignant neoplasm of body of pancreas; C78.7 Secondary malignant neoplasm of liver and intrahepatic bile duct; K76.0 Fatty (change of) liver, not elsewhere classified; Z90.49 Acquired absence of other specified parts of digestive tract; Z88.8 Allergy status to other drugs, medicaments and biological substances
CPT/HCPCS: 82565; 84520; 74160; 36415; J1642; Q9967

== ENCOUNTER 2020-07-29 17:04 | Emergency (ER) | payer MEDICARE ==
--- NOTE | 2020-07-29 17:33 | ED ---
Extremity Problem HPI - General Source: patient, family, RN notes reviewed Mode of arrival: wheelchair Limitations: no limitations <Messi Ames - Last Filed: 07/29/20 17:32> <Olivia Deleon - Last Filed: 08/01/20 12:13> - General Chief complaint: Extremity Problem,Nontraumatic Stated complaint: feet swelling Time Seen by Provider: 07/29/20 17:18 - History of Present Illness Initial comments: This a 69-year-old female presents emergency Department chief complaint left leg pain, bilateral leg swelling left greater than right. Patient states his started 1 week ago she did see her clinical business analyst who told her to increase her fluids. Patient states like a better she has pain when she amylase. Patient does admit that she normally has some swelling she has some neuropathy from her diabetes. Patient denies any history DVT no chest pain or shortness of breath. 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 (Messi Ames) - Related Data Home Medications Medication Instructions Recorded Confirmed Fenofibrate 54 mg PO DAILY 10/04/17 07/29/20 Apixaban [Eliquis] 5 mg PO BID 01/31/20 07/29/20 Latanoprost/Pf [Latanoprost 0.005% 1 drop BOTH EYES HS 03/26/20 07/29/20 Eye Drop] Lidocaine-Prilocaine Cream [Emla 1 applic TOPICAL DAILY PRN 03/26/20 07/29/20 Cream 2.5%/2.5%] Lipase/Protease/Amylase [Jose Francisco Gibbs 12,000 units PO DAILY PRN 03/26/20 07/29/20 6,000 Units Capsule] Lipase/Protease/Amylase [Jose Francisco Gibbs 18,000 units PO AC-TID 03/26/20 07/29/20 6,000 Units Capsule] Magic Mouthwash 15 ml PO QID PRN 03/26/20 07/29/20 Megestrol [Megace] 40 mg PO BID 03/26/20 07/29/20 Metoprolol Tartrate [Lopressor] 25 mg PO BID 03/26/20 07/29/20 Ondansetron HCl [Zofran] 4 mg PO Q6H PRN 03/26/20 07/29/20 Sucralfate [Carafate] 1 gm PO ACHS 03/26/20 07/29/20 Metoclopramide [Reglan] 10 mg PO TID 07/14/20 07/29/20 Pregabalin [Lyrica] 50 mg PO TID 07/14/20 07/29/20 fentaNYL 50MCG/HR PATCH [Duragesic 50 mcg TRANSDERM Q72H 07/14/20 07/29/20 50MCG/HR] Dicyclomine [Bentyl] 20 mg PO QID PRN 07/29/20 07/29/20 Diphenox-Atrop 2.5-0.025 mg 1 tab PO TID PRN 07/29/20 07/29/20 [Lomotil] Insulin Degludec [Tresiba 12 units SQ HS 07/29/20 07/29/20 Flextouch U-100] Losartan [Cozaar] 50 mg PO DAILY 07/29/20 07/29/20 Pioglitazone [Actos] 30 mg PO DAILY 07/29/20 07/29/20 Potassium Chloride ER [K-Dur 20] 20 meq PO DAILY 07/29/20 07/29/20 Previous Rx's Medication Instructions Recorded Pantoprazole [Protonix] 40 mg PO BID #30 tablet. 03/29/20 Furosemide [Lasix] 20 mg PO BID #20 tablet 07/29/20 Allergies Allergy/AdvReac Type Severity Reaction Status Date / Time lisinopril Allergy Unknown Verified 07/29/20 18:40 Cekcrbd-Fxm-Qyl Reductase Allergy Swelling Verified 07/29/20 18:40 Inhibitor Review of Systems ROS Other: All systems not noted in ROS Statement are negative. <Messi Ames - Last Filed: 07/29/20 17:32> ROS Other: All systems not noted in ROS Statement are negative. <Olivia Deleon - Last Filed: 08/01/20 12:13> ROS Statement: Those systems with pertinent positive or pertinent negative responses have been documented in the HPI. Past Medical History Past Medical History: Atrial Fibrillation, Cancer, Diabetes Mellitus, GERD/Reflux, Hyperlipidemia, Hypertension, Osteoarthritis (OA) Additional Past Medical History / Comment(s): MIGRAINE HEADACHES, , weight loss, abd. pain after eating, constipation, cancer pancreatic mets to 2 spots on liver History of Any Multi-Drug Resistant Organisms: None Reported Past Surgical History: Back Surgery, Bladder Surgery, Cholecystectomy, Hernia Repair, Hysterectomy, Orthopedic Surgery, Tubal Ligation Additional Past Surgical History / Comment(s): NECK FUSION X2, LEFT SHOULDERx 2,UMBILICAL HERNIA. Surgery for ectopic . back surg. x2, pancreatic surgery 2019, whipple October 15 2019. Past Anesthesia/Blood Transfusion Reactions: No Reported Reaction Past Psychological History: Anxiety, Depression Smoking Status: Former smoker Past Alcohol Use History: None Reported Past Drug Use History: None Reported - Past Family History Mother Family Medical History: Diabetes Mellitus Brother(s) Family Medical History: Myocardial Infarction (ID) Sister(s) Family Medical History: Myocardial Infarction (ID) <Messi Ames - Last Filed: 07/29/20 17:32> General Exam Limitations: no limitations General appearance: alert, in no apparent distress Head exam: Present: atraumatic, normocephalic, normal inspection Respiratory exam: Present: normal lung sounds bilaterally. Absent: respiratory distress, wheezes, rales, rhonchi, stridor Cardiovascular Exam: Present: regular rate, normal rhythm, normal heart sounds. Absent: systolic murmur, diastolic murmur, rubs, gallop, clicks Extremities exam: Present: other (There is a leg swelling noted left there is mild on the right there is palpable pulses equal bilaterally equal color equal warmth there is tenderness to the left lower extremity) <Messi Ames - Last Filed: 07/29/20 17:32> Course Vital Signs 07/29/20 07/29/20 07/29/20 17:09 18:14 21:00 Temperature 99.0 F 98.0 F Pulse Rate 58 L 66 Respiratory 16 18 Rate Blood Pressure 140/79 153/80 133/55 O2 Sat by Pulse 99 98 Oximetry 07/29/20 07/29/20 22:17 23:40 Temperature 97.8 F 98.0 F Pulse Rate 72 Respiratory 18 Rate Blood Pressure 126/73 O2 Sat by Pulse Oximetry Medical Decision Making - Lab Data Result diagrams: 07/29/20 17:56 07/29/20 21:13 <Olivia Deleon - Last Filed: 08/01/20 12:13> - Medical Decision Making Patient signed out to me after hyperkalemia treatment provided and patient US demonstrated no clot. Patient sent for abd CT to rule out IVC compression. Ct negative for this. Repeat lab draws demonstrate improvement in hyperkalemia. Patient does have an episode of presyncope and diaphoresis. Glucose found to be low. Patient given an amp of d50 and food to eat. Repeat accuchecks demonstrate improved glucose. Discussed the results with the patient. She was given 40 mg lasix and will be given a rx for her le edema. Instructed to keep them elevated. Jaciel bandages placed - patient to wear during the day and take off at night. Repeat US in 1 week through primary care or oncology - patient reports to oncology visit on the . Request repeat blood work at that time to check kidney function and potassium. Return to the ED for any new or worsening symptoms. Patient agreed and was d/c in stable condition (Olivia Deleon) - Lab Data Lab Results 07/29/20 07/29/20 07/29/20 Range/Units 17:56 17:56 17:56 WBC 6.1 (3.8-10.6) k/uL RBC 3.38 L (3.80-5.40) m/uL Hgb 10.4 L (11.4-16.0) gm/dL Hct 32.4 L (34.0-46.0) % MCV 95.9 (80.0-100.0) fL MCH 30.9 (25.0-35.0) pg MCHC 32.2 (31.0-37.0) g/dL RDW 15.3 (11.5-15.5) % Plt Count 188 (150-450) k/uL MPV 8.9 Neutrophils % 58 % Lymphocytes % 23 % Monocytes % 14 % Eosinophils % 2 % Basophils % 2 % Neutrophils # 3.5 (1.3-7.7) k/uL Lymphocytes # 1.4 (1.0-4.8) k/uL Monocytes # 0.8 (0-1.0) k/uL Eosinophils # 0.1 (0-0.7) k/uL Basophils # 0.1 (0-0.2) k/uL Hypochromasia Slight PT 10.6 (9.0-12.0) sec INR 1.0 (<1.2) APTT 26.5 (22.0-30.0) sec Sodium 137 (137-145) mmol/L Potassium 5.8 H (3.5-5.1) mmol/L Chloride 102 (98-107) mmol/L Carbon Dioxide 26 (22-30) mmol/L Anion Gap 9 mmol/L BUN 17 (7-17) mg/dL Creatinine 0.71 (0.52-1.04) mg/dL Est GFR (CKD-EPI)AfAm >90 (>60 ml/min/1.73 sqM) Est GFR (CKD-EPI)NonAf 88 (>60 ml/min/1.73 sqM) Glucose 105 H (74-99) mg/dL POC Glucose (mg/dL) (75-99) mg/dL POC Glu Web Machine Tender ID Calcium 9.7 (8.4-10.2) mg/dL NT-Pro-B Natriuret Pep pg/mL 07/29/20 07/29/20 07/29/20 Range/Units 17:56 21:00 21:13 WBC (3.8-10.6) k/uL RBC (3.80-5.40) m/uL Hgb (11.4-16.0) gm/dL Hct (34.0-46.0) % MCV (80.0-100.0) fL MCH (25.0-35.0) pg MCHC (31.0-37.0) g/dL RDW (11.5-15.5) % Plt Count (150-450) k/uL MPV Neutrophils % % Lymphocytes % % Monocytes % % Eosinophils % % Basophils % % Neutrophils # (1.3-7.7) k/uL Lymphocytes # (1.0-4.8) k/uL Monocytes # (0-1.0) k/uL Eosinophils # (0-0.7) k/uL Basophils # (0-0.2) k/uL Hypochromasia PT (9.0-12.0) sec INR (<1.2) APTT (22.0-30.0) sec Sodium 135 L (137-145) mmol/L Potassium 3.4 L (3.5-5.1) mmol/L Chloride 101 (98-107) mmol/L Carbon Dioxide 28 (22-30) mmol/L Anion Gap 6 mmol/L BUN 16 (7-17) mg/dL Creatinine 0.66 (0.52-1.04) mg/dL Est GFR (CKD-EPI)AfAm >90 (>60 ml/min/1.73 sqM) Est GFR (CKD-EPI)NonAf >90 (>60 ml/min/1.73 sqM) Glucose 272 H (74-99) mg/dL POC Glucose (mg/dL) 40 L (75-99) mg/dL POC Glu Web Machine Tender ID Leta Dorsey Calcium 9.3 (8.4-10.2) mg/dL NT-Pro-B Natriuret Pep 159 pg/mL 07/29/20 07/29/20 07/29/20 Range/Units 21:28 22:11 22:46 WBC (3.8-10.6) k/uL RBC (3.80-5.40) m/uL Hgb (11.4-16.0) gm/dL Hct (34.0-46.0) % MCV (80.0-100.0) fL MCH (25.0-35.0) pg MCHC (31.0-37.0) g/dL RDW (11.5-15.5) % Plt Count (150-450) k/uL MPV Neutrophils % % Lymphocytes % % Monocytes % % Eosinophils % % Basophils % % Neutrophils # (1.3-7.7) k/uL Lymphocytes # (1.0-4.8) k/uL Monocytes # (0-1.0) k/uL Eosinophils # (0-0.7) k/uL Basophils # (0-0.2) k/uL Hypochromasia PT (9.0-12.0) sec INR (<1.2) APTT (22.0-30.0) sec Sodium (137-145) mmol/L Potassium (3.5-5.1) mmol/L Chloride (98-107) mmol/L Carbon Dioxide (22-30) mmol/L Anion Gap mmol/L BUN (7-17) mg/dL Creatinine (0.52-1.04) mg/dL Est GFR (CKD-EPI)AfAm (>60 ml/min/1.73 sqM) Est GFR (CKD-EPI)NonAf (>60 ml/min/1.73 sqM) Glucose (74-99) mg/dL POC Glucose (mg/dL) 115 H 67 L 77 (75-99) mg/dL POC Glu Web Machine Tender ID Leta Dorsey Joanna Lee, Robin Calcium (8.4-10.2) mg/dL NT-Pro-B Natriuret Pep pg/mL 07/29/20 Range/Units 23:12 WBC (3.8-10.6) k/uL RBC (3.80-5.40) m/uL Hgb (11.4-16.0) gm/dL Hct (34.0-46.0) % MCV (80.0-100.0) fL MCH (25.0-35.0) pg MCHC (31.0-37.0) g/dL RDW (11.5-15.5) % Plt Count (150-450) k/uL MPV Neutrophils % % Lymphocytes % % Monocytes % % Eosinophils % % Basophils % % Neutrophils # (1.3-7.7) k/uL Lymphocytes # (1.0-4.8) k/uL Monocytes # (0-1.0) k/uL Eosinophils # (0-0.7) k/uL Basophils # (0-0.2) k/uL Hypochromasia PT (9.0-12.0) sec INR (<1.2) APTT (22.0-30.0) sec Sodium (137-145) mmol/L Potassium (3.5-5.1) mmol/L Chloride (98-107) mmol/L Carbon Dioxide (22-30) mmol/L Anion Gap mmol/L BUN (7-17) mg/dL Creatinine (0.52-1.04) mg/dL Est GFR (CKD-EPI)AfAm (>60 ml/min/1.73 sqM) Est GFR (CKD-EPI)NonAf (>60 ml/min/1.73 sqM) Glucose (74-99) mg/dL POC Glucose (mg/dL) 103 H (75-99) mg/dL POC Glu Web Machine Tender ID Leta Dorsey Calcium (8.4-10.2) mg/dL NT-Pro-B Natriuret Pep pg/mL Disposition <Messi Ames - Last Filed: 07/29/20 17:32> Is patient prescribed a controlled substance at d/c from ED?: No Time of Disposition: 22:11 <Olivia Deleon Jenny - Last Filed: 08/01/20 12:13> Clinical Impression: Leg swelling, Hyperkalemia Disposition: HOME SELF-CARE Condition: Stable Instructions (If sedation given, give patient instructions): Edema (ED) Additional Instructions: Please follow-up with your oncologist at your scheduled appointment on the second. They should repeat laboratory studies including kidney function now that you are on a water pill. You may need a repeat ultrasound in 1 week if you have persistent swelling in you legs. Return to the emergency room for any new or worsening symptoms Prescriptions: Furosemide [Lasix] 20 mg PO BID #20 tablet Referrals: Glenny Velez MD [Primary Care Provider] - 1-2 days Hudson Herman MD [STAFF PHYSICIAN] - 1-2 days
[2020-07-29 18:03] LABS: Basophils # (A) 0.1 k/uL (0-0.2); Basophils % (A) 2 %; Eosinophils # (A) 0.1 k/uL (0-0.7); Eosinophils % (A) 2 %; HCT 32.4 % (34.0-46.0); HGB 10.4 gm/dL (11.4-16.0); Hypochromasia Slight; Lymphocytes # (A) 1.4 k/uL (1.0-4.8); Lymphocytes % (A) 23 %; MCH 30.9 pg (25.0-35.0); MCHC 32.2 g/dL (31.0-37.0); MCV 95.9 fL (80.0-100.0); Mean Platelet Volume 8.9; Monocytes # (A) 0.8 k/uL (0-1.0); Monocytes % (A) 14 %; Neutrophils # (A) 3.5 k/uL (1.3-7.7); Neutrophils % (A) 58 %; Platelet Count 188 k/uL (150-450); RBC 3.38 m/uL (3.80-5.40); RDW 15.3 % (11.5-15.5); WBC 6.1 k/uL (3.8-10.6)
[2020-07-29 18:12] LABS: African American GFR (CKD) >90 (>60 ml/min/1.73 sqM); Anion Gap 9 mmol/L; Blood Urea Nitrogen 17 mg/dL (7-17); Calcium 9.7 mg/dL (8.4-10.2); Carbon Dioxide 26 mmol/L (22-30); Chloride 102 mmol/L (98-107); Glucose 105 mg/dL (74-99); Non-African American GFR(CKD) 88 (>60 ml/min/1.73 sqM); Potassium 5.8 mmol/L (3.5-5.1); Sodium 137 mmol/L (137-145)
[2020-07-29 18:18] LABS: Partial Thromboplastin Time 26.5 sec (22.0-30.0); Prothrombin Time 10.6 sec (9.0-12.0)
[2020-07-29 18:49] VITALS: RESP 18
--- NOTE | 2020-07-29 19:07 | US ---
EXAMINATION TYPE: US venous doppler duplex LE LT DATE OF EXAM: 07/29/2020 6:30 PM COMPARISON: NONE CLINICAL HISTORY: pain. Pain x 1 day. No hx of DVT. Patient on Eliquis. Hx pancreatic cancer, mets to liver. Patient is currently on chemotherapy. SIDE PERFORMED: Left TECHNIQUE: The lower extremity deep venous system is examined utilizing real time linear array sonog domenic with graded compression, doppler sonography and color-flow sonography. VESSELS IMAGED: Common Femoral Vein Deep Femoral Vein Greater Saphenous Vein * Femoral Vein Popliteal Vein Small Saphenous Vein * Proximal Calf Veins (* superficial vessels) Left Leg: No evidence of DVT in veins imaged at this time from prox calf veins to CFV. There appears to be a hypoechoic/heterogeneous area seen within the left groin measuring 2.5 x 1.0 x 0.7 cm. IMPRESSION: No evidence of deep vein thrombosis in the left leg. There is left inguinal lymph node.
[2020-07-29] MEDS ORDERED: FUROSEMIDE 10 MG/ML 2 ML VIAL IV ONE (19:28)
[2020-07-29] MEDS ORDERED: INSULIN REGULAR 100 UNIT/ML VIAL IV ONE (19:28)
[2020-07-29] MEDS ORDERED: DEXTROSE 50% SYRINGE 50 ML IVP STA ×2 (19:28→21:03)
--- NOTE | 2020-07-29 20:34 | CT ---
EXAMINATION TYPE: CT abdomen pelvis w con DATE OF EXAM: 07/29/2020 COMPARISON: 05/26/2020 HISTORY: Abdominal pain CT DLP: 668.2 mGycm Automated exposure control for dose reduction was used. CONTRAST: Performed with IV Contrast, patient injected with 100 mL of Isovue 300. Images obtained from the diaphragm to the floor the pelvis with IV contrast. Lung bases are clear of infiltrate. There is no pleural effusion. Heart size is normal. There are small calcified hepatic granuloma. Liver shows irregular 6 x 3 cm area of patchy hypodensit y in the inferior right lobe of the liver. Spleen is absent. The stomach is intact. There is no evide nce of pancreatic mass. There are multiple surgical clips in the epigastrium in the retroperitoneum. There are clips from cholecystectomy. There is no adrenal mass. Kidneys show satisfactory contrast opacification. There is no hydronephrosi s. Abdominal aorta is atheromatous. There is no retroperitoneal adenopathy. Bladder distends smoothly . There is no inguinal hernia. There is no free fluid in the pelvis. There is no mesenteric edema. Th ere is no ascites or free air. There is no evidence of a bowel obstruction. There is some retained fe bigg material in the large bowel. There is posterior fusion surgery in the lower lumbar spine. There is a first-degree L4-5 spondylolis thesis at the fusion level. I see no lumbar compression fracture. Bony pelvis is intact. I see no foc al bone destruction. There is some degenerative spurring at the hip joints. IMPRESSION: Irregular multifocal large hypodense area in the right lobe of the liver suggestive of metastatic dis ease that is increased in size compared to exam of 05/26/2020. Previous pancreatic surgery. No dilated ducts.
[2020-07-29 21:01] LABS: Glucose,Whole Blood 40 mg/dL (75-99)
[2020-07-29 21:29] LABS: Glucose,Whole Blood 115 mg/dL (75-99)
[2020-07-29 21:31] LABS: African American GFR (CKD) >90 (>60 ml/min/1.73 sqM); Anion Gap 6 mmol/L; Blood Urea Nitrogen 16 mg/dL (7-17); Calcium 9.3 mg/dL (8.4-10.2); Carbon Dioxide 28 mmol/L (22-30); Chloride 101 mmol/L (98-107); Glucose 272 mg/dL (74-99); Non-African American GFR(CKD) >90 (>60 ml/min/1.73 sqM); Potassium 3.4 mmol/L (3.5-5.1); Sodium 135 mmol/L (137-145)
[2020-07-29 22:12] LABS: Glucose,Whole Blood 67 mg/dL (75-99)
[2020-07-29 22:49] LABS: Glucose,Whole Blood 77 mg/dL (75-99)
[2020-07-29 23:14] LABS: Glucose,Whole Blood 103 mg/dL (75-99)
[2020-07-29 23:48] VITALS: BP 126/73; PULSE 72; TEMP 98
== END 2020-07-29 23:40 | disposition home or self-care (01) ==
LOC: EC 17:04
DX: E87.5 Hyperkalemia (principal); M79.89 Other specified soft tissue disorders; I48.91 Unspecified atrial fibrillation; I10 Essential (primary) hypertension; E78.5 Hyperlipidemia, unspecified; E11.40 Type 2 diabetes mellitus with diabetic neuropathy, unspecified; Z79.01 Long term (current) use of anticoagulants; Z79.899 Other long term (current) drug therapy; Z79.4 Long term (current) use of insulin; Z88.8 Allergy status to other drugs, medicaments and biological substances; Z85.07 Personal history of malignant neoplasm of pancreas; Z98.1 Arthrodesis status; Z87.891 Personal history of nicotine dependence
CPT/HCPCS: 99284 ×2; 96374 ×2; 96375 ×2; 96376 ×2; 36415; 83880; 80048; 85025; 85610; 85730; 93971; 74177; J1940; Q9967

== ENCOUNTER → 2020-11-03 | Outpatient (CLI) | payer MEDICARE ==
--- NOTE | 2020-11-03 12:32 | XR ---
EXAMINATION TYPE: XR chest 2V DATE OF EXAM: 11/03/2020 COMPARISON: 03/26/2020 HISTORY: Shortness of breath TECHNIQUE: Frontal and lateral views of the chest are obtained. FINDINGS: Scattered senescent parenchymal changes noted. Hyperinflation compatible with COPD. No evidence for infiltrate. No evidence for atelectasis. Right-sided MediPort catheter with its dista l tip overlying the SVC. Heart size is stable. Mediastinal structures are stable and grossly unremarkable. No evidence for hilar prominence. Degenerative changes dorsal spine. IMPRESSION: 1. No evidence for acute pulmonary disease.
== END | disposition home or self-care (01) ==
LOC: RADXRMAIN 10:30
PROVIDERS: ATTEND Internal Medicine Hematology & Oncology
DX: R06.02 Shortness of breath (principal)
CPT/HCPCS: 71046

== ENCOUNTER → 2020-11-17 | Outpatient (CLI) | payer MEDICARE ==
--- NOTE | 2020-11-18 06:53 | CT ---
EXAMINATION TYPE: CT ChestAbdPelvis w con DATE OF EXAM: 11/17/2020 COMPARISON: CT abdomen and pelvis July 29, 2020 and older studies HISTORY: Follow up for pancreatic cancer. CT DLP: 1047 mGycm. Automated Exposure Control for Dose Reduction was Utilized. CONTRAST: CT scan of the thorax, abdomen and pelvis is performed with oral and with IV Contrast, patient inject ed with 100ml mL of Isovue 300. FINDINGS: LUNGS: The lungs are grossly clear, there is no concerning parenchymal mass or nodule identified. T here is no pleural effusion or pneumothorax seen. The tracheobronchial tree is patent. MEDIASTINUM: There are no greater than 1 cm hilar or mediastinal lymph nodes. Tiny pericardial effusi on is redemonstrated. No cardiomegaly. OTHER: Right internal jugular Mediport catheter terminates near cavoatrial junction. LIVER/GB: There is better visualization hepatic metastatic disease on current study. There is 9.3 cm heterogeneous enhancing mass right hepatic lobe axial image 56 shows continued increase in size from older studies, central hypodensity or necrosis is present. New adjacent smaller 1.2 cm satellite lesi on posterior right hepatic lobe axial image 52 noted. Gallbladder is surgically absent. Portal vein remains patent but prominent in size with adjacent tortuous vessels anterior inferior to this axial i mage 58 suggesting collateralization. No new biliary dilatation noted. PANCREAS: Surgical changes at this level redemonstrated. Persistent loss of normal fat planes surroun ding SMA axial image 59. Majority of pancreas surgically absent. Portion of the head and uncinate pro cess remain present. SPLEEN: Spleen surgically absent. ADRENALS: No significant abnormality is seen. KIDNEYS: No significant abnormality is seen. BOWEL: Oral contrast reaches level of splenic flexure. Evaluation of bowel slightly suboptimal as pat ient has little intra-abdominal fat. GENITAL ORGANS: Uterus surgically absent. LYMPH NODES: No greater than 1cm abdominal or pelvic lymph nodes are appreciated. OSSEOUS STRUCTURES: Posterior interpedicular rods and screws transfix L4-L5 levels bilaterally. Sligh t grade 1 anterolisthesis L4 on L5. Multilevel facet arthropathy in the mid to lower lumbar spine. OTHER: Mild to moderate mixed plaque of the aorta extends into branch vessels. IMPRESSION: Better visualized worsening hepatic metastatic disease.
== END | disposition home or self-care (01) ==
LOC: RADPROMAIN 11-03 10:28
PROVIDERS: ATTEND Internal Medicine Hematology & Oncology
DX: C78.7 Secondary malignant neoplasm of liver and intrahepatic bile duct (principal); C25.1 Malignant neoplasm of body of pancreas
CPT/HCPCS: 82565; 84520; 71260; 74177; 36415; J1642; Q9967; 71046